=== PATIENT | male | born 1990 | race American Indian/Alaskan Native ===

== ENCOUNTER 2021-08-18 10:00 | Emergency (ER) | payer SELFPAY ==
[2021-08-18] MEDS ORDERED: levETIRAcetam 1000 MG/NS 0.75% 1,000 MG/100 ML BAG IV ONE (10:23)
--- NOTE | 2021-08-18 10:26 | Emergency Department Report ---
ED Seizure HPI - General Chief Complaint: Seizure Stated Complaint: SEIZURE Time Seen by Provider: 08/18/21 10:11 Source: patient Mode of arrival: Wheelchair Limitations: No Limitations - History of Present Illness Initial Comments: Patient is 31 years old male brought to the emergency room by his friend stating that he had seizure today. Patient is post ictal and confused now. Patient is unable to provide history. Patient stated that he is having headache and he is complaining of tongue hurting. Patient is obviously bit his tongue. Patient denied any fever or chills. No neck pain no chest pain no abdominal pain. No focal weakness numbness or tingling sensation. MD Complaint: seizure -: Sudden, This morning Description of Episode: loss of consciousness, tonic-clonic movement, post-event confusion Witnessed:: Yes Trauma: No Possible Precipitating Event: none Associated Symptoms: denies other symptoms Treatments Prior to Arrival: none - Related Data Allergies Allergy/AdvReac Type Severity Reaction Status Date / Time No Known Allergies Allergy Verified 08/18/21 10:05 ED Review of Systems ROS: Stated complaint: SEIZURE Other details as noted in HPI Comment: All other systems reviewed and negative Constitutional: denies: chills, fever Respiratory: denies: cough, shortness of breath, SOB with exertion Cardiovascular: denies: chest pain, palpitations Gastrointestinal: denies: abdominal pain, nausea Musculoskeletal: denies: back pain Neurological: headache. denies: weakness, numbness, paresthesias, confusion ED Past Medical Hx - Past Medical History Previous Medical History?: Yes Hx Seizures: Yes - Surgical History Past Surgical History?: No ED Physical Exam - General Limitations: No Limitations General appearance: postictal - Head Head exam: Present: atraumatic, normocephalic - Eye Eye exam: Present: normal appearance - ENT ENT exam: Present: mucous membranes moist - Neck Neck exam: Present: normal inspection, full ROM. Absent: tenderness, meningismus - Respiratory Respiratory exam: Present: normal lung sounds bilaterally - Cardiovascular Cardiovascular Exam: Present: regular rate, normal rhythm, normal heart sounds - GI/Abdominal GI/Abdominal exam: Present: soft, normal bowel sounds. Absent: distended, tenderness, guarding, rebound, rigid, organomegaly, mass, bruit, pulsatile mass, hernia - Extremities Exam Extremities exam: Present: normal inspection, full ROM, normal capillary refill. Absent: tenderness, pedal edema, joint swelling, calf tenderness - Back Exam Back exam: Present: normal inspection, full ROM. Absent: CVA tenderness (R), CVA tenderness (L) - Neurological Exam Neurological exam: Present: alert, oriented X3, CN II-XII intact, normal gait - Psychiatric Psychiatric exam: Present: normal mood - Skin Skin exam: Present: warm, intact, normal color ED Course Vital Signs 08/18/21 08/18/21 10:05 11:57 Temperature 98.5 F 97.6 F Pulse Rate 98 H 78 Respiratory 18 18 Rate Blood Pressure 127/66 Blood Pressure 106/68 [Left] O2 Sat by Pulse 96 98 Oximetry ED Medical Decision Making - Lab Data Result diagrams: 08/18/21 11:15 08/18/21 11:15 - Radiology Data Radiology results: report reviewed - Medical Decision Making Patient is 31 years old male brought to the emergency room by his friend stating that he had seizure today. Patient is post ictal and confused now. Patient is unable to provide history. Patient stated that he is having headache and he is complaining of tongue hurting. Patient is obviously bit his tongue. Patient denied any fever or chills. No neck pain no chest pain no abdominal pain. No focal weakness numbness or tingling sensation. Patient received 1 g of IV Keppra. No seizure activity observed. Patient now is alert, oriented x3 in no acute distress. Patient stated that he was started on Keppra 2 weeks ago but he is not compliant with his medication. I counseled the patient about medication compliance. Patient also advised to follow-up with his neurologist in the next 2 to 3 days and to return to the ER if he develop any new symptoms. Critical care attestation.: If time is entered above; I have spent that time in minutes in the direct care of this critically ill patient, excluding procedure time. ED Disposition Clinical Impression: Seizure Disposition: 01 HOME / SELF CARE / HOMELESS Is pt being admited?: No Condition: Stable Instructions: Seizure, Adult Referrals: ANDRAE ARAGON MD [Referring] - 3-5 Days
--- NOTE | 2021-08-18 11:16 | Cat Scan Report ---
CT head/brain wo con INDICATION: Seizure. TECHNIQUE: Routine CT head. All CT scans at this location are performed using CT dose reduction for A AMOS by means of automated exposure control. COMPARISON: None. FINDINGS: Intracranial: Blackwell-white matter differentiation is maintained. No intracranial hemorrhage. No extra a xial collection. No hydrocephalus. No herniation. Sinuses: Paranasal sinuses and mastoid air cells are essentially clear. Orbits: Globes are intact. Calvarium: No acute fracture. IMPRESSION: 1. No acute intracranial abnormality. Signer Name: Phil Mari MD Signed: 08/18/2021 11:12 AM Workstation Name: [id number]
[2021-08-18 11:32] LABS: Basophils % (Auto) 0.9 % (0.0-1.8); Eosinophils % (Auto) 0.6 % (0.0-4.3); Hematocrit 41.3 % (35.5-45.6); Hemoglobin 14.5 gm/dl (11.8-15.2); Lymphocytes # (Auto) 0.4 K/mm3 (1.2-5.4); Lymphocytes % (Auto) 9.8 % (13.4-35.0); Mean Corpuscular HGB Conc 35 % (32-34); Mean Corpuscular Volume 88 fl (84-94); Monocytes # (Auto) 0.6 K/mm3 (0.0-0.8); Monocytes % (Auto) 12.3 % (0.0-7.3); Platelet Count 176 K/mm3 (140-440); Red Blood Count 4.67 M/mm3 (3.65-5.03); Red Cell Distribution Width 13.9 % (13.2-15.2)
[2021-08-18 11:39] LABS: Bilirubin,Urine NEG (Negative); Blood,Urine MOD (Negative); Color,Urine Yellow (Yellow); Hyaline Casts,Urine 6 /LPF; Mucus,Urine FEW /HPF; Urobilinogen,Urine < 2.0 mg/dL (<2.0)
[2021-08-18 11:44] LABS: Amphetamine Screen,Urine Negative; Benzodiazepines Screen,Urine Negative; Cocaine Screen,Urine Negative; Methadone Screen,Urine Negative; Opiate Screen,Urine Negative
[2021-08-18 11:58] LABS: Alanine Aminotransferase 13 units/L (7-56); Albumin 4.4 g/dL (3.9-5); BUN/Creatinine Ratio 6; Blood Urea Nitrogen 7 mg/dL (9-20); Calcium 8.9 mg/dL (8.4-10.2); Hemolysis Index 9
[2021-08-18 12:01] VITALS: BP 106/68
[2021-08-18 12:01] LABS: Cannabinoid Screen,Urine Positive
[2021-08-18 12:09] LABS: Bilirubin,Direct < 0.2 mg/dL (0-0.2)
--- NOTE | 2021-08-20 11:02 | Electrocardiograph Report ---
[facility] Test Date: 2021-08-18 Test Time: 11:46:53 Pat Name: JULIO PARKER Department: Room: Gender: M Director [employer]: [id number] : 1990 Requested By: SUSHMA LEYVA Order Number: [id number] Reading MD: Martinez Morrison Measurements Intervals [place] Rate: 76 P: 1 MN: 170 QRS: 69 QRSD: 83 T: 16 QT: 348 QTc: 392 Interpretive Statements Sinus rhythm ST elev, probable normal early repol pattern No previous ECG available for comparison Electronically Signed On 08-20-2021 11:01:58 EDT by Martinez Morrison
== END 2021-08-18 15:08 | disposition home or self-care (01) ==
LOC: ED 10:00
DX: R56.9 Unspecified convulsions (principal)
CPT/HCPCS: 36415; 70450; 80048; 80076; 80307; 81001; 85025; 93005; 96374; 99284; J1953; 80320; G0480

== ENCOUNTER 2021-09-28 19:15 | Inpatient (IN) | payer SELFPAY ==
[2021-09-28] MEDS ORDERED: levETIRAcetam 1000 MG/NS 0.75% 1,000 MG/100 ML BAG IV ONE ×2 (19:21→23:45)
[2021-09-28] MEDS ORDERED: SODIUM CHLORIDE 0.9% 1000 ML 1,000 ML IV ONE ×2 (19:21→20:37)
--- NOTE | 2021-09-28 19:23 | Emergency Department Report ---
ED General Adult HPI - General Chief complaint: Altered Mental Status Stated complaint: altered mental status PUI?: Yes Time Seen by Provider: 09/28/21 19:20 Source: EMS (Verbal report received from emergency medical services. EMS documentation not available at time of chart dictation ), RN notes reviewed, old records reviewed Mode of arrival: Stretcher Limitations: Altered Mental Status - History of Present Illness Initial comments: This is a 31-year-old gentleman. He is not known to myself previously. As per review of old medical records, he appears to have a history of seizure, noncompliance, and possible marijuana use. The patient is brought to the hospital by EMS with a complaint of possible seizure. Upon arrival, the patient is awake, but altered, nonverbal, moving 4 extremities. The patient will not answer open ended or close ended questions. The patient does not describe the qualitative nature of his symptoms, exacerbating factors relieving factors or aggravating factors. History is therefore entirely obtained from EMS, and per review of old medical records. EMS reports that they found the patient in the bed, with a possible history of seizure or convulsion. EMS does not know who specifically called 911. The patient is not accompanied by friends or family at this time for collateral information or additional information. EMS reports to myself that they gave the patient Ativan in the field. EMS also reports normal Accu-Chek to myself, and fever of 101 degrees in the field. In the emergency room, we made multiple attempts to interview the patient. Discussed the need of obtaining history, appropriate laboratory studies, and imaging studies. The patient was not able to have a lucid conversation, or participate in his medical decision making, and presented is altered. He is not accompanied by friends or family or surrogate decision-maker, and demographic contacts do not indicate next of kin or family. Patient medicated with haloperidol, Ativan and Benadryl. In addition, given history of fever and seizure, had requested emergent laboratory studies, CT scan of the brain, and administration of fluids, Keppra, and antibiotics. Patient would not let IV access be obtained initially, would not permit acquisition of x-ray, or CT scan brain. Given fever, altered mental status, concern for meningitis encephalitis, lack of surrogate decision-maker, or healthcare proxy, patient is to be treated empirically for community-acquired meningitis. Given fever, seizure and altered mental status, the patient is intubated for airway protection, to allow for acquisition of time sensitive diagnostic studies, and to initiate time sensitive therapeutic interventions. It is my opinion that moderate sedation given fever and altered mental status, as well as seizures is too risky. Patient therefore intubated emergently by myself using rapid sequence induction techniques. Vancomycin, Decadron, ceftriaxone, and acyclovir ordered. Contacted critical care on-call, Dr. Marta Cardenas Discussed history, physical, laboratory studies and imaging studies and plan of care. Critical care will follow in consultation, and authorizes admission to the critical care unit. Hospital physician, Dr Carmen Coronado to admit to ICU -: unknown - Related Data Previous Rx's Medication Instructions Recorded Last Taken Type levETIRAcetam [Keppra] 500 mg PO BID #60 udc 08/18/21 Unknown Rx Allergies Allergy/AdvReac Type Severity Reaction Status Date / Time No Known Allergies Allergy Verified 09/28/21 19:35 ED Review of Systems ROS: Stated complaint: SEIZURE Other details as noted in HPI Comment: Unobtainable due to pts medical conditions ED Past Medical Hx - Past Medical History Hx Seizures: Yes - Medications Home Medications: Home Medications Medication Instructions Recorded Confirmed Last Taken Type levETIRAcetam [Keppra] 500 mg PO BID #60 udc 08/18/21 Unknown Rx ED Physical Exam - General Limitations: Altered Mental Status General appearance: lethargic - Head Head exam: Present: atraumatic, normocephalic - Eye Eye exam: Present: normal appearance, EOMI - ENT ENT exam: Present: normal exam, mucous membranes moist, normal external ear exam - Neck Neck exam: Present: normal inspection, full ROM. Absent: tenderness, meningismus - Respiratory Respiratory exam: Present: decreased breath sounds. Absent: wheezes, rales, rhonchi, stridor - Cardiovascular Cardiovascular Exam: Present: regular rate, normal rhythm, normal heart sounds. Absent: bradycardia, tachycardia, irregular rhythm, systolic murmur, diastolic murmur, rubs, gallop - GI/Abdominal GI/Abdominal exam: Present: soft. Absent: distended, tenderness, guarding, rebound, rigid, pulsatile mass - Rectal Rectal exam: Present: normal inspection - exam: Present: normal inspection External exam: Present: normal external exam - Extremities Exam Extremities exam: Present: normal inspection, full ROM, other (2+ pulses noted in the bilateral upper and lower extremities. There is no palpable cord. negative Homans sign. Muscular compartments are soft. The pelvis is stable.). Absent: pedal edema, calf tenderness - Back Exam Back exam: Present: normal inspection. Absent: tenderness, CVA tenderness (R), CVA tenderness (L), paraspinal tenderness, vertebral tenderness - Neurological Exam Neurological exam: Present: altered, other (5 out of 5 strength in 4 extremities. Hyperreflexia noted. Bilateral lower extremities with fatigable clonus noted) - Psychiatric Psychiatric exam: Present: other (The patient is nonverbal) - Skin Skin exam: Present: warm, dry, intact, normal color. Absent: rash ED Course Vital Signs 09/28/21 09/28/21 19:30 22:05 Temperature 101.3 F H Pulse Rate 75 157 H Respiratory 19 Rate Blood Pressure 162/110 Blood Pressure 118/65 [Left] O2 Sat by Pulse 98 95 Oximetry - Consultations Consultation #1: 09/29/21 00:46 Discussed history, physical, laboratory studies and imaging studies overall plan of care and clinical impression with critical care physician on-call, Dr. Cardenas She is in agreement with the plan of care, and will follow in the intensive care unit. - Intubation Time Out Performed: No (Emergency situation) Sedative: Etomidate Mg Given: 20 Paralytic: Rocuronium Mg Given: 100 Laryngoscope: fiberoptic video scope Size: 4 Assist Device Used: fiberoptic device ET Tube Size: 7.5 Tube Secured Location: lips Tube Placement Confirmation: visualized tube passing t, equal breath sounds bilat, no breath sounds over epi, confirmation by capnometr Patient Tolerated Procedure: well Intubation Complications: none Additional Comments: Patient emergently and administratively consented for oral endotracheal intubation, given the need to secure her airway, to allow for acquisition of time sensitive diagnostic studies, and to initiate time sensitive therapeutic interventions, for patient with acute encephalopathy, fever, and history of seizure. Patient placed on nasal cannula at 15 L/min. He is induced with 20 mg of etomidate, and paralyzed with 100 mg of rocuronium. He receives assisted [id number] ventilation by myself. Airway is opened easily, video laryngoscope S 4, inserted into the oropharynx, and a 7.5 endotracheal tube was gently inserted into the trachea, under direct visual observation. Wet Sander balloon is inflated, end-tidal capnography attached endotracheal tube, and post intubation breath sounds are appreciated. The patient tolerated the procedure well, and without obvious complication - Lumbar Puncture Consent Obtained: emergent situation Time Out Performed: Yes Indication for Procedure: fever work up, change in mental status Patient Position: left lateral decubitus Skin Prep: Povidone-Iodine 1% Local Anesthetic Used: Lidocaine 1% Amount of anesthesia used (mls): 5 Spinal Needle Gauge: 20G Spinal Needle Length: 3in Interspace Used: L4-L5 Fluid Initially Obtained: clear Complications: none Patient Tolerated Procedure: well Additional Comments: Patient is emergently and administratively consented for lumbar puncture, given history of fever, seizure, altered mental status. The patient is not accompanied by surrogate decision-maker. Meningitis/encephalitis are time sensitive diagnoses, and therefore, acquisition of CSF to guide diagnostic and therapeutic decision making is critical. Lumbar puncture performed patient tolerated the procedure well, CSF results pending. ED Medical Decision Making - Lab Data Result diagrams: 09/28/21 21:49 09/28/21 21:49 Vital Signs 09/28/21 09/28/21 19:30 22:05 Temperature 101.3 F H Pulse Rate 75 157 H Respiratory 19 Rate Blood Pressure 162/110 Blood Pressure 118/65 [Left] O2 Sat by Pulse 98 95 Oximetry Lab Results 09/28/21 09/28/21 09/28/21 Range/Units 21:49 21:49 21:49 WBC 13.6 H (4.5-11.0) K/mm3 RBC 5.32 H (3.65-5.03) M/mm3 Hgb 15.2 (11.8-15.2) gm/dl Hct 46.1 H (35.5-45.6) % MCV 87 (84-94) fl MCH 29 (28-32) pg MCHC 33 (32-34) % RDW 14.2 (13.2-15.2) % Plt Count 224 (140-440) K/mm3 Add Manual Diff Complete Total Counted 100 Seg Neutrophils % Natural Resource Specialist Seg Neuts % (Manual) 89.0 H (40.0-70.0) % Lymphocytes % (Manual) 6.0 L (13.4-35.0) % Monocytes % (Manual) 5.0 (0.0-7.3) % Nucleated RBC % Not Reportable Seg Neutrophils # Man 12.1 H (1.8-7.7) K/mm3 Band Neutrophils # 0.0 K/mm3 Lymphocytes # (Manual) 0.8 L (1.2-5.4) K/mm3 Abs React Lymphs (Man) 0.0 K/mm3 Monocytes # (Manual) 0.7 (0.0-0.8) K/mm3 Eosinophils # (Manual) 0.0 (0.0-0.4) K/mm3 Basophils # (Manual) 0.0 (0.0-0.1) K/mm3 Metamyelocytes # 0.0 K/mm3 Myelocytes # 0.0 K/mm3 Promyelocytes # 0.0 K/mm3 Blast Cells # 0.0 K/mm3 WBC Morphology Not Reportable Hypersegmented Neuts Not Reportable Hyposegmented Neuts Not Reportable Hypogranular Neuts Not Reportable Smudge Cells Not Reportable Toxic Granulation Not Reportable Toxic Vacuolation Not Reportable Dohle Bodies Not Reportable Pelger-Huet Anomaly Not Reportable Miya Rods Not Reportable Platelet Estimate Not Reportable Clumped Platelets Not Reportable Plt Clumps, EDTA Not Reportable Large Platelets Not Reportable Giant Platelets Not Reportable Platelet Satelliting Not Reportable Plt Morphology Comment Not Reportable RBC Morphology Normal Dimorphic RBCs Not Reportable Polychromasia Not Reportable Hypochromasia Not Reportable Poikilocytosis Not Reportable Anisocytosis Not Reportable Microcytosis Not Reportable Macrocytosis Not Reportable Spherocytes Not Reportable Pappenheimer Bodies Not Reportable Sickle Cells Not Reportable Target Cells Not Reportable Tear Drop Cells Not Reportable Ovalocytes Not Reportable Helmet Cells Not Reportable [place] Bodies Not Reportable [place] Rings Not Reportable Ong Cells Not Reportable Bite Cells Not Reportable Crenated Cell Not Reportable Elliptocytes Not Reportable Acanthocytes (Spur) Not Reportable Rouleaux Not Reportable Hemoglobin C Crystals Not Reportable Schistocytes Not Reportable Malaria parasites Not Reportable Renzo Bodies Not Reportable Hem Pathologist Commnt No PT (12.2-14.9) Sec. INR (0.87-1.13) APTT (24.2-36.6) Sec. Sodium 139 (137-145) mmol/L Potassium 3.6 (3.6-5.0) mmol/L Chloride 105.1 (98-107) mmol/L Carbon Dioxide 17 L (22-30) mmol/L Anion Gap 21 mmol/L BUN 16 (9-20) mg/dL Creatinine 1.4 H (0.8-1.3) mg/dL Estimated GFR > 60 ml/min BUN/Creatinine Ratio 11 % Glucose 103 H (75-100) mg/dL Lactic Acid (0.7-2.0) mmol/L Calcium 9.4 (8.4-10.2) mg/dL Total Bilirubin 0.60 (0.1-1.2) mg/dL AST 35 (5-40) units/L ALT 27 (7-56) units/L Alkaline Phosphatase 76 (35-129) units/L Total Creatine Kinase 962 H (55-170) units/L Total Protein 8.2 (6.3-8.2) g/dL Albumin 4.7 (3.9-5) g/dL Albumin/Globulin Ratio 1.3 % Salicylates < 0.3 L (2.8-20.0) mg/dL Acetaminophen (10.0-30.0) ug/mL Plasma/Serum Alcohol (0-0.07) % 09/28/21 09/28/21 09/28/21 Range/Units 21:49 21:49 21:49 WBC (4.5-11.0) K/mm3 RBC (3.65-5.03) M/mm3 Hgb (11.8-15.2) gm/dl Hct (35.5-45.6) % MCV (84-94) fl MCH (28-32) pg MCHC (32-34) % RDW (13.2-15.2) % Plt Count (140-440) K/mm3 Add Manual Diff Total Counted Seg Neutrophils % Seg Neuts % (Manual) (40.0-70.0) % Lymphocytes % (Manual) (13.4-35.0) % Monocytes % (Manual) (0.0-7.3) % Nucleated RBC % Seg Neutrophils # Man (1.8-7.7) K/mm3 Band Neutrophils # K/mm3 Lymphocytes # (Manual) (1.2-5.4) K/mm3 Abs React Lymphs (Man) K/mm3 Monocytes # (Manual) (0.0-0.8) K/mm3 Eosinophils # (Manual) (0.0-0.4) K/mm3 Basophils # (Manual) (0.0-0.1) K/mm3 Metamyelocytes # K/mm3 Myelocytes # K/mm3 Promyelocytes # K/mm3 Blast Cells # K/mm3 WBC Morphology Hypersegmented Neuts Hyposegmented Neuts Hypogranular Neuts Smudge Cells Toxic Granulation Toxic Vacuolation Dohle Bodies Pelger-Huet Anomaly Miya Rods Platelet Estimate Clumped Platelets Plt Clumps, EDTA Large Platelets Giant Platelets Platelet Satelliting Plt Morphology Comment RBC Morphology Dimorphic RBCs Polychromasia Hypochromasia Poikilocytosis Anisocytosis Microcytosis Macrocytosis Spherocytes Pappenheimer Bodies Sickle Cells Target Cells Tear Drop Cells Ovalocytes Helmet Cells [place] Bodies [place] Rings Ong Cells Bite Cells Crenated Cell Elliptocytes Acanthocytes (Spur) Rouleaux Hemoglobin C Crystals Schistocytes Malaria parasites Renzo Bodies Hem Pathologist Commnt PT 13.1 (12.2-14.9) Sec. INR 0.89 (0.87-1.13) APTT 22.1 L (24.2-36.6) Sec. Sodium (137-145) mmol/L Potassium (3.6-5.0) mmol/L Chloride (98-107) mmol/L Carbon Dioxide (22-30) mmol/L Anion Gap mmol/L BUN (9-20) mg/dL Creatinine (0.8-1.3) mg/dL Estimated GFR ml/min BUN/Creatinine Ratio % Glucose (75-100) mg/dL Lactic Acid (0.7-2.0) mmol/L Calcium (8.4-10.2) mg/dL Total Bilirubin (0.1-1.2) mg/dL AST (5-40) units/L ALT (7-56) units/L Alkaline Phosphatase (35-129) units/L Total Creatine Kinase (55-170) units/L Total Protein (6.3-8.2) g/dL Albumin (3.9-5) g/dL Albumin/Globulin Ratio % Salicylates (2.8-20.0) mg/dL Acetaminophen 5.0 L (10.0-30.0) ug/mL Plasma/Serum Alcohol < 0.01 (0-0.07) % 09/28/21 Range/Units 21:49 WBC (4.5-11.0) K/mm3 RBC (3.65-5.03) M/mm3 Hgb (11.8-15.2) gm/dl Hct (35.5-45.6) % MCV (84-94) fl MCH (28-32) pg MCHC (32-34) % RDW (13.2-15.2) % Plt Count (140-440) K/mm3 Add Manual Diff Total Counted Seg Neutrophils % Seg Neuts % (Manual) (40.0-70.0) % Lymphocytes % (Manual) (13.4-35.0) % Monocytes % (Manual) (0.0-7.3) % Nucleated RBC % Seg Neutrophils # Man (1.8-7.7) K/mm3 Band Neutrophils # K/mm3 Lymphocytes # (Manual) (1.2-5.4) K/mm3 Abs React Lymphs (Man) K/mm3 Monocytes # (Manual) (0.0-0.8) K/mm3 Eosinophils # (Manual) (0.0-0.4) K/mm3 Basophils # (Manual) (0.0-0.1) K/mm3 Metamyelocytes # K/mm3 Myelocytes # K/mm3 Promyelocytes # K/mm3 Blast Cells # K/mm3 WBC Morphology Hypersegmented Neuts Hyposegmented Neuts Hypogranular Neuts Smudge Cells Toxic Granulation Toxic Vacuolation Dohle Bodies Pelger-Huet Anomaly Miya Rods Platelet Estimate Clumped Platelets Plt Clumps, EDTA Large Platelets Giant Platelets Platelet Satelliting Plt Morphology Comment RBC Morphology Dimorphic RBCs Polychromasia Hypochromasia Poikilocytosis Anisocytosis Microcytosis Macrocytosis Spherocytes Pappenheimer Bodies Sickle Cells Target Cells Tear Drop Cells Ovalocytes Helmet Cells [place] Bodies [place] Rings Ong Cells Bite Cells Crenated Cell Elliptocytes Acanthocytes (Spur) Rouleaux Hemoglobin C Crystals Schistocytes Malaria parasites Renzo Bodies Hem Pathologist Commnt PT (12.2-14.9) Sec. INR (0.87-1.13) APTT (24.2-36.6) Sec. Sodium (137-145) mmol/L Potassium (3.6-5.0) mmol/L Chloride (98-107) mmol/L Carbon Dioxide (22-30) mmol/L Anion Gap mmol/L BUN (9-20) mg/dL Creatinine (0.8-1.3) mg/dL Estimated GFR ml/min BUN/Creatinine Ratio % Glucose (75-100) mg/dL Lactic Acid 1.00 (0.7-2.0) mmol/L Calcium (8.4-10.2) mg/dL Total Bilirubin (0.1-1.2) mg/dL AST (5-40) units/L ALT (7-56) units/L Alkaline Phosphatase (35-129) units/L Total Creatine Kinase (55-170) units/L Total Protein (6.3-8.2) g/dL Albumin (3.9-5) g/dL Albumin/Globulin Ratio % Salicylates (2.8-20.0) mg/dL Acetaminophen (10.0-30.0) ug/mL Plasma/Serum Alcohol (0-0.07) % - Radiology Data Radiology results: pending, report reviewed, image reviewed CHEST 1 VIEW INDICATION / CLINICAL INFORMATION: ETT placement. COMPARISON: None available. FINDINGS: SUPPORT DEVICES: Endotracheal tube noted with tip approximately 3 cm above the elena. HEART / MEDIASTINUM: No significant abnormality. LUNGS / PLEURA: No significant pulmonary or pleural abnormality. No pneumothorax. ADDITIONAL FINDINGS: No significant additional findings. IMPRESSION: 1. Endotracheal tube with tip noted approximately 3 cm above the elena. 2. No acute cardiopulmonary abnormality. Signer Name: Wayne Pryor MD Signed: 09/28/2021 9:13 PM Workstation Name: [id number] CT HEAD WITHOUT CONTRAST INDICATION / CLINICAL INFORMATION: Seizure. TECHNIQUE: All CT scans at this location are performed using CT dose reduction for ALARA by means of automated exposure control. COMPARISON: 08/18/21. FINDINGS: HEMORRHAGE: None. EXTRA-AXIAL SPACES: Normal in size and morphology for the patient's age. VENTRICULAR SYSTEM: Normal in size and morphology for the patient's age. CEREBRAL PARENCHYMA: No significant abnormality. No acute territorial infarct. MIDLINE SHIFT / HERNIATION: None. CEREBELLUM / BRAINSTEM: No significant abnormality. ORBITS: Normal as visualized. SOFT TISSUES: No significant abnormality. SKULL: No significant abnormality. PARANASAL SINUSES / MASTOID AIR CELLS: Normal as visualized. ADDITIONAL FINDINGS: None. IMPRESSION: No acute intracranial abnormality or significant change. Signer Name: Cheo Darling MD Signed: 09/28/2021 11:02 PM Workstation Name: [id number] CT CERVICAL SPINE WITHOUT CONTRAST INDICATION / CLINICAL INFORMATION: Seizure and altered mental status. TECHNIQUE: Axial CT images were obtained through the cervical spine. Sagittal and coronal reformatted images were produced. All CT scans at this location are performed using CT dose reduction for ALARA by means of automated exposure control. COMPARISON: None available. FINDINGS: VERTEBRAE: No significant abnormality. ALIGNMENT: No significant abnormality. DISC SPACES: No significant abnormality. FACET JOINTS: No significant abnormality. CRANIOCERVICAL JUNCTION:No significant abnormality. SPINAL CANAL: No significant abnormality. PARASPINAL SOFT TISSUES: No significant abnormality. ADDITIONAL FINDINGS: There is an endotracheal tube with the tip not seen. LUNG APICES: No significant abnormality of visualized lungs. IMPRESSION: No significant abnormality. Signer Name: Cheo Darling MD Signed: 09/28/2021 11:04 PM Workstation Name: [id number] - Medical Decision Making Differential diagnosis, including but limited to: Toxic metabolic encephalopathy, serotonin syndrome, neuroleptic malignant syndrome, meningitis, encephalitis Assessment and plan: 31-year-old gentleman with fever and altered mental status without obvious source. He is febrile, and does not have decision-making capaci ty. Chest x-ray clear. Belly soft. No seizures noted here in the emergency room. Given that patient is awake but altered, but without seizures, no convulsive activity noted, this is very unlikely to be status epilepticus. This is much more likely to be a toxic metabolic encephalopathy, or infectious encephalopathy. Patient loaded with fluids, Keppra, Decadron, vancomycin, and ceftriaxone. Critical care on board. [facility] medicine to admit the patient to the ICU. CSF obtained by myself, results pending, I will defer to the inpatient team to follow-up on CSF results. Critical Care Time: Yes Critical care time in (mins) excluding proc time.: 60 Critical care attestation.: If time is entered above; I have spent that time in minutes in the direct care of this critically ill patient, excluding procedure time. ED Disposition Clinical Impression: Acute febrile illness, Acute encephalopathy, History of seizure Disposition: ADMITTED INPATIENT Is pt being admited?: Yes Does the pt Need Aspirin: No Condition: Critical
[2021-09-28] MEDS ORDERED: HALOPERIDOL LACTATE 5 MG/1 ML INJ IM ONE (19:46)
[2021-09-28] MEDS ORDERED: LORazepam 2 MG/ML VIAL IM STA (19:46)
[2021-09-28] MEDS ORDERED: diphenhydrAMINE 50 MG/ML VIAL IM ONE (19:46)
[2021-09-28] MEDS ORDERED: dexAMETHasone 20 MG/5 ML VIAL IV ONE (20:36)
[2021-09-28] MEDS ORDERED: cefTRIAXone/NS 2 GM/100 ML 2 GM/100 ML BAG IV ONE (20:36)
[2021-09-28] MEDS ORDERED: VANCOMYCIN 2,000 MG in SODIUM CHLORIDE 0.9% 500 ML 500 ML IV ONE (21:30)
[2021-09-28] MEDS ORDERED: MIDAZOLAM 2 MG/2 ML INJ IV ONE (21:37)
[2021-09-28] MEDS ORDERED: ROCURONIUM 50 MG/5 ML INJ IV ONE (21:52)
[2021-09-28] MEDS ORDERED: LIP THERAPY VASELINE TP PRN (21:52)
[2021-09-28] MEDS ORDERED: fentaNYL 100 MCG/2 ML INJ IV PRN (21:52)
[2021-09-28] MEDS ORDERED: MINERAL OIL/PETROLATUM, WHITE OPHTH OINT 3.5 GM OU PRN (21:52)
[2021-09-28] MEDS ORDERED: ETOMIDATE 20 MG/10 ML INJ IV ONE (21:52)
[2021-09-28 22:04] LABS: Hematocrit 46.1 % (35.5-45.6); Hemoglobin 15.2 gm/dl (11.8-15.2); Mean Corpuscular HGB Conc 33 % (32-34); Mean Corpuscular Volume 87 fl (84-94); Platelet Count 224 K/mm3 (140-440); Red Blood Count 5.32 M/mm3 (3.65-5.03); Red Cell Distribution Width 14.2 % (13.2-15.2)
[2021-09-28 22:14] LABS: INR 0.89 (0.87-1.13)
[2021-09-28 22:15] LABS: Partial Thromboplastin Time 22.1 Sec. (24.2-36.6)
--- NOTE | 2021-09-28 22:17 | XRay Report ---
CHEST 1 VIEW INDICATION / CLINICAL INFORMATION: ETT placement. COMPARISON: None available. FINDINGS: SUPPORT DEVICES: Endotracheal tube noted with tip approximately 3 cm above the elena. HEART / MEDIASTINUM: No significant abnormality. LUNGS / PLEURA: No significant pulmonary or pleural abnormality. No pneumothorax. ADDITIONAL FINDINGS: No significant additional findings. IMPRESSION: 1. Endotracheal tube with tip noted approximately 3 cm above the elena. 2. No acute cardiopulmonary abnormality. Signer Name: Wayne Pryor MD Signed: 09/28/2021 10:13 PM Workstation Name: [id number]
[2021-09-28 22:25] LABS: Alanine Aminotransferase 27 units/L (7-56); Albumin 4.7 g/dL (3.9-5); BUN/Creatinine Ratio 11; Blood Urea Nitrogen 16 mg/dL (9-20); Calcium 9.4 mg/dL (8.4-10.2); Hemolysis Index 12
[2021-09-28] MEDS ORDERED: PHENobarbitaL 130 MG/ML VIAL IV ONE (22:42)
[2021-09-28] MEDS ORDERED: ACETAMINOPHEN 650 MG RECT SUPP PR ONE (22:42)
[2021-09-28] MEDS ORDERED: LORazepam 2 MG/ML VIAL ONE (22:44)
[2021-09-28] MEDS ORDERED: LORazepam 2 MG/ML VIAL IV STA (22:44)
[2021-09-28] MEDS ORDERED: ACYCLOVIR 800 MG in SODIUM CHLORIDE 0.9% 100 ML IV ONE (22:52)
[2021-09-28 23:13] LABS: Total Cells Counted 100
[2021-09-28 23:14] LABS: RBC Morphology Normal
[2021-09-28] MEDS ORDERED: LIDOCAINE (1%) 10 MG/1 ML VIAL 20 ML MDV INFILTRATI ONE (23:32)
--- NOTE | 2021-09-29 00:07 | Cat Scan Report ---
CT HEAD WITHOUT CONTRAST INDICATION / CLINICAL INFORMATION: Seizure. TECHNIQUE: All CT scans at this location are performed using CT dose reduction for ALARA by means of automated exposure control. COMPARISON: 08/18/21. FINDINGS: HEMORRHAGE: None. EXTRA-AXIAL SPACES: Normal in size and morphology for the patient's age. VENTRICULAR SYSTEM: Normal in size and morphology for the patient's age. CEREBRAL PARENCHYMA: No significant abnormality. No acute territorial infarct. MIDLINE SHIFT / HERNIATION: None. CEREBELLUM / BRAINSTEM: No significant abnormality. ORBITS: Normal as visualized. SOFT TISSUES: No significant abnormality. SKULL: No significant abnormality. PARANASAL SINUSES / MASTOID AIR CELLS: Normal as visualized. ADDITIONAL FINDINGS: None. IMPRESSION: No acute intracranial abnormality or significant change. Signer Name: Cheo Darling MD Signed: 09/29/2021 12:02 AM Workstation Name: [id number]
--- NOTE | 2021-09-29 00:08 | Cat Scan Report ---
CT CERVICAL SPINE WITHOUT CONTRAST INDICATION / CLINICAL INFORMATION: Seizure and altered mental status. TECHNIQUE: Axial CT images were obtained through the cervical spine. Sagittal and coronal reformatted images were produced. All CT scans at this location are performed using CT dose reduction for ALARA by means of automated exposure control. COMPARISON: None available. FINDINGS: VERTEBRAE: No significant abnormality. ALIGNMENT: No significant abnormality. DISC SPACES: No significant abnormality. FACET JOINTS: No significant abnormality. CRANIOCERVICAL JUNCTION:No significant abnormality. SPINAL CANAL: No significant abnormality. PARASPINAL SOFT TISSUES: No significant abnormality. ADDITIONAL FINDINGS: There is an endotracheal tube with the tip not seen. LUNG APICES: No significant abnormality of visualized lungs. IMPRESSION: No significant abnormality. Signer Name: Cheo Darling MD Signed: 09/29/2021 12:04 AM Workstation Name: [id number]
[2021-09-29] MEDS: fentaNYL DRIP Premix 2,000 MCG/100 ML BAG IV SCH ×2 (00:13→18:15)
[2021-09-29 00:48] LABS: Glucose,CSF 78 mg/dL
[2021-09-29] MEDS ORDERED: SODIUM CHLORIDE 0.9% 1000 ML 1,000 ML IV ONE (00:48)
[2021-09-29] MEDS ORDERED: MIDAZOLAM 5 MG/5 ML INJ MDV IV NR (01:00)
[2021-09-29 01:24] LABS: Bilirubin,Urine NEG (Negative); Blood,Urine NEG (Negative); Color,Urine Colorless (Yellow); Mucus,Urine FEW /HPF; Protein,Urine <15 mg/dL mg/dL (Negative); Urobilinogen,Urine < 2.0 mg/dL (<2.0)
[2021-09-29 01:34] LABS: Appearance,CSF Clear
[2021-09-29 01:35] LABS: Red Blood Cell,CSF 11 /mm3 (0-0); White Blood Cell,CSF 32 /mm3 (1-10)
[2021-09-29 02:05] LABS: Basophils CSF 0 %; Total Cells Counted 100 /mm3
[2021-09-29] MEDS ORDERED: MORPHINE 4 MG/1 ML INJ IV PRN (02:08)
[2021-09-29] MEDS ORDERED: ACETAMINOPHEN 325 MG TAB PO PRN (02:08)
[2021-09-29] MEDS ORDERED: MORPHINE 2 MG/1 ML INJ IV PRN (02:08)
[2021-09-29 02:10] LABS: Amphetamine Screen,Urine Negative; Cocaine Screen,Urine Negative; Methadone Screen,Urine Negative; Opiate Screen,Urine Negative
[2021-09-29] MEDS ORDERED: SODIUM CHLORIDE 0.9% 1000 ML 1,000 ML IV SCH (02:15)
[2021-09-29] MEDS ORDERED: MAGNESIUM HYDROXIDE (MOM) ORAL LIQD UDC PO PRN (02:17)
[2021-09-29 02:24] LABS: Benzodiazepines Screen,Urine Positive; Cannabinoid Screen,Urine Positive
--- NOTE | 2021-09-29 02:44 | History and Physical Report ---
History of Present Illness Date of examination: 09/29/21 Date of admission: 09/29/21 00:47 Chief complaint: Altered mental status History of present illness: 31-year-old -[place] male with known history of seizure brought into the emergency room today by EMS with a complaint of possible seizures. Upon arrival in the emergency room patient was awake but was altered and nonverbal. Most of the history was obtained from EMS. EMS was said to have been called for possible seizure, Accu-Chek was said to be within normal limits however patient had a temperature of about 101F on the field. Patient was found to be quite combative upon arrival in the emergency room and was uncooperative for evaluation. Patient was subsequently intubated for airway protection. Work-up in the emergency room today, lab reveals a leukocytosis of 13.6, CO2 of 17, creatinine of 1.4. Urinalysis reveals turbid urine with 150 WBC. CSF shows WBC of 32, RBC 11, neutrophils 66, monocytes 18, monocyte 14, glucose 78, total protein 28. UDS was significant for marijuana and benzodiazepine. CT of the head, cervical spine and chest x-ray were unremarkable. Patient is being treated for possible meningitis/encephalitis. He was also placed on IV Keppra for seizure disorder. Past History Past Medical History: seizures Past Surgical History: Other Social history: other (Unobtainable unobtainable) Family history: other (Unobtainable) Medications and Allergies Allergies Allergy/AdvReac Type Severity Reaction Status Date / Time No Known Allergies Allergy Verified 09/28/21 19:35 Home Medications Medication Instructions Recorded Confirmed Last Taken Type levETIRAcetam [Keppra] 500 mg PO BID #60 [facility] [place] 08/18/21 Unknown Rx Active Meds: Active Medications Acetaminophen (Acetaminophen 325 Mg Tab) 650 mg PO Q6H PRN PRN Reason: Pain MILD(1-3)/Fever >100.5/DOE Famotidine (Famotidine 20 Mg/2 Ml Inj) 20 mg IV BID IZA Fentanyl (Fentanyl 100 Mcg/2 Ml Inj) 50 mcg IV Q10MIN PRN PRN Reason: ANALGESIA Hydrophilic Ointment (Lip Therapy Vaseline) 1 applic TP Q2HR PRN PRN Reason: Dry Lips Propofol (Diprivan 10 Mg/Ml) 1,000 mg in 100 mls @ 14.969 mls/hr IV TITR IZA; Protocol Last Admin: 09/28/21 22:25 Dose: 25 mcg/kg/min, 14.969 mls/hr Documented by: Fentanyl Citrate (Fentanyl Drip Premix) 2,000 mcg in 100 mls @ 4.99 mls/hr IV TITR IZA; Protocol Sodium Chloride (Nacl 0.9% 1000 Ml) 1,000 mls @ 125 mls/hr IV DIRECT IZA Magnesium Hydroxide (Magnesium Hydroxide (Mom) Oral Liqd Udc) 30 ml PO Q4H PRN PRN Reason: Constipation Midazolam HCl (Midazolam 5 Mg/5 Ml Inj Mdv) 5 mg IV ONCE NR Stop: 09/30/21 00:59 Morphine Sulfate (Morphine 2 Mg/1 Ml Inj) 2 mg IV Q4H PRN PRN Reason: Pain, Moderate (4-6) Morphine Sulfate (Morphine 4 Mg/1 Ml Inj) 4 mg IV Q4H PRN PRN Reason: Pain , Severe (7-10) Multi-Ingred Cream/Lotion/Oil/Oint (Mineral Oil/Petrolatum, White Ophth Oint 3.5 Gm) 1 applic OU Q4HR PRN PRN Reason: Dry Eye(s) Senna/Docusate Sodium (Sennosides/Docusate Sodium 8.6/50 Mg Tab) 1 tab FEEDTUBE BID IZA Sodium Chloride (Sodium Chloride 0.9% 10 Ml Flush Syringe) 10 ml IV BID IZA Sodium Chloride (Sodium Chloride 0.9% 10 Ml Flush Syringe) 10 ml IV PRN PRN PRN Reason: LINE FLUSH Review of Systems ROS unobtainable: due to endotracheal tube Exam - Constitutional Vitals: Temp Pulse Resp BP Pulse Ox 97.9 F 73 24 105/62 100 09/29/21 02:00 09/29/21 02:15 09/29/21 02:15 09/29/21 02:15 09/29/21 02:15 General appearance: Present: no acute distress, well-nourished - EENT Eyes: Present: PERRL, EOM intact. Absent: scleral icterus ENT: hearing intact, clear oral mucosa, dentition normal - Neck Neck: Present: supple, normal ROM - Respiratory Respiratory effort: normal Respiratory: bilateral: CTA - Cardiovascular Rhythm: regular Heart Sounds: Present: S1 & S2. Absent: gallop, systolic murmur, diastolic murmur, rub, click - Extremities Extremities: no ischemia, pulses intact, pulses symmetrical, No edema, normal temperature, normal color, Full ROM - Abdominal General gastrointestinal: Present: soft, non-tender, non-distended, normal bowel sounds. Absent: mass - Integumentary Integumentary: Present: clear, warm, dry. Absent: rash - Musculoskeletal Musculoskeletal: strength equal bilaterally - Psychiatric Psychiatric: cooperative - Neurologic Neurologic: CNII-XII intact, no focal deficits, moves all extremities Results - Labs CBC & Chem 7: 09/28/21 21:49 09/28/21 21:49 Labs: Abnormal lab results 09/28/21 09/28/21 09/28/21 Range/Units 21:49 21:49 21:49 WBC 13.6 H (4.5-11.0) K/mm3 RBC 5.32 H (3.65-5.03) M/mm3 Hct 46.1 H (35.5-45.6) % Seg Neuts % (Manual) 89.0 H (40.0-70.0) % Lymphocytes % (Manual) 6.0 L (13.4-35.0) % Seg Neutrophils # Man 12.1 H (1.8-7.7) K/mm3 Lymphocytes # (Manual) 0.8 L (1.2-5.4) K/mm3 APTT (24.2-36.6) Sec. POC ABG pCO2 (32.0-48.0) mmHg POC ABG pO2 (83-108) mmHg ABG Oxyhemoglobin (94-98) ABG Chloride (98-107) mmol/L ABG Glucose (65-95) mg/dL Carboxyhemoglobin (0.5-1.5) Carbon Dioxide 17 L (22-30) mmol/L Creatinine 1.4 H (0.8-1.3) mg/dL Glucose 103 H (75-100) mg/dL Total Creatine Kinase 962 H (55-170) units/L Arterial Blood Glucose (65-95) mg/dL Urine WBC (Auto) (0.0-6.0) /HPF Salicylates < 0.3 L (2.8-20.0) mg/dL Acetaminophen (10.0-30.0) ug/mL 11/09/28/21 09/29/21 Range/Units 21:49 21:49 00:57 WBC (4.5-11.0) K/mm3 RBC (3.65-5.03) M/mm3 Hct (35.5-45.6) % Seg Neuts % (Manual) (40.0-70.0) % Lymphocytes % (Manual) (13.4-35.0) % Seg Neutrophils # Man (1.8-7.7) K/mm3 Lymphocytes # (Manual) (1.2-5.4) K/mm3 APTT 22.1 L (24.2-36.6) Sec. POC ABG pCO2 28.7 L (32.0-48.0) mmHg POC ABG pO2 228.9 H (83-108) mmHg ABG Oxyhemoglobin 98.9 H (94-98) ABG Chloride 109.0 H (98-107) mmol/L ABG Glucose 105 H (65-95) mg/dL Carboxyhemoglobin 0 L (0.5-1.5) Carbon Dioxide (22-30) mmol/L Creatinine (0.8-1.3) mg/dL Glucose (75-100) mg/dL Total Creatine Kinase (55-170) units/L Arterial Blood Glucose 105 H (65-95) mg/dL Urine WBC (Auto) (0.0-6.0) /HPF Salicylates (2.8-20.0) mg/dL Acetaminophen 5.0 L (10.0-30.0) ug/mL 09/29/21 Range/Units Unknown WBC (4.5-11.0) K/mm3 RBC (3.65-5.03) M/mm3 Hct (35.5-45.6) % Seg Neuts % (Manual) (40.0-70.0) % Lymphocytes % (Manual) (13.4-35.0) % Seg Neutrophils # Man (1.8-7.7) K/mm3 Lymphocytes # (Manual) (1.2-5.4) K/mm3 APTT (24.2-36.6) Sec. POC ABG pCO2 (32.0-48.0) mmHg POC ABG pO2 (83-108) mmHg ABG Oxyhemoglobin (94-98) ABG Chloride (98-107) mmol/L ABG Glucose (65-95) mg/dL Carboxyhemoglobin (0.5-1.5) Carbon Dioxide (22-30) mmol/L Creatinine (0.8-1.3) mg/dL Glucose (75-100) mg/dL Total Creatine Kinase (55-170) units/L Arterial Blood Glucose (65-95) mg/dL Urine WBC (Auto) 150.0 H (0.0-6.0) /HPF Salicylates (2.8-20.0) mg/dL Acetaminophen (10.0-30.0) ug/mL Assessment and Plan - Patient Problems (1) Acute encephalopathy Current Visit: Yes Status: Acute Plan to address problem: Possibly secondary to seizure disorder/meningitis. Patient currently admitted into the intensive care unit We will continue on empiric IV antibiotics and IV fluid. We will monitor mental status. (2) Acute febrile illness Current Visit: Yes Status: Acute Plan to address problem: Possibly secondary to underlying meningitis/encephalitis. We will continue on empiric IV antibiotics. Will await culture results. (3) History of seizure Current Visit: Yes Status: Acute Plan to address problem: We will place on seizure precautions. Patient started on IV Keppra. Consult placed to neurology for evaluation. (4) DVT prophylaxis Current Visit: Yes Status: Acute Plan to address problem: Patient placed on subcutaneous heparin. (5) Full code status Current Visit: Yes Status: Acute Plan to address problem: Patient is full code.
[2021-09-29] MEDS ORDERED: VANCOMYCIN 2,000 MG in SODIUM CHLORIDE 0.9% 500 ML 500 ML IV ONE (05:45)
[2021-09-29] MEDS ORDERED: VANCOMYCIN PHARMACY TO DOSE IV SCH (06:00)
[2021-09-29] MEDS ORDERED: ACYCLOVIR 1,000 MG in SODIUM CHLORIDE 0.9% 100 ML IV SCH (06:00)
[2021-09-29] MEDS: SENNOSIDES/DOCUSATE SODIUM 8.6/50 MG TAB FEEDTUBE SCH ×3 (06:01→22:59)
[2021-09-29] MEDS: FAMOTIDINE 20 MG/2 ML INJ IV SCH ×3 (06:01→22:54)
[2021-09-29] MEDS: HEPARIN 5,000 UNIT/1 ML VIAL SUB-Q SCH ×3 (06:23→22:54)
[2021-09-29] MEDS: cefTRIAXone/NS 2 GM/100 ML 2 GM/100 ML BAG IV SCH ×2 (06:24→18:18)
--- NOTE | 2021-09-29 07:26 | Consultation ---
History of Present Illness Consult date: 09/29/21 Requesting physician: SUMAN GOLDEN Reason for consult: other (Critical care) History of present illness: 31-year-old -[place] male with known history of seizure brought into the emergency room today by EMS with a complaint of possible seizures. Upon arrival in the emergency room patient was awake but was altered and nonverbal. Most of the history was obtained from EMS. EMS was said to have been called for possible seizure, Accu-Chek was said to be within normal limits however patient had a temperature of about 101F on the field. Patient was found to be quite combative upon arrival in the emergency room and was uncooperative for evaluation. Patient was subsequently intubated for airway protection. Work-up in the emergency room today, lab reveals a leukocytosis of 13.6, CO2 of 17, creatinine of 1.4. Urinalysis reveals turbid urine with 150 WBC. CSF shows WBC of 32, RBC 11, neutrophils 66, monocytes 18, monocyte 14, glucose 78, total protein 28. UDS was significant for marijuana and benzodiazepine. CT of the head, cervical spine and chest x-ray were unremarkable. Patient is being treated for possible meningitis/encephalitis. He was also placed on IV Keppra for seizure disorder. Past History Past Medical History: seizures Past Surgical History: Other Social history: other (Unobtainable unobtainable) Family history: other (Unobtainable) Medications and Allergies Allergies Allergy/AdvReac Type Severity Reaction Status Date / Time No Known Allergies Allergy Verified 09/28/21 19:35 Home Medications Medication Instructions Recorded Confirmed Last Taken Type levETIRAcetam [Keppra] 500 mg PO BID #60 [facility] [place] 08/18/21 Unknown Rx Active Meds: Active Medications Acetaminophen (Acetaminophen 325 Mg Tab) 650 mg PO Q6H PRN PRN Reason: Pain MILD(1-3)/Fever >100.5/DOE Famotidine (Famotidine 20 Mg/2 Ml Inj) 20 mg IV BID [facility] Last Admin: 09/29/21 06:01 Dose: 20 mg Documented by: Fentanyl (Fentanyl 100 Mcg/2 Ml Inj) 50 mcg IV Q10MIN PRN PRN Reason: ANALGESIA Heparin Sodium (Porcine) (Heparin 5,000 Unit/1 Ml Vial) 5,000 unit SUB-Q Q8HR [facility] Last Admin: 09/29/21 06:23 Dose: 5,000 unit Documented by: Hydrophilic Ointment (Lip Therapy Vaseline) 1 applic TP Q2HR PRN PRN Reason: Dry Lips Propofol (Diprivan 10 Mg/Ml) 1,000 mg in 100 mls @ 14.969 mls/hr IV TITR IZA; Protocol Last Titration: 09/29/21 06:22 Dose: Infused Documented by: Fentanyl Citrate (Fentanyl Drip Premix) 2,000 mcg in 100 mls @ 4.99 mls/hr IV TITR IZA; Protocol Last Admin: 09/29/21 00:13 Dose: 1 mcg/kg/hr, 4.99 mls/hr Documented by: Sodium Chloride (Nacl 0.9% 1000 Ml) 1,000 mls @ 125 mls/hr IV DIRECT IZA Ceftriaxone Sodium (Rocephin/Ns 2 Gm/100 Ml) 2 gm in 100 mls @ 200 mls/hr IV Q12H IZA; Protocol Last Admin: 09/29/21 06:24 Dose: 200 mls/hr Documented by: Levetiracetam 500 mg/ Dextrose 105 mls @ 400 mls/hr IV Q12HR IZA Acyclovir 1,000 mg/ Sodium (Chloride) 120 mls @ 100 mls/hr IV Q8HR IZA; Protocol Last Admin: 09/29/21 06:40 Dose: 100 mls/hr Documented by: Vancomycin HCl 1,500 mg/ (Sodium Chloride) 530 mls @ 333.333 mls/hr IV Q12H IZA Magnesium Hydroxide (Magnesium Hydroxide (Mom) Oral Liqd Udc) 30 ml PO Q4H PRN PRN Reason: Constipation Midazolam HCl (Midazolam 5 Mg/5 Ml Inj Mdv) 5 mg IV ONCE NR Stop: 09/30/21 00:59 Morphine Sulfate (Morphine 2 Mg/1 Ml Inj) 2 mg IV Q4H PRN PRN Reason: Pain, Moderate (4-6) Morphine Sulfate (Morphine 4 Mg/1 Ml Inj) 4 mg IV Q4H PRN PRN Reason: Pain , Severe (7-10) Multi-Ingred Cream/Lotion/Oil/Oint (Mineral Oil/Petrolatum, White Ophth Oint 3.5 Gm) 1 applic OU Q4HR PRN PRN Reason: Dry Eye(s) Senna/Docusate Sodium (Sennosides/Docusate Sodium 8.6/50 Mg Tab) 1 tab FEEDTUBE BID IZA Last Admin: 09/29/21 06:01 Dose: Not Given Documented by: Sodium Chloride (Sodium Chloride 0.9% 10 Ml Flush Syringe) 10 ml IV BID IZA Sodium Chloride (Sodium Chloride 0.9% 10 Ml Flush Syringe) 10 ml IV PRN PRN PRN Reason: LINE FLUSH Review of Systems ROS unobtainable: due to endotracheal tube, due to mental status Physical Examination Vital signs: Vital Signs Temp Pulse Resp BP Pulse Ox 101.3 F H 75 19 118/65 98 09/28/21 19:30 09/28/21 19:30 09/28/21 19:30 09/28/21 19:30 09/28/21 19:30 General appearance: no acute distress, other (orally intuabted, ETT at 22, ) Eyes: non-icteric ENT: oropharynx moist Neck: supple, no lymphadenopathy, no JVD Effort: normal Ascultation: Bilateral: clear, diminished breath sounds Cardiovascular: regular rate and rhythm, other (S1,S2) Gastrointestinal: normoactive bowel sounds, soft, non-tender, non-distended Integumentary: normal Extremities: no cyanosis, no edema pupils equal and round, unable to assess (sedated on Propofol) Results - Laboratory Findings CBC and BMP: 09/28/21 21:49 09/28/21 21:49 ABG ABG pH 7.421 (7.320-7.450) 09/29/21 00:57 POC ABG pCO2 28.7 mmHg (32.0-48.0) L 09/29/21 00:57 POC ABG pO2 228.9 mmHg (83-108) H 09/29/21 00:57 POC ABG HCO3 18.2 09/29/21 00:57 ABG O2 Saturation 99.2 (0-100) 09/29/21 00:57 PT/INR, D-dimer PT 13.1 Sec. (12.2-14.9) 09/28/21 21:49 INR 0.89 (0.87-1.13) 09/28/21 21:49 Abnormal lab findings: Abnormal Labs 09/28/21 09/28/21 09/28/21 21:49 21:49 21:49 WBC 13.6 H RBC 5.32 H Hct 46.1 H Seg Neuts % (Manual) 89.0 H Lymphocytes % (Manual) 6.0 L Seg Neutrophils # Man 12.1 H Lymphocytes # (Manual) 0.8 L APTT POC ABG pCO2 POC ABG pO2 ABG Oxyhemoglobin ABG Chloride ABG Glucose Carboxyhemoglobin Carbon Dioxide 17 L Creatinine 1.4 H Glucose 103 H Total Creatine Kinase 962 H Arterial Blood Glucose Urine WBC (Auto) Salicylates < 0.3 L Acetaminophen 09/28/21 09/28/21 09/29/21 21:49 21:49 00:57 WBC RBC Hct Seg Neuts % (Manual) Lymphocytes % (Manual) Seg Neutrophils # Man Lymphocytes # (Manual) APTT 22.1 L POC ABG pCO2 28.7 L POC ABG pO2 228.9 H ABG Oxyhemoglobin 98.9 H ABG Chloride 109.0 H ABG Glucose 105 H Carboxyhemoglobin 0 L Carbon Dioxide Creatinine Glucose Total Creatine Kinase Arterial Blood Glucose 105 H Urine WBC (Auto) Salicylates Acetaminophen 5.0 L 09/29/21 Unknown WBC RBC Hct Seg Neuts % (Manual) Lymphocytes % (Manual) Seg Neutrophils # Man Lymphocytes # (Manual) APTT POC ABG pCO2 POC ABG pO2 ABG Oxyhemoglobin ABG Chloride ABG Glucose Carboxyhemoglobin Carbon Dioxide Creatinine Glucose Total Creatine Kinase Arterial Blood Glucose Urine WBC (Auto) 150.0 H Salicylates Acetaminophen - Diagnostic Findings Chest x-ray: image reviewed (No acute infiltrates) Assessment and Plan Acute hypoxemic resp failure on MVS Fevers, possible meningitis/encephalaitis Acute renal failure Metabolic acidosis -Continue with empiric antibiotics, for meningitis. De-escalate based on culture data and clinical response - Wean supplemental oxygen to keep SpO2 88-90% - VAP bundle addressed, aspiration precautions HOB >30 -Lung protective strategies -Daily assessment for readiness to wean, daily SAT and SBT -Bronchodilators with pulmonary hygiene per RT - continue accuchecks with glycemic control per SSI (While critically ill target blood glucose of 140-180 mg/dL; avoid hypoglycemia) - Propofol for target RASS 0 to -1 - avoid nephrotoxins, renally dose all medications - prn analgesia per CPOT score - address enteral nutritional support tomorrow. Will start trophic feeding - Stress ulcer prophylaxis- on Famotidine - VTE prophylaxis - continue mobility, off loading, frequent turning per facility protocol for pressure ulcer prevention - Monitor hemodynamics closely - continue other care per attending / other consultants -Follow up brain MRI CONDITION: CRITICAL PROGNOSIS: GUARDED CODE STATUS: FULL CODE The high probability of a clinically significant, sudden or life-threatening deterioration of the [respiratory, & neurologic] system(s) required my full and direct attention, intervention and personal management. The aggregate critical care time was [35 minutes] minutes without overlap. Time includes spent on; [x] Data Review and interpretation [x] Patient assessment and monitoring of vital signs [x] Documentation [x] Medication orders and management
--- NOTE | 2021-09-29 07:48 | Consultation ---
History of Present Illness Consult date: 09/29/21 Reason for Consult: Seizure,leukocytosis, sp LP History of present illness: Altered mental status History of present illness: 31-year-old -[place] male with known history of seizure brought into the emergency room today by EMS with a complaint of possible seizures. Upon arrival in the emergency room patient was awake but was altered and nonverbal. Most of the history was obtained from EMS. EMS was said to have been called for possible seizure, Accu-Chek was said to be within normal limits however patient had a temperature of about 101F on the field. Patient was found to be quite combative upon arrival in the emergency room and was uncooperative for evaluation. Patient was subsequently intubated for airway protection. Work-up in the emergency room today, lab reveals a leukocytosis of 13.6, CO2 of 17, creatinine of 1.4. Urinalysis reveals turbid urine with 150 WBC. CSF shows WBC of 32, RBC 11, neutrophils 66, monocytes 18, monocyte 14, glucose 78, total protein 28. UDS was significant for marijuana and benzodiazepine. CT of the head, cervical spine and chest x-ray were unremarkable. pt. had LP done with WBCs#32 and RBCs#11 protein#28 and glucose#78 WNL Gram stain is unremarkable Patient is being treated for possible meningitis/encephalitis. He was also placed on IV Keppra for seizure disorder. he is sedated with propofol and is weanned of fentanyl. Past History Past Medical History: seizures Past Surgical History: Other Social history: other (Unobtainable unobtainable) Family history: other (Unobtainable) Medications and Allergies Allergies Allergy/AdvReac Type Severity Reaction Status Date / Time No Known Allergies Allergy Verified 09/28/21 19:35 Home Medications Medication Instructions Recorded Confirmed Last Taken Type levETIRAcetam [Keppra] 500 mg PO BID #60 udc 08/18/21 Unknown Rx Active Meds: Active Medications Acetaminophen (Acetaminophen 325 Mg Tab) 650 mg PO Q6H PRN PRN Reason: Pain MILD(1-3)/Fever >100.5/DOE Famotidine (Famotidine 20 Mg/2 Ml Inj) 20 mg IV BID IZA Fentanyl (Fentanyl 100 Mcg/2 Ml Inj) 50 mcg IV Q10MIN PRN PRN Reason: ANALGESIA Hydrophilic Ointment (Lip Therapy Vaseline) 1 applic TP Q2HR PRN PRN Reason: Dry Lips Propofol (Diprivan 10 Mg/Ml) 1,000 mg in 100 mls @ 14.969 mls/hr IV TITR IZA; Protocol Last Admin: 09/28/21 22:25 Dose: 25 mcg/kg/min, 14.969 mls/hr Documented by: Fentanyl Citrate (Fentanyl Drip Premix) 2,000 mcg in 100 mls @ 4.99 mls/hr IV TITR IZA; Protocol Sodium Chloride (Nacl 0.9% 1000 Ml) 1,000 mls @ 125 mls/hr IV DIRECT IZA Magnesium Hydroxide (Magnesium Hydroxide (Mom) Oral Liqd Udc) 30 ml PO Q4H PRN PRN Reason: Constipation Midazolam HCl (Midazolam 5 Mg/5 Ml Inj Mdv) 5 mg IV ONCE NR Stop: 09/30/21 00:59 Morphine Sulfate (Morphine 2 Mg/1 Ml Inj) 2 mg IV Q4H PRN PRN Reason: Pain, Moderate (4-6) Morphine Sulfate (Morphine 4 Mg/1 Ml Inj) 4 mg IV Q4H PRN PRN Reason: Pain , Severe (7-10) Multi-Ingred Cream/Lotion/Oil/Oint (Mineral Oil/Petrolatum, White Ophth Oint 3.5 Gm) 1 applic OU Q4HR PRN PRN Reason: Dry Eye(s) Senna/Docusate Sodium (Sennosides/Docusate Sodium 8.6/50 Mg Tab) 1 tab FEEDTUBE BID IZA Sodium Chloride (Sodium Chloride 0.9% 10 Ml Flush Syringe) 10 ml IV BID IZA Sodium Chloride (Sodium Chloride 0.9% 10 Ml Flush Syringe) 10 ml IV PRN PRN PRN Reason: LINE FLUSH Review of Systems ROS unobtainable: due to endotracheal tube Exam - Constitutional Vitals: Temp Pulse Resp BP Pulse Ox 97.9 F 73 24 105/62 100 09/29/21 02:00 09/29/21 02:15 09/29/21 02:15 09/29/21 02:15 09/29/21 02:15 General appearance: Present: no acute distress, well-nourished - EENT Eyes: Present: PERRL, EOM intact. Absent: scleral icterus ENT: hearing intact, clear oral mucosa, dentition normal - Neck Neck: Present: supple, normal ROM - Respiratory Respiratory effort: normal Respiratory: bilateral: CTA - Cardiovascular Rhythm: regular Heart Sounds: Present: S1 & S2. Absent: gallop, systolic murmur, diastolic murmur, rub, click - Extremities Extremities: no ischemia, pulses intact, pulses symmetrical, No edema, normal temperature, normal color, Full ROM - Abdominal General gastrointestinal: Present: soft, non-tender, non-distended, normal bowel sounds. Absent: mass - Integumentary Integumentary: Present: clear, warm, dry. Absent: rash - Musculoskeletal Musculoskeletal: strength equal bilaterally - Psychiatric Psychiatric: cooperative - Neurologic Neurologic: CNII-XII intact, no focal deficits, moves all extremities Results - Labs CBC & Chem 7: 09/28/21 21:49 09/28/21 21:49 Labs: Abnormal lab results 09/28/21 09/28/21 09/28/21 Range/Units 21:49 21:49 21:49 WBC 13.6 H (4.5-11.0) K/mm3 RBC 5.32 H (3.65-5.03) M/mm3 Hct 46.1 H (35.5-45.6) % Seg Neuts % (Manual) 89.0 H (40.0-70.0) % Lymphocytes % (Manual) 6.0 L (13.4-35.0) % Seg Neutrophils # Man 12.1 H (1.8-7.7) K/mm3 Lymphocytes # (Manual) 0.8 L (1.2-5.4) K/mm3 APTT (24.2-36.6) Sec. POC ABG pCO2 (32.0-48.0) mmHg POC ABG pO2 (83-108) mmHg ABG Oxyhemoglobin (94-98) ABG Chloride (98-107) mmol/L ABG Glucose (65-95) mg/dL Carboxyhemoglobin (0.5-1.5) Carbon Dioxide 17 L (22-30) mmol/L Creatinine 1.4 H (0.8-1.3) mg/dL Glucose 103 H (75-100) mg/dL Total Creatine Kinase 962 H (55-170) units/L Arterial Blood Glucose (65-95) mg/dL Urine WBC (Auto) (0.0-6.0) /HPF Salicylates < 0.3 L (2.8-20.0) mg/dL Acetaminophen (10.0-30.0) ug/mL 09/28/21 09/28/21 09/29/21 Range/Units 21:49 21:49 00:57 WBC (4.5-11.0) K/mm3 RBC (3.65-5.03) M/mm3 Hct (35.5-45.6) % Seg Neuts % (Manual) (40.0-70.0) % Lymphocytes % (Manual) (13.4-35.0) % Seg Neutrophils # Man (1.8-7.7) K/mm3 Lymphocytes # (Manual) (1.2-5.4) K/mm3 APTT 22.1 L (24.2-36.6) Sec. POC ABG pCO2 28.7 L (32.0-48.0) mmHg POC ABG pO2 228.9 H (83-108) mmHg ABG Oxyhemoglobin 98.9 H (94-98) ABG Chloride 109.0 H (98-107) mmol/L ABG Glucose 105 H (65-95) mg/dL Carboxyhemoglobin 0 L (0.5-1.5) Carbon Dioxide (22-30) mmol/L Creatinine (0.8-1.3) mg/dL Glucose (75-100) mg/dL Total Creatine Kinase (55-170) units/L Arterial Blood Glucose 105 H (65-95) mg/dL Urine WBC (Auto) (0.0-6.0) /HPF Salicylates (2.8-20.0) mg/dL Acetaminophen 5.0 L (10.0-30.0) ug/mL 09/29/21 Range/Units Unknown WBC (4.5-11.0) K/mm3 RBC (3.65-5.03) M/mm3 Hct (35.5-45.6) % Seg Neuts % (Manual) (40.0-70.0) % Lymphocytes % (Manual) (13.4-35.0) % Seg Neutrophils # Man (1.8-7.7) K/mm3 Lymphocytes # (Manual) (1.2-5.4) K/mm3 APTT (24.2-36.6) Sec. POC ABG pCO2 (32.0-48.0) mmHg POC ABG pO2 (83-108) mmHg ABG Oxyhemoglobin (94-98) ABG Chloride (98-107) mmol/L ABG Glucose (65-95) mg/dL Carboxyhemoglobin (0.5-1.5) Carbon Dioxide (22-30) mmol/L Creatinine (0.8-1.3) mg/dL Glucose (75-100) mg/dL Total Creatine Kinase (55-170) units/L Arterial Blood Glucose (65-95) mg/dL Urine WBC (Auto) 150.0 H (0.0-6.0) /HPF Salicylates (2.8-20.0) mg/dL Acetaminophen (10.0-30.0) ug/mL Past History Past Medical History: seizures Past Surgical History: Other Social history: other (Unobtainable unobtainable) Family history: other (Unobtainable) Medications and Allergies Allergies Allergy/AdvReac Type Severity Reaction Status Date / Time No Known Allergies Allergy Verified 09/28/21 19:35 Home Medications Medication Instructions Recorded Confirmed Last Taken Type levETIRAcetam [Keppra] 500 mg PO BID #60 [facility] [place] 08/18/21 Unknown Rx Active Meds: Active Medications Acetaminophen (Acetaminophen 325 Mg Tab) 650 mg PO Q6H PRN PRN Reason: Pain MILD(1-3)/Fever >100.5/DOE Famotidine (Famotidine 20 Mg/2 Ml Inj) 20 mg IV BID [facility] Last Admin: 09/29/21 06:01 Dose: 20 mg Documented by: Fentanyl (Fentanyl 100 Mcg/2 Ml Inj) 50 mcg IV Q10MIN PRN PRN Reason: ANALGESIA Heparin Sodium (Porcine) (Heparin 5,000 Unit/1 Ml Vial) 5,000 unit SUB-Q Q8HR [facility] Last Admin: 09/29/21 06:23 Dose: 5,000 unit Documented by: Hydrophilic Ointment (Lip Therapy Vaseline) 1 applic TP Q2HR PRN PRN Reason: Dry Lips Propofol (Diprivan 10 Mg/Ml) 1,000 mg in 100 mls @ 14.969 mls/hr IV TITR IZA; Protocol Last Titration: 09/29/21 06:22 Dose: Infused Documented by: Fentanyl Citrate (Fentanyl Drip Premix) 2,000 mcg in 100 mls @ 4.99 mls/hr IV TITR IZA; Protocol Last Admin: 09/29/21 00:13 Dose: 1 mcg/kg/hr, 4.99 mls/hr Documented by: Sodium Chloride (Nacl 0.9% 1000 Ml) 1,000 mls @ 125 mls/hr IV DIRECT IZA Ceftriaxone Sodium (Rocephin/Ns 2 Gm/100 Ml) 2 gm in 100 mls @ 200 mls/hr IV Q12H IZA; Protocol Last Admin: 09/29/21 06:24 Dose: 200 mls/hr Documented by: Levetiracetam 500 mg/ Dextrose 105 mls @ 400 mls/hr IV Q12HR IZA Acyclovir 1,000 mg/ Sodium (Chloride) 120 mls @ 100 mls/hr IV Q8HR IZA; Protocol Last Admin: 09/29/21 06:40 Dose: 100 mls/hr Documented by: Vancomycin HCl 1,500 mg/ (Sodium Chloride) 530 mls @ 333.333 mls/hr IV Q12H IZA Magnesium Hydroxide (Magnesium Hydroxide (Mom) Oral Liqd Udc) 30 ml PO Q4H PRN PRN Reason: Constipation Midazolam HCl (Midazolam 5 Mg/5 Ml Inj Mdv) 5 mg IV ONCE NR Stop: 09/30/21 00:59 Morphine Sulfate (Morphine 2 Mg/1 Ml Inj) 2 mg IV Q4H PRN PRN Reason: Pain, Moderate (4-6) Morphine Sulfate (Morphine 4 Mg/1 Ml Inj) 4 mg IV Q4H PRN PRN Reason: Pain , Severe (7-10) Multi-Ingred Cream/Lotion/Oil/Oint (Mineral Oil/Petrolatum, White Ophth Oint 3.5 Gm) 1 applic OU Q4HR PRN PRN Reason: Dry Eye(s) Senna/Docusate Sodium (Sennosides/Docusate Sodium 8.6/50 Mg Tab) 1 tab FEEDTUBE BID [facility] Last Admin: 09/29/21 06:01 Dose: Not Given Documented by: Sodium Chloride (Sodium Chloride 0.9% 10 Ml Flush Syringe) 10 ml IV BID [facility] Sodium Chloride (Sodium Chloride 0.9% 10 Ml Flush Syringe) 10 ml IV PRN PRN PRN Reason: LINE FLUSH Physical Examination - Vital Signs Vital Signs: Vital Signs Temp Pulse Resp BP Pulse Ox 101.3 F H 75 19 118/65 98 09/28/21 19:30 09/28/21 19:30 09/28/21 19:30 09/28/21 19:30 09/28/21 19:30 - Constitutional General appearance: comfortable - EENT EENT: Present: PERRL, mucous membranes moist - Respiratory Respiratory: Present: chest non-tender, lungs clear, rhonchi - Cardiovascular Cardiovascular: Present: regular rate, normal S1, normal S2 Extremities: Present: no peripheral edema bilatateraly, no clubbing, cyanosis - Gastrointestinal Gastrointestinal: Present: normoactive bowel sounds - Integumentary Integumentary: Present: normal - Neurologic Cranial nerve examination: PERRL, EOMI, intact Speech examination: other (intubated and sedated) Detailed motor examination: other (no movment to stimuli sedated. no seizure is reported) Results - Laboratory Findings CBC and BMP: 09/28/21 21:49 09/28/21 21:49 Abnormal Lab Findings: Abnormal Labs 09/28/21 09/28/21 09/28/21 21:49 21:49 21:49 WBC 13.6 H RBC 5.32 H Hct 46.1 H Seg Neuts % (Manual) 89.0 H Lymphocytes % (Manual) 6.0 L Seg Neutrophils # Man 12.1 H Lymphocytes # (Manual) 0.8 L APTT POC ABG pCO2 POC ABG pO2 ABG Oxyhemoglobin ABG Chloride ABG Glucose Carboxyhemoglobin Carbon Dioxide 17 L Creatinine 1.4 H Glucose 103 H Total Creatine Kinase 962 H Arterial Blood Glucose Urine WBC (Auto) Salicylates < 0.3 L Acetaminophen 09/28/21 09/28/21 09/29/21 21:49 21:49 00:57 WBC RBC Hct Seg Neuts % (Manual) Lymphocytes % (Manual) Seg Neutrophils # Man Lymphocytes # (Manual) APTT 22.1 L POC ABG pCO2 28.7 L POC ABG pO2 228.9 H ABG Oxyhemoglobin 98.9 H ABG Chloride 109.0 H ABG Glucose 105 H Carboxyhemoglobin 0 L Carbon Dioxide Creatinine Glucose Total Creatine Kinase Arterial Blood Glucose 105 H Urine WBC (Auto) Salicylates Acetaminophen 5.0 L 09/29/21 Unknown WBC RBC Hct Seg Neuts % (Manual) Lymphocytes % (Manual) Seg Neutrophils # Man Lymphocytes # (Manual) APTT POC ABG pCO2 POC ABG pO2 ABG Oxyhemoglobin ABG Chloride ABG Glucose Carboxyhemoglobin Carbon Dioxide Creatinine Glucose Total Creatine Kinase Arterial Blood Glucose Urine WBC (Auto) 150.0 H Salicylates Acetaminophen Assessment and Plan Assessment and Plan 31-year-old -[place] male with known history of seizure brought into the emergency room today by EMS with a complaint of possible seizures. Upon arrival in the emergency room patient was awake but was altered and nonverbal. Most of the history was obtained from EMS. EMS was said to have been called for possible seizure, Accu-Chek was said to be within normal limits however patient had a temperature of about 101F on the field. -LP is done and started on keppra and broad spectrum abs - Patient Problems # Acute encephalopathy Possibly secondary to seizure disorder/meningitis. Patient currently admitted into the intensive care unit We will continue on empiric IV antibiotics and IV fluid. We will monitor mental status. # Acute febrile illness Current Visit: Yes Status: Acute Plan to address problem: Possibly secondary to underlying meningitis/encephalitis and or UTI We will continue on empiric IV antibiotics. Will await culture results. # History of seizure We will place on seizure precautions. Patient started on IV Keppra. EEG is pending MRI with gd is pending # DVT prophylaxis Patient placed on subcutaneous heparin. # Full code status Patient is full code. Plan 1- As above 2- seizure precaution 3- EEG and Brain MRI are pending 4- Mantain Keppra 5- maintain Abs until result of LP c/s is back will follow
[2021-09-29] MEDS ORDERED: VANCOMYCIN 1,500 MG in SODIUM CHLORIDE 0.9% 500 ML 500 ML IV SCH (10:00)
[2021-09-29] MEDS: levETIRAcetam 500 MG in DEXTROSE 5% IN WATER 100 ML IV SCH ×2 (10:29→22:54)
[2021-09-29] MEDS: VANCOMYCIN 1,500 MG in SODIUM CHLORIDE 0.9% 500 ML 500 ML IV SCH (13:00)
--- NOTE | 2021-09-29 13:21 | Event Note ---
Date: 09/29/21 Patient seen in emergency department. Currently intubated on MV. Fentanyl and propofol running at 1mcg/kg/hr and 30mcg/kg/min respectively. Neurology evaluated patient at the bedside. Awaiting MRI. We will continue with current plan as stated in H&P.
[2021-09-29] MEDS: ACYCLOVIR 800 MG in SODIUM CHLORIDE 0.9% 100 ML IV SCH ×2 (15:52→22:54)
--- NOTE | 2021-09-29 16:09 | Consultation ---
History of Present Illness - Reason for Consult Consult date: 09/29/21 - History of Present Illness 31-year-old man past medical history of seizures presented to hospital with seizures. On presentation the hospital he was with altered mental status and nonverbal at that time. He was found to be febrile in the field by EMS. He was intubated for airway protection. There was concern for meningitis/encephalitis, as such an LP was obtained. Febrile to 1-1.3 with a white count of 13.6. Normal GFR. Cultures no growth so far. Imaging personally reviewed: Chest x-ray: No acute abnormality. Past History Past Medical History: seizures Past Surgical History: Other Social history: other (Unobtainable unobtainable) Family history: other (Unobtainable) Medications and Allergies Allergies Allergy/AdvReac Type Severity Reaction Status Date / Time No Known Allergies Allergy Verified 09/28/21 19:35 Home Medications Medication Instructions Recorded Confirmed Last Taken Type levETIRAcetam [Keppra] 500 mg PO BID #60 udc 08/18/21 Unknown Rx Active Meds: Active Medications Acetaminophen (Acetaminophen 325 Mg Tab) 650 mg PO Q6H PRN PRN Reason: Pain MILD(1-3)/Fever >100.5/DOE Famotidine (Famotidine 20 Mg/2 Ml Inj) 20 mg IV BID IZA Last Admin: 09/29/21 10:29 Dose: 20 mg Documented by: Fentanyl (Fentanyl 100 Mcg/2 Ml Inj) 50 mcg IV Q10MIN PRN PRN Reason: ANALGESIA Heparin Sodium (Porcine) (Heparin 5,000 Unit/1 Ml Vial) 5,000 unit SUB-Q Q8HR IZA Last Admin: 09/29/21 13:55 Dose: 5,000 unit Documented by: Hydrophilic Ointment (Lip Therapy Vaseline) 1 applic TP Q2HR PRN PRN Reason: Dry Lips Propofol (Diprivan 10 Mg/Ml) 1,000 mg in 100 mls @ 14.969 mls/hr IV TITR IZA; Protocol Last Admin: 09/29/21 13:53 Dose: 35 mcg/kg/min, 20.956 mls/hr Documented by: Fentanyl Citrate (Fentanyl Drip Premix) 2,000 mcg in 100 mls @ 4.99 mls/hr IV TITR IZA; Protocol Last Admin: 09/29/21 00:13 Dose: 1 mcg/kg/hr, 4.99 mls/hr Documented by: Sodium Chloride (Nacl 0.9% 1000 Ml) 1,000 mls @ 125 mls/hr IV DIRECT IZA Ceftriaxone Sodium (Rocephin/Ns 2 Gm/100 Ml) 2 gm in 100 mls @ 200 mls/hr IV Q12H IZA; Protocol Last Admin: 09/29/21 06:24 Dose: 200 mls/hr Documented by: Levetiracetam 500 mg/ Dextrose 105 mls @ 400 mls/hr IV Q12HR [facility] Last Admin: 09/29/21 10:29 Dose: 400 mls/hr Documented by: Vancomycin HCl 1,500 mg/ (Sodium Chloride) 530 mls @ 333.333 mls/hr IV Q12H [facility] Last Admin: 09/29/21 13:00 Dose: 333.333 mls/hr Documented by: Acyclovir 800 mg/ Sodium (Chloride) 116 mls @ 100 mls/hr IV Q8HR IZA; Protocol Magnesium Hydroxide (Magnesium Hydroxide (Mom) Oral Liqd Udc) 30 ml PO Q4H PRN PRN Reason: Constipation Midazolam HCl (Midazolam 5 Mg/5 Ml Inj Mdv) 5 mg IV ONCE NR Stop: 09/30/21 00:59 Morphine Sulfate (Morphine 2 Mg/1 Ml Inj) 2 mg IV Q4H PRN PRN Reason: Pain, Moderate (4-6) Morphine Sulfate (Morphine 4 Mg/1 Ml Inj) 4 mg IV Q4H PRN PRN Reason: Pain , Severe (7-10) Multi-Ingred Cream/Lotion/Oil/Oint (Mineral Oil/Petrolatum, White Ophth Oint 3.5 Gm) 1 applic OU Q4HR PRN PRN Reason: Dry Eye(s) Senna/Docusate Sodium (Sennosides/Docusate Sodium 8.6/50 Mg Tab) 1 tab FEEDTUBE BID [facility] Last Admin: 09/29/21 10:29 Dose: Not Given Documented by: Sodium Chloride (Sodium Chloride 0.9% 10 Ml Flush Syringe) 10 ml IV BID [facility] Last Admin: 09/29/21 10:29 Dose: 10 ml Documented by: Sodium Chloride (Sodium Chloride 0.9% 10 Ml Flush Syringe) 10 ml IV PRN PRN PRN Reason: LINE FLUSH Review of Systems ROS unobtainable: due to endotracheal tube Physical Examination - Physical Exam Narrative exam: Physical Exam: Constitutional: Intubated, sedated Head, Ears, Nose: Normocephalic, atraumatic. External ears, nose normal Eyes: Conjunctivae/corneas clear. No icterus. No ptosis. Neck: Supple, no meningeal signs Oral: ETT Cardiovascular: S1, S2 normal. Respiratory: Good air entry, clear to auscultation bilaterally GI: Soft, non-tender; bowel sounds normal. No peritoneal signs. Musculoskeletal: No pedal edema, no cyanosis. Skin: No rash or abscess Hem/Lymphatic: No palpable cervical or supraclavicular nodes. No lymphangitis Psych: Sedated Neurological: Sedated - Constitutional Vitals: Vital Signs Temp Pulse Resp BP Pulse Ox 97.1 F L 76 18 109/64 100 09/29/21 12:00 09/29/21 15:01 09/29/21 15:01 09/29/21 15:01 09/29/21 15:01 Temperature -Last 24 Hours Temperature 97.1 F Temperature 97.2 F Temperature 97.9 F Temperature 101.3 F Results - Labs CBC & Chem 7: 09/28/21 21:49 09/28/21 21:49 Labs: Abnormal lab results 09/28/21 09/28/21 09/28/21 Range/Units 21:49 21:49 21:49 WBC 13.6 H (4.5-11.0) K/mm3 RBC 5.32 H (3.65-5.03) M/mm3 Hct 46.1 H (35.5-45.6) % Seg Neuts % (Manual) 89.0 H (40.0-70.0) % Lymphocytes % (Manual) 6.0 L (13.4-35.0) % Seg Neutrophils # Man 12.1 H (1.8-7.7) K/mm3 Lymphocytes # (Manual) 0.8 L (1.2-5.4) K/mm3 APTT (24.2-36.6) Sec. POC ABG pCO2 (32.0-48.0) mmHg POC ABG pO2 (83-108) mmHg ABG Oxyhemoglobin (94-98) ABG Chloride (98-107) mmol/L ABG Glucose (65-95) mg/dL Carboxyhemoglobin (0.5-1.5) Carbon Dioxide 17 L (22-30) mmol/L Creatinine 1.4 H (0.8-1.3) mg/dL Glucose 103 H (75-100) mg/dL Total Creatine Kinase 962 H (55-170) units/L Arterial Blood Glucose (65-95) mg/dL Urine WBC (Auto) (0.0-6.0) /HPF Salicylates < 0.3 L (2.8-20.0) mg/dL Acetaminophen (10.0-30.0) ug/mL 09/28/21 09/28/21 09/29/21 Range/Units 21:49 21:49 00:57 WBC (4.5-11.0) K/mm3 RBC (3.65-5.03) M/mm3 Hct (35.5-45.6) % Seg Neuts % (Manual) (40.0-70.0) % Lymphocytes % (Manual) (13.4-35.0) % Seg Neutrophils # Man (1.8-7.7) K/mm3 Lymphocytes # (Manual) (1.2-5.4) K/mm3 APTT 22.1 L (24.2-36.6) Sec. POC ABG pCO2 28.7 L (32.0-48.0) mmHg POC ABG pO2 228.9 H (83-108) mmHg ABG Oxyhemoglobin 98.9 H (94-98) ABG Chloride 109.0 H (98-107) mmol/L ABG Glucose 105 H (65-95) mg/dL Carboxyhemoglobin 0 L (0.5-1.5) Carbon Dioxide (22-30) mmol/L Creatinine (0.8-1.3) mg/dL Glucose (75-100) mg/dL Total Creatine Kinase (55-170) units/L Arterial Blood Glucose 105 H (65-95) mg/dL Urine WBC (Auto) (0.0-6.0) /HPF Salicylates (2.8-20.0) mg/dL Acetaminophen 5.0 L (10.0-30.0) ug/mL 09/29/21 Range/Units Unknown WBC (4.5-11.0) K/mm3 RBC (3.65-5.03) M/mm3 Hct (35.5-45.6) % Seg Neuts % (Manual) (40.0-70.0) % Lymphocytes % (Manual) (13.4-35.0) % Seg Neutrophils # Man (1.8-7.7) K/mm3 Lymphocytes # (Manual) (1.2-5.4) K/mm3 APTT (24.2-36.6) Sec. POC ABG pCO2 (32.0-48.0) mmHg POC ABG pO2 (83-108) mmHg ABG Oxyhemoglobin (94-98) ABG Chloride (98-107) mmol/L ABG Glucose (65-95) mg/dL Carboxyhemoglobin (0.5-1.5) Carbon Dioxide (22-30) mmol/L Creatinine (0.8-1.3) mg/dL Glucose (75-100) mg/dL Total Creatine Kinase (55-170) units/L Arterial Blood Glucose (65-95) mg/dL Urine WBC (Auto) 150.0 H (0.0-6.0) /HPF Salicylates (2.8-20.0) mg/dL Acetaminophen (10.0-30.0) ug/mL Assessment and Plan Cultures: Blood culture no growth so far CSF culture no growth so far Sputum culture no growth so far A/P: 31-year-old man past medical history known seizures admitted with seizures, fever #Acute sepsis: With fevers and leukocytosis. Possibly secondary to meningitis/encephalitis. #Seizures: Questionable meningitis/encephalitis. CSF with elevated white count, however low neutrophils and normal glucose. As such unlikely bacterial meningitis at this time. #MICHAEL: renally dose medications Recs: -Follow-up brain MRI -Continue vancomycin, ceftriaxone, acyclovir pending CSF cultures and MRI. Thank you for the consult, we will continue to follow. Burak Cabral MD [facility] O: [phone] F: [phone]
[2021-09-30] MEDS ORDERED: MIDAZOLAM 5 MG/5 ML INJ MDV IV ONE (00:24)
[2021-09-30] MEDS ORDERED: ROCURONIUM 50 MG/5 ML INJ IV ONE (00:24)
[2021-09-30] MEDS ORDERED: ETOMIDATE 20 MG/10 ML INJ IV ONE (00:24)
[2021-09-30] MEDS: VANCOMYCIN 1,500 MG in SODIUM CHLORIDE 0.9% 500 ML 500 ML IV SCH ×2 (02:19→11:57)
--- NOTE | 2021-09-30 04:00 | XRay Report ---
CHEST 1 VIEW 09/30/2021 3:45 AM INDICATION / CLINICAL INFORMATION: Follow-up respiratory failure. COMPARISON: 09/28/21. FINDINGS: SUPPORT DEVICES: The position of the endotracheal tube has not changed significantly. HEART / MEDIASTINUM: The heart size and pulmonary vasculature are normal. LUNGS / PLEURA: Mild patchy parenchymal disease in the left lower lung is new. The right lung is juliana r. No pneumothorax. ADDITIONAL FINDINGS: No significant additional findings. IMPRESSION: Interval development of mild patchy pneumonia in the left lower lung. Signer Name: Cheo Darling MD Signed: 09/30/2021 3:56 AM Workstation Name: [id number]
[2021-09-30 04:35] LABS: ABG Base Excess -3.3 mmol/L (-2.0-3.0); ABG HCO3 20.4 mmol/L (20.0-26.0); ABG Methemoglobin 0.5 % (0.0-1.5); ABG Oxygen Saturation 98.6 % (95.0-99.0); ABG PCO2 32.8 mm Hg; ABG PH 7.412 pH Units (7.350-7.450); ABG PO2 130.5 mm Hg (80.0-90.0)
[2021-09-30 04:54] LABS: Basophils % (Auto) 0.3 % (0.0-1.8); Hematocrit 43.2 % (35.5-45.6); Hemoglobin 14.1 gm/dl (11.8-15.2); Lymphocytes # (Auto) 1.5 K/mm3 (1.2-5.4); Lymphocytes % (Auto) 14.9 % (13.4-35.0); Mean Corpuscular HGB Conc 33 % (32-34); Mean Corpuscular Volume 88 fl (84-94); Monocytes # (Auto) 0.9 K/mm3 (0.0-0.8); Monocytes % (Auto) 9.2 % (0.0-7.3); Platelet Count 182 K/mm3 (140-440); Red Cell Distribution Width 14.4 % (13.2-15.2)
[2021-09-30 05:12] LABS: BUN/Creatinine Ratio 14; Blood Urea Nitrogen 14 mg/dL (9-20); Calcium 8.5 mg/dL (8.4-10.2); Hemolysis Index 39
[2021-09-30] MEDS: cefTRIAXone/NS 2 GM/100 ML 2 GM/100 ML BAG IV SCH (05:17)
[2021-09-30] MEDS: ACYCLOVIR 800 MG in SODIUM CHLORIDE 0.9% 100 ML IV SCH ×3 (05:18→22:33)
[2021-09-30] MEDS ORDERED: MORPHINE 4 MG/1 ML INJ IV ONE (05:25)
[2021-09-30] MEDS: HEPARIN 5,000 UNIT/1 ML VIAL SUB-Q SCH ×3 (05:26→21:51)
[2021-09-30] MEDS ORDERED: oxyCODONE 5 MG TAB PO PRN (08:47)
[2021-09-30] MEDS: SENNOSIDES/DOCUSATE SODIUM 8.6/50 MG TAB FEEDTUBE SCH (09:27)
[2021-09-30] MEDS: FAMOTIDINE 20 MG TAB PO SCH (09:27)
[2021-09-30] MEDS: levETIRAcetam 500 MG in DEXTROSE 5% IN WATER 100 ML IV SCH (09:32)
--- NOTE | 2021-09-30 11:09 | Progress Note ---
Assessment and Plan Assessment and Plan 31-year-old -[place] male with known history of seizure brought into the emergency room today by EMS with a complaint of possible seizures. Upon arrival in the emergency room patient was awake but was altered and nonverbal. Most of the history was obtained from EMS. EMS was said to have been called for possible seizure, Accu-Chek was said to be within normal limits however patient had a temperature of about 101F on the field. -LP is done and started on keppra and broad spectrum abs - Patient Problems # Acute encephalopathy Possibly secondary to seizure disorder/meningitis. Patient currently admitted into the intensive care unit We will continue on empiric IV antibiotics and IV fluid. We will monitor mental status. # Acute febrile illness Current Visit: Yes Status: Acute Plan to address problem: Possibly secondary to underlying meningitis/encephalitis and or UTI We will continue on empiric IV antibiotics. Will await culture results. # History of seizure We will place on seizure precautions. Patient started on IV Keppra. EEG is pending MRI with gd is pending # DVT prophylaxis Patient placed on subcutaneous heparin. # Full code status Patient is full code. Plan 1- As above 2- seizure precaution 3- EEG and Brain MRI are pending 4- Mantain Keppra 5- maintain Abs until result of LP c/s is back 6- no driving , no drinking will follow Subjective Date of service: 09/30/21 Principal diagnosis: seizure Interval history: pt. is alert extubated responsive he is oriented to place not date he recall having seizure according to pt. he is with hx of seizure for few years since he started taking cocaine According to him he stopped using cocaine but had significant problem with daily heavy alcohol intake According to pt. he average 3-4 seizures a year , he continues to drive and drink . MRI is pending as well as EEG Objective - Vital Sign Vital Signs - 12hr 09/29/21 09/30/21 09/30/21 23:52 00:00 00:40 Temperature 97.8 F Pulse Rate 71 73 Respiratory 18 Rate Blood Pressure 112/69 112/64 O2 Sat by Pulse 100 98 99 Oximetry 09/30/21 09/30/21 09/30/21 00:55 01:00 01:11 Temperature Pulse Rate 68 70 66 Respiratory 18 18 18 Rate Blood Pressure 104/68 104/68 O2 Sat by Pulse 100 99 99 Oximetry 09/30/21 09/30/2121 01:21 01:30 01:41 Temperature Pulse Rate 72 63 59 L Respiratory 18 18 18 Rate Blood Pressure 112/64 118/64 118/64 O2 Sat by Pulse 100 100 100 Oximetry 09/30/21 09/30/21 09/30/21 01:51 02:00 02:11 Temperature Pulse Rate 111 H 99 H 95 H Respiratory 18 18 18 Rate Blood Pressure 152/100 127/81 127/81 O2 Sat by Pulse 98 98 99 Oximetry 09/30/21 09/30/21 09/30/21 02:21 02:30 02:41 Temperature Pulse Rate 88 82 77 Respiratory 18 18 18 Rate Blood Pressure 125/79 113/72 113/72 O2 Sat by Pulse 100 100 100 Oximetry 09/30/21 09/30/21 09/30/21 02:51 02:53 03:00 Temperature Pulse Rate 78 73 77 Respiratory 18 18 Rate Blood Pressure 114/70 115/66 O2 Sat by Pulse 100 98 Oximetry 09/30/21 09/30/21 09/30/21 03:11 03:21 03:30 Temperature Pulse Rate 65 72 63 Respiratory 18 18 18 Rate Blood Pressure 115/66 119/77 115/63 O2 Sat by Pulse 100 100 100 Oximetry 09/30/21 09/30/21 09/30/21 03:41 03:45 03:51 Temperature 97.6 F Pulse Rate 69 65 Respiratory 18 18 Rate Blood Pressure 115/63 111/70 O2 Sat by Pulse 100 100 Oximetry 09/30/21 09/30/21 09/30/21 04:00 04:11 04:21 Temperature Pulse Rate 55 L 61 59 L Respiratory 18 18 18 Rate Blood Pressure 122/78 122/78 116/71 O2 Sat by Pulse 100 100 100 Oximetry 09/30/21 09/30/21 09/30/21 04:24 04:30 04:41 Temperature Pulse Rate 65 62 99 H Respiratory 18 19 Rate Blood Pressure 115/66 119/78 119/78 O2 Sat by Pulse 100 100 99 Oximetry 09/30/21 09/30/21 09/30/21 04:51 05:00 05:11 Temperature Pulse Rate 79 106 H 130 H Respiratory 18 20 23 Rate Blood Pressure 122/73 132/85 132/85 O2 Sat by Pulse 99 99 99 Oximetry 09/30/21 09/30/21 09/30/21 05:21 05:25 05:30 Temperature Pulse Rate 134 H 91 H 87 Respiratory 20 22 Rate Blood Pressure 132/81 134/81 132/80 O2 Sat by Pulse 100 98 100 Oximetry 09/30/21 09/30/21 09/30/21 05:41 05:51 06:00 Temperature Pulse Rate 109 H 91 H 109 H Respiratory 12 18 14 Rate Blood Pressure 132/80 134/81 139/83 O2 Sat by Pulse 100 100 100 Oximetry 09/30/21 09/30/21 09/30/21 06:11 06:21 06:23 Temperature Pulse Rate 101 H 93 H Respiratory 19 15 Rate Blood Pressure 139/83 118/64 O2 Sat by Pulse 99 99 97 Oximetry 09/30/21 09/30/21 09/30/21 06:31 06:41 06:51 Temperature Pulse Rate 80 87 92 H Respiratory 24 26 H 25 H Rate Blood Pressure 119/51 119/51 112/52 O2 Sat by Pulse 100 100 99 Oximetry 09/30/21 09/30/21 09/30/21 07:00 07:11 07:21 Temperature Pulse Rate 83 111 H 95 H Respiratory 24 22 24 Rate Blood Pressure 105/52 105/52 105/52 O2 Sat by Pulse 98 97 100 Oximetry 09/30/21 09/30/21 09/30/21 07:30 07:41 07:51 Temperature Pulse Rate 88 80 113 H Respiratory 23 25 H 14 Rate Blood Pressure 102/52 102/52 101/53 O2 Sat by Pulse 99 100 99 Oximetry 09/30/21 09/30/21 09/30/21 08:00 08:11 08:21 Temperature 98.2 F Pulse Rate 121 H 106 H 78 Respiratory 23 13 26 H Rate Blood Pressure 104/48 104/48 120/67 O2 Sat by Pulse 100 99 98 Oximetry 09/30/21 09/30/21 09/30/21 08:30 08:41 08:51 Temperature Pulse Rate 79 Respiratory 16 Rate Blood Pressure 119/72 119/72 133/65 O2 Sat by Pulse 99 100 97 Oximetry 09/30/21 09/30/21 09/30/21 09:00 09:11 09:21 Temperature Pulse Rate 75 70 69 Respiratory 31 H 27 H 24 Rate Blood Pressure 108/53 108/53 112/56 O2 Sat by Pulse 98 99 98 Oximetry 09/30/21 09/30/21 09/30/21 09:30 09:38 09:41 Temperature Pulse Rate 90 Respiratory 16 Rate Blood Pressure 111/62 111/62 O2 Sat by Pulse 97 97 97 Oximetry 09/30/21 09/30/21 09/30/21 09:51 10:00 10:11 Temperature Pulse Rate Respiratory Rate Blood Pressure 109/55 110/65 110/65 O2 Sat by Pulse 97 93 97 Oximetry - General Apperance Constitutional: comfortable - EENT EENT: PERRL, mucous membranes moist - Respiratory Respiratory: lungs clear, rhonchi - Cardiovascular Cardiovascular: regular rate, normal S1, normal S2 Extremities: no peripheral edema bilat, no clubbing, cyanosis - Gastrointestinal Gastrointestinal: normoactive bowel sounds - Integumentary Integumentary: normal - Neurologic Cranial nerve examination: PERRL, EOMI, intact Speech examination: intact Detailed motor examination: grossly full strength in - Laboratory Findings CBC and BMP: 09/30/21 04:33 09/30/21 04:33 Abnormal Lab Findings: Abnormal Labs 09/28/21 09/28/21 09/28/21 21:49 21:49 21:49 WBC 13.6 H RBC 5.32 H Hct 46.1 H [place] % (Auto) [place] # (Auto) Seg Neutrophils % Seg Neuts % (Manual) 89.0 H Lymphocytes % (Manual) 6.0 L Seg Neutrophils # Man 12.1 H Lymphocytes # (Manual) 0.8 L APTT POC ABG pCO2 POC ABG pO2 ABG pO2 ABG Base Excess ABG Hemoglobin ABG Oxyhemoglobin ABG Chloride ABG Glucose Carboxyhemoglobin Chloride Carbon Dioxide 17 L Creatinine 1.4 H Glucose 103 H Total Creatine Kinase 962 H Arterial Blood Glucose Urine WBC (Auto) Salicylates < 0.3 L Acetaminophen 09/28/21 09/28/21 09/29/21 21:49 21:49 00:57 WBC RBC Hct [place] % (Auto) [place] # (Auto) Seg Neutrophils % Seg Neuts % (Manual) Lymphocytes % (Manual) Seg Neutrophils # Man Lymphocytes # (Manual) APTT 22.1 L POC ABG pCO2 28.7 L POC ABG pO2 228.9 H ABG pO2 ABG Base Excess ABG Hemoglobin ABG Oxyhemoglobin 98.9 H ABG Chloride 109.0 H ABG Glucose 105 H Carboxyhemoglobin 0 L Chloride Carbon Dioxide Creatinine Glucose Total Creatine Kinase Arterial Blood Glucose 105 H Urine WBC (Auto) Salicylates Acetaminophen 5.0 L 09/29/21 09/30/21 09/30/21 Unknown 04:00 04:33 WBC RBC Hct [place] % (Auto) 9.2 H [place] # (Auto) 0.9 H Seg Neutrophils % 75.6 H Seg Neuts % (Manual) Lymphocytes % (Manual) Seg Neutrophils # Man Lymphocytes # (Manual) APTT POC ABG pCO2 POC ABG pO2 ABG pO2 130.5 H ABG Base Excess -3.3 L ABG Hemoglobin 13.4 L ABG Oxyhemoglobin ABG Chloride ABG Glucose Carboxyhemoglobin Chloride Carbon Dioxide Creatinine Glucose Total Creatine Kinase Arterial Blood Glucose Urine WBC (Auto) 150.0 H Salicylates Acetaminophen 09/30/21 04:33 WBC RBC Hct [place] % (Auto) [place] # (Auto) Seg Neutrophils % Seg Neuts % (Manual) Lymphocytes % (Manual) Seg Neutrophils # Man Lymphocytes # (Manual) APTT POC ABG pCO2 POC ABG pO2 ABG pO2 ABG Base Excess ABG Hemoglobin ABG Oxyhemoglobin ABG Chloride ABG Glucose Carboxyhemoglobin Chloride 110.0 H Carbon Dioxide 20 L Creatinine Glucose Total Creatine Kinase Arterial Blood Glucose Urine WBC (Auto) Salicylates Acetaminophen
--- NOTE | 2021-09-30 11:25 | Electrocardiograph Report ---
[facility] Test Date: 2021-09-30 Test Time: 08:28:10 Pat Name: JULIO PARKER Department: Room: A262 1 Gender: M [place]remt: ADOLFO : 1990 Requested By: COOKIE LOPEZ Order Number: [id number] Reading MD: Martinez Morrison Measurements Intervals [place] Rate: 85 P: 52 MT: 140 QRS: 66 QRSD: 96 T: 54 QT: 342 QTc: 406 Interpretive Statements Sinus arrhythmia Probable lateral infarct, old Compared to ECG 08/18/2021 11:46:53 No significant change noted. Electronically Signed On 09-30-2021 11:24:33 EST by Martinez Morrison
--- NOTE | 2021-09-30 11:45 | Progress Note ---
Assessment and Plan Acute hypoxemic resp failure s/p MVS Fevers, possible meningitis/encephalaitis Acute renal failure Metabolic acidosis Seizures - neurology evaluation ongoing - continue empiric meningitis / encephalitis - continue empiric Keppra as AED - prn supplemental oxygen to keep O2 sats > 90% - prn bronchodilators (MAHESH) with pulm hygiene per RT - avoid nephrotoxins, renally dose all medications - mobility protocols to prevent pressure ulcers - PT/OT as tolerated - Wound care per RN/WCT - accuchecks with glycemic control per SSI for target blood glucose < 180 mg/dL - tobacco abstinence strongly counseled at the bedside - home oxygen evaluation at discharge - GI & VTE prophylaxis - Flu & pneumovax per protocol - continue other care per attending / other consultants - prn analgesia per pain score ... re-evaluate in am & prn ... transfer to medical floor [place] Subjective Principal diagnosis: Acute hypoxemic resp failure; Fevers; AMS; MICHAEL; Metabolic acidosis; Seizure Interval history: Patient is seen today for: Acute hypoxemic resp failure; Fevers; possible meningitis/encephalaitis; MICHAEL; Acute Metabolic acidosis Seen and examined at bedside; 24hour events reviewed; nursing and respiratory care staff consulted; no adverse overnight events reported to me; resting peacefully in bed; doing well post self extubation; still with cognitive dysfunction; no emesis or overt aspiration Objective Vital Signs - 12hr 09/29/21 09/30/21 09/30/21 23:52 00:00 00:40 Temperature 97.8 F Pulse Rate 71 73 Respiratory 18 Rate Blood Pressure 112/69 112/64 O2 Sat by Pulse 100 98 99 Oximetry 09/30/21 09/30/21 09/30/21 00:55 01:00 01:11 Temperature Pulse Rate 68 70 66 Respiratory 18 18 18 Rate Blood Pressure 104/68 104/68 O2 Sat by Pulse 100 99 99 Oximetry 09/30/21 09/30/21 09/30/21 01:21 01:30 01:41 Temperature Pulse Rate 72 63 59 L Respiratory 18 18 18 Rate Blood Pressure 112/64 118/64 118/64 O2 Sat by Pulse 100 100 100 Oximetry 09/30/21 09/30/21 09/30/21 01:51 02:00 02:11 Temperature Pulse Rate 111 H 99 H 95 H Respiratory 18 18 18 Rate Blood Pressure 152/100 127/81 127/81 O2 Sat by Pulse 98 98 99 Oximetry 09/30/21 09/30/21 09/30/21 02:21 02:30 02:41 Temperature Pulse Rate 88 82 77 Respiratory 18 18 18 Rate Blood Pressure 125/79 113/72 113/72 O2 Sat by Pulse 100 100 100 Oximetry 09/30/21 09/30/21 09/30/21 02:51 02:53 03:00 Temperature Pulse Rate 78 73 77 Respiratory 18 18 Rate Blood Pressure 114/70 115/66 O2 Sat by Pulse 100 98 Oximetry 09/30/21 09/30/21 09/30/21 03:11 03:21 03:30 Temperature Pulse Rate 65 72 63 Respiratory 18 18 18 Rate Blood Pressure 115/66 119/77 115/63 O2 Sat by Pulse 100 100 100 Oximetry 09/30/21 09/30/21 09/30/21 03:41 03:45 03:51 Temperature 97.6 F Pulse Rate 69 65 Respiratory 18 18 Rate Blood Pressure 115/63 111/70 O2 Sat by Pulse 100 100 Oximetry 09/30/21 09/30/21 09/30/21 04:00 04:11 04:21 Temperature Pulse Rate 55 L 61 59 L Respiratory 18 18 18 Rate Blood Pressure 122/78 122/78 116/71 O2 Sat by Pulse 100 100 100 Oximetry 09/30/21 09/30/21 09/30/21 04:24 04:30 04:41 Temperature Pulse Rate 65 62 99 H Respiratory 18 19 Rate Blood Pressure 115/66 119/78 119/78 O2 Sat by Pulse 100 100 99 Oximetry 09/30/21 09/30/21 09/30/21 04:51 05:00 05:11 Temperature Pulse Rate 79 106 H 130 H Respiratory 18 20 23 Rate Blood Pressure 122/73 132/85 132/85 O2 Sat by Pulse 99 99 99 Oximetry 09/30/21 09/30/21 09/30/21 05:21 05:25 05:30 Temperature Pulse Rate 134 H 91 H 87 Respiratory 20 22 Rate Blood Pressure 132/81 134/81 132/80 O2 Sat by Pulse 100 98 100 Oximetry 09/30/21 09/30/21 09/30/21 05:41 05:51 06:00 Temperature Pulse Rate 109 H 91 H 109 H Respiratory 12 18 14 Rate Blood Pressure 132/80 134/81 139/83 O2 Sat by Pulse 100 100 100 Oximetry 09/30/21 09/30/21 09/30/21 06:11 06:21 06:23 Temperature Pulse Rate 101 H 93 H Respiratory 19 15 Rate Blood Pressure 139/83 118/64 O2 Sat by Pulse 99 99 97 Oximetry 09/30/21 09/30/21 09/30/21 06:31 06:41 06:51 Temperature Pulse Rate 80 87 92 H Respiratory 24 26 H 25 H Rate Blood Pressure 119/51 119/51 112/52 O2 Sat by Pulse 100 100 99 Oximetry 09/30/21 09/30/21 09/30/21 07:00 07:11 07:21 Temperature Pulse Rate 83 111 H 95 H Respiratory 24 22 24 Rate Blood Pressure 105/52 105/52 105/52 O2 Sat by Pulse 98 97 100 Oximetry 09/30/21 09/30/21 09/30/21 07:30 07:41 07:51 Temperature Pulse Rate 88 80 113 H Respiratory 23 25 H 14 Rate Blood Pressure 102/52 102/52 101/53 O2 Sat by Pulse 99 100 99 Oximetry 09/30/21 09/30/21 09/30/21 08:00 08:11 08:21 Temperature 98.2 F Pulse Rate 121 H 106 H 78 Respiratory 23 13 26 H Rate Blood Pressure 104/48 104/48 120/67 O2 Sat by Pulse 100 99 98 Oximetry 09/30/21 09/30/21 09/30/21 08:30 08:41 08:51 Temperature Pulse Rate 79 Respiratory 16 Rate Blood Pressure 119/72 119/72 133/65 O2 Sat by Pulse 99 100 97 Oximetry 09/30/21 09/30/21 09/30/21 09:00 09:11 09:21 Temperature Pulse Rate 75 70 69 Respiratory 31 H 27 H 24 Rate Blood Pressure 108/53 108/53 112/56 O2 Sat by Pulse 98 99 98 Oximetry 09/30/21 09/30/21 09/30/21 09:30 09:38 09:41 Temperature Pulse Rate 90 Respiratory 16 Rate Blood Pressure 111/62 111/62 O2 Sat by Pulse 97 97 97 Oximetry 09/30/21 09/30/21 09/30/21 09:51 10:00 10:11 Temperature Pulse Rate Respiratory Rate Blood Pressure 109/55 110/65 110/65 O2 Sat by Pulse 97 93 97 Oximetry 09/30/21 09/30/21 09/30/21 10:21 10:31 10:41 Temperature Pulse Rate 104 H 84 Respiratory 21 28 H Rate Blood Pressure 148/52 110/65 121/73 O2 Sat by Pulse 96 94 95 Oximetry 09/30/21 09/30/21 10:51 11:00 Temperature Pulse Rate 93 H 103 H Respiratory 31 H 32 H Rate Blood Pressure 127/69 120/67 O2 Sat by Pulse 96 96 Oximetry Constitutional: no acute distress Eyes: non-icteric ENT: oropharynx moist Neck: supple, no lymphadenopathy, no JVD Effort: normal Ascultation: Bilateral: clear Percussion: Bilateral: not dull Cardiovascular: regular rate and rhythm, other (S1,S2) Gastrointestinal: normoactive bowel sounds, soft, non-tender, non-distended Integumentary: normal Extremities: no cyanosis, no edema, pink and warm, pulses normal Neurologic: non-focal exam (grossly), pupils equal and round, CN II-XII normal Psychiatric: mood appropriate, affect normal CBC and BMP: 10/01/21 07:00 10/01/21 07:00 ABG, PT/INR, D-dimer: ABG ABG pH 7.412 pH Units (7.350-7.450) 09/30/21 04:00 POC ABG pCO2 28.7 mmHg (32.0-48.0) L 09/29/21 00:57 ABG pCO2 32.8 mm Hg 09/30/21 04:00 POC ABG pO2 228.9 mmHg (83-108) H 09/29/21 00:57 ABG pO2 130.5 mm Hg (80.0-90.0) H 09/30/21 04:00 POC ABG HCO3 18.2 09/29/21 00:57 ABG O2 Saturation 98.6 % (95.0-99.0) 09/30/21 04:00 PT/INR, D-dimer PT 13.1 Sec. (12.2-14.9) 09/28/21 21:49 INR 0.89 (0.87-1.13) 09/28/21 21:49 Abnormal lab findings: Abnormal Labs 09/28/21 09/28/21 09/28/21 21:49 21:49 21:49 WBC 13.6 H RBC 5.32 H Hct 46.1 H [place] % (Auto) [place] # (Auto) Seg Neutrophils % Seg Neuts % (Manual) 89.0 H Lymphocytes % (Manual) 6.0 L Seg Neutrophils # Man 12.1 H Lymphocytes # (Manual) 0.8 L APTT POC ABG pCO2 POC ABG pO2 ABG pO2 ABG Base Excess ABG Hemoglobin ABG Oxyhemoglobin ABG Chloride ABG Glucose Carboxyhemoglobin Chloride Carbon Dioxide 17 L Creatinine 1.4 H Glucose 103 H Total Creatine Kinase 962 H Arterial Blood Glucose Urine WBC (Auto) Salicylates < 0.3 L Acetaminophen 09/28/21 09/28/21 09/29/21 21:49 21:49 00:57 WBC RBC Hct [place] % (Auto) [place] # (Auto) Seg Neutrophils % Seg Neuts % (Manual) Lymphocytes % (Manual) Seg Neutrophils # Man Lymphocytes # (Manual) APTT 22.1 L POC ABG pCO2 28.7 L POC ABG pO2 228.9 H ABG pO2 ABG Base Excess ABG Hemoglobin ABG Oxyhemoglobin 98.9 H ABG Chloride 109.0 H ABG Glucose 105 H Carboxyhemoglobin 0 L Chloride Carbon Dioxide Creatinine Glucose Total Creatine Kinase Arterial Blood Glucose 105 H Urine WBC (Auto) Salicylates Acetaminophen 5.0 L 09/29/21 09/30/21 09/30/21 Unknown 04:00 04:33 WBC RBC Hct [place] % (Auto) 9.2 H [place] # (Auto) 0.9 H Seg Neutrophils % 75.6 H Seg Neuts % (Manual) Lymphocytes % (Manual) Seg Neutrophils # Man Lymphocytes # (Manual) APTT POC ABG pCO2 POC ABG pO2 ABG pO2 130.5 H ABG Base Excess -3.3 L ABG Hemoglobin 13.4 L ABG Oxyhemoglobin ABG Chloride ABG Glucose Carboxyhemoglobin Chloride Carbon Dioxide Creatinine Glucose Total Creatine Kinase Arterial Blood Glucose Urine WBC (Auto) 150.0 H Salicylates Acetaminophen 09/30/21 04:33 WBC RBC Hct Henderson % (Auto) Henderson # (Auto) Seg Neutrophils % Seg Neuts % (Manual) Lymphocytes % (Manual) Seg Neutrophils # Man Lymphocytes # (Manual) APTT POC ABG pCO2 POC ABG pO2 ABG pO2 ABG Base Excess ABG Hemoglobin ABG Oxyhemoglobin ABG Chloride ABG Glucose Carboxyhemoglobin Chloride 110.0 H Carbon Dioxide 20 L Creatinine Glucose Total Creatine Kinase Arterial Blood Glucose Urine WBC (Auto) Salicylates Acetaminophen Allied health notes reviewed: nursing
--- NOTE | 2021-09-30 14:52 | Progress Note ---
Assessment and Plan Cultures: Blood culture no growth so far CSF culture no growth so far Sputum culture no growth so far A/P: 31-year-old man past medical history known seizures admitted with seizures, fever #Acute sepsis: With fevers and leukocytosis. Possibly secondary to meningitis/encephalitis. #Seizures: Questionable meningitis/encephalitis. CSF with elevated white count, however low neutrophils and normal glucose. As such unlikely bacterial me ningitis at this time. #MICHAEL: renally dose medications Recs: -Follow-up brain MRI -Continue vancomycin, ceftriaxone, acyclovir pending CSF cultures and MRI. Thank you for the consult, we will continue to follow. Burak Cabral MD [facility] ([facility]) O: [phone] F: [phone] Subjective Date of service: 09/30/21 Principal diagnosis: seizure Interval history: Afebrile now, normal white count. Cultures all remain negative so far. Imaging personally reviewed: Chest x-ray: Mild patchy pneumonia in the left lower lung Objective - Exam Narrative Exam: Physical Exam: Constitutional: Intubated, sedated Head, Ears, Nose: Normocephalic, atraumatic. External ears, nose normal Eyes: Conjunctivae/corneas clear. No icterus. No ptosis. Neck: Supple, no meningeal signs Oral: ETT Cardiovascular: S1, S2 normal. Respiratory: Good air entry, clear to auscultation bilaterally GI: Soft, non-tender; bowel sounds normal. No peritoneal signs. Musculoskeletal: No pedal edema, no cyanosis. Skin: No rash or abscess Hem/Lymphatic: No palpable cervical or supraclavicular nodes. No lymphangitis Psych: Sedated Neurological: Sedated - Constitutional Vitals: Vital Signs Temp Pulse Resp BP Pulse Ox 98.5 F 78 29 H 105/59 95 09/30/21 12:00 09/30/21 13:10 09/30/21 13:10 09/30/21 13:10 09/30/21 13:10 Temperature -Last 24 Hours Temperature 98.5 F Temperature 98.2 F Temperature 97.6 F Temperature 97.8 F Temperature 98.1 F Temperature 97.8 F - Labs CBC & Chem 7: 09/30/21 04:33 09/30/21 04:33 Labs: Abnormal lab results 09/30/21 09/30/21 09/30/21 Range/Units 04:00 04:33 04:33 [place] % (Auto) 9.2 H (0.0-7.3) % [place] # (Auto) 0.9 H (0.0-0.8) K/mm3 Seg Neutrophils % 75.6 H (40.0-70.0) % ABG pO2 130.5 H (80.0-90.0) mm Hg ABG Base Excess -3.3 L (-2.0-3.0) mmol/L ABG Hemoglobin 13.4 L (14.0-18.0) gm/dl Chloride 110.0 H (98-107) mmol/L Carbon Dioxide 20 L (22-30) mmol/L
--- NOTE | 2021-09-30 16:26 | Magnetic Resonance Report ---
MRI BRAIN WITHOUT AND WITH CONTRAST INDICATION / CLINICAL INFORMATION: Seizure disorder. TECHNIQUE: Multiplanar, multisequence MR images of the brain were obtained. COMPARISON: Head CT on 09/28/2021 FINDINGS: BRAIN / INTRACRANIAL CONTENTS: No acute ischemia, acute hemorrhage, mass effect, midline shift, or hy drocephalus. No chronic infarct or significant atrophy. No significant demyelinating changes. CRANIOCERVICAL JUNCTION: No significant abnormality. VASCULAR FLOW-VOIDS: No significant abnormality. ORBITS: No significant abnormality of visualized orbits. SINUSES / MASTOIDS: No significant abnormality of visualized sinuses and mastoid air cells. ADDITIONAL FINDINGS: None. IMPRESSION: 1. No findings to explain seizures or sequelae of seizures. Signer Name: Darian Garcia MD Signed: 09/30/2021 4:21 PM Workstation Name: [id number]
--- NOTE | 2021-09-30 17:50 | Progress Note ---
<SARAH HOLDER - Last Filed: 09/30/21 17:48> Assessment and Plan Assessment and plan: This is a 31 year old male with seizure disorders, cocaine abus admitted for seizures Neuro: Seizures, h/o cocaine and possible etoh abuse -Neurology consulted, appreciate recommendations -MRI brain showed no findings to explain seizures or sequele of seizures -EEG completed->see chart for details -Aspiration and seizure precautions -consuling on cessation of etoh and cocaine use -keppra -As needed analgesia Cardio: SR-ST -Blood pressure monitoring per protocol Resp: Acute hypoxic respiratory failure -CCM consulted, appreciate recommendations -Intubated on 09/28 and extubated on 09/30 -Supplemental oxygen as needed -Pulmonary hygiene -SPO2 monitor per protocol GI: NAD -PPI -24-hour +184 -Regular diet -Passed bedside swallow -BR: Senokot : Acute kidney injury, hyperkalemia, metabolic acidosis -likely secondary to vasomotor nephropathy -Trend CBC -Consider nephrology consult if kidney function worsens -Renally dose medications -Trend BMP Endo: NAD -Avoid hypoglycemia ID: Acute sepsis, r/o meningitis/encephailitis -presented wiht fevers, leukocytosis -ID consulted, appreciate recommendations -LP on admit -CSF with elevated WBC but normal glucose and low neutrophils -culture pending -abx per ID: vancomycin, ceftriaxone, acyclovir -follow fever and wbc curve Heme: leukocytosis (resolved) -Trend CBC -transfuse or hbg <7 -SCDs to BLE -heparin subq The high probability of a clinically significant, sudden or life threatening deterioration of the [neuro] system(s) required my full and direct attention, intervention and personal management. The aggregate critical care time was [60] minutes. This time is in addition to time spent performing reported procedures but includes the following: [x] Data Review and interpretation [x] Patient assessment and monitoring of vital signs [x] Documentation [x] Medication orders and management Disposition Plan: transfer to floor Total Time Spent with Patient (Minutes): 60 History Interval history: This is a 31-year-old -[place] male with seizure disorder, cocaine abuse and possible EtOH abuse who presented to emergency department on 09/28 via EMS with complaints of possible seizures. Upon arrival to the emergency department patient was awake but altered and nonverbal. Patient was febrile in the field via EMS. In the emergency department patient was combative and uncooperative and subsequently intubated for airway protection. Work-up in the emergency department revealed leukocytosis, metabolic acidosis, elevated BUN/creatinine, UA revealed pyuria, CSF was unremarkable UDS was significant for marijuana and benzodiazepine. Patient was admitted to the hospital service for possible meningitis and seizures with consults to ID, CCM and neurology. 09/29: Currently intubated on MV. Fentanyl and propofol running at 1mcg/kg/hr and 30mcg/kg/min respectively. Neurology evaluated patient at the bedside. Awaiting MRI. We will continue with current plan as stated in H&P. 09/30: extubated early this am. MRI brain completed. abx per ID until pending CSF cultures Hospitalist Physical - Constitutional Vitals: Temp Pulse Resp BP Pulse Ox 100.1 F H 93 H 19 120/61 98 09/30/21 17:40 09/30/21 17:40 09/30/21 17:40 09/30/21 17:40 09/30/21 17:40 General appearance: Present: no acute distress, well-nourished Results - Labs CBC & Chem 7: 09/30/21 04:33 09/30/21 04:33 Labs: Laboratory Last Values WBC 10.2 K/mm3 (4.5-11.0) 09/30/21 04:33 RBC 4.90 M/mm3 (3.65-5.03) 09/30/21 04:33 Hgb 14.1 gm/dl (11.8-15.2) 09/30/21 04:33 Hct 43.2 % (35.5-45.6) 09/30/21 04:33 MCV 88 fl (84-94) 09/30/21 04:33 MCH 29 pg (28-32) 09/30/21 04:33 MCHC 33 % (32-34) 09/30/21 04:33 RDW 14.4 % (13.2-15.2) 09/30/21 04:33 Plt Count 182 K/mm3 (140-440) 09/30/21 04:33 Lymph % (Auto) 14.9 % (13.4-35.0) 09/30/21 04:33 [place] % (Auto) 9.2 % (0.0-7.3) H 09/30/21 04:33 Eos % (Auto) 0.0 % (0.0-4.3) 09/30/21 04:33 Baso % (Auto) 0.3 % (0.0-1.8) 09/30/21 04:33 Lymph # (Auto) 1.5 K/mm3 (1.2-5.4) 09/30/21 04:33 [place] # (Auto) 0.9 K/mm3 (0.0-0.8) H 09/30/21 04:33 Eos # (Auto) 0.0 K/mm3 (0.0-0.4) 09/30/21 04:33 Baso # (Auto) 0.0 K/mm3 (0.0-0.1) 09/30/21 04:33 Add Manual Diff Complete 09/28/21 21:49 Total Counted 100 09/28/21 21:49 Seg Neutrophils % 75.6 % (40.0-70.0) H 09/30/21 04:33 Seg Neuts % (Manual) 89.0 % (40.0-70.0) H 09/28/21 21:49 Lymphocytes % (Manual) 6.0 % (13.4-35.0) L 09/28/21 21:49 Monocytes % (Manual) 5.0 % (0.0-7.3) 09/28/21 21:49 Nucleated RBC % Not Reportable 09/28/21 21:49 Seg Neutrophils # 7.7 K/mm3 (1.8-7.7) 09/30/21 04:33 Seg Neutrophils # Man 12.1 K/mm3 (1.8-7.7) H 09/28/21 21:49 Band Neutrophils # 0.0 K/mm3 09/28/21 21:49 Lymphocytes # (Manual) 0.8 K/mm3 (1.2-5.4) L 09/28/21 21:49 Abs React Lymphs (Man) 0.0 K/mm3 09/28/21 21:49 Monocytes # (Manual) 0.7 K/mm3 (0.0-0.8) 09/28/21 21:49 Eosinophils # (Manual) 0.0 K/mm3 (0.0-0.4) 09/28/21 21:49 Basophils # (Manual) 0.0 K/mm3 (0.0-0.1) 09/28/21 21:49 Metamyelocytes # 0.0 K/mm3 09/28/21 21:49 Myelocytes # 0.0 K/mm3 09/28/21 21:49 Promyelocytes # 0.0 K/mm3 09/28/21 21:49 Blast Cells # 0.0 K/mm3 09/28/21 21:49 WBC Morphology Not Reportable 09/28/21 21:49 Hypersegmented Neuts Not Reportable 09/28/21 21:49 Hyposegmented Neuts Not Reportable 09/28/21 21:49 Hypogranular Neuts Not Reportable 09/28/21 21:49 Smudge Cells Not Reportable 09/28/21 21:49 Toxic Granulation Not Reportable 09/28/21 21:49 Toxic Vacuolation Not Reportable 09/28/21 21:49 Dohle Bodies Not Reportable 09/28/21 21:49 Pelger-Huet Anomaly Not Reportable 09/28/21 21:49 Miya Rods Not Reportable 09/28/21 21:49 Platelet Estimate Not Reportable 09/28/21 21:49 Clumped Platelets Not Reportable 09/28/21 21:49 Plt Clumps, EDTA Not Reportable 09/28/21 21:49 Large Platelets Not Reportable 09/28/21 21:49 Giant Platelets Not Reportable 09/28/21 21:49 Platelet Satelliting Not Reportable 09/28/21 21:49 Plt Morphology Comment Not Reportable 09/28/21 21:49 RBC Morphology Normal 09/28/21 21:49 Dimorphic RBCs Not Reportable 09/28/21 21:49 Polychromasia Not Reportable 09/28/21 21:49 Hypochromasia Not Reportable 09/28/21 21:49 Poikilocytosis Not Reportable 09/28/21 21:49 Anisocytosis Not Reportable 09/28/21 21:49 Microcytosis Not Reportable 09/28/21 21:49 Macrocytosis Not Reportable 09/28/21 21:49 Spherocytes Not Reportable 09/28/21 21:49 Pappenheimer Bodies Not Reportable 09/28/21 21:49 Sickle Cells Not Reportable 09/28/21 21:49 Target Cells Not Reportable 09/28/21 21:49 Tear Drop Cells Not Reportable 09/28/21 21:49 Ovalocytes Not Reportable 09/28/21 21:49 Helmet Cells Not Reportable 09/28/21 21:49 [place] Bodies Not Reportable 09/28/21 21:49 [place] Rings Not Reportable 09/28/21 21:49 Moi Cells Not Reportable 09/28/21 21:49 Bite Cells Not Reportable 09/28/21 21:49 Crenated Cell Not Reportable 09/28/21 21:49 Elliptocytes Not Reportable 09/28/21 21:49 Acanthocytes (Spur) Not Reportable 09/28/21 21:49 Rouleaux Not Reportable 09/28/21 21:49 Hemoglobin C Crystals Not Reportable 09/28/21 21:49 Schistocytes Not Reportable 09/28/21 21:49 Malaria parasites Not Reportable 09/28/21 21:49 Renzo Bodies Not Reportable 09/28/21 21:49 Hem Pathologist Commnt No 09/28/21 21:49 PT 13.1 Sec. (12.2-14.9) 09/28/21 21:49 INR 0.89 (0.87-1.13) 09/28/21 21:49 APTT 22.1 Sec. (24.2-36.6) L 09/28/21 21:49 ABG pH 7.412 pH Units (7.350-7.450) 09/30/21 04:00 POC ABG pCO2 28.7 mmHg (32.0-48.0) L 09/29/21 00:57 ABG pCO2 32.8 mm Hg 09/30/21 04:00 POC ABG pO2 228.9 mmHg (83-108) H 09/29/21 00:57 ABG pO2 130.5 mm Hg (80.0-90.0) H 09/30/21 04:00 POC ABG HCO3 18.2 09/29/21 00:57 ABG HCO3 20.4 mmol/L (20.0-26.0) 09/30/21 04:00 ABG O2 Saturation 98.6 % (95.0-99.0) 09/30/21 04:00 ABG O2 Content 18.5 (0.0-44) 09/30/21 04:00 POC ABG Base Excess -4.8 09/29/21 00:57 ABG Base Excess -3.3 mmol/L (-2.0-3.0) L 09/30/21 04:00 ABG Hemoglobin 13.4 gm/dl (14.0-18.0) L 09/30/21 04:00 ABG Oxyhemoglobin 98.9 (94-98) H 09/29/21 00:57 ABG Carboxyhemoglobin 0.8 % (0.0-5.0) 09/30/21 04:00 ABG Methemoglobin 0.5 % (0.0-1.5) 09/30/21 04:00 ABG Sodium 139.4 mmol/L (136.0-145.0) 09/29/21 00:57 ABG Potassium 3.7 mmol/L (3.40-4.50) 09/29/21 00:57 ABG Chloride 109.0 mmol/L (98-107) H 09/29/21 00:57 ABG Glucose 105 mg/dL (65-95) H 09/29/21 00:57 Oxyhemoglobin 97.3 % (95.0-99.0) 09/30/21 04:00 Carboxyhemoglobin 0 (0.5-1.5) L 09/29/21 00:57 FiO2 35 % 09/30/21 04:00 FiO2 % 80.0 09/29/21 00:57 Sodium 145 mmol/L (137-145) 09/30/21 04:33 Potassium 4.3 mmol/L (3.6-5.0) 09/30/21 04:33 Chloride 110.0 mmol/L (98-107) H 09/30/21 04:33 Carbon Dioxide 20 mmol/L (22-30) L 09/30/21 04:33 Anion Gap 19 mmol/L 09/30/21 04:33 BUN 14 mg/dL (9-20) 09/30/21 04:33 Creatinine 1.0 mg/dL (0.8-1.3) 09/30/21 04:33 Estimated GFR > 60 ml/min 09/30/21 04:33 BUN/Creatinine Ratio 14 % 09/30/21 04:33 Glucose 78 mg/dL (75-100) 09/30/21 04:33 POC Glucose 77 mg/dL (70-105) 09/30/21 00:49 Lactic Acid 1.00 mmol/L (0.7-2.0) 09/28/21 21:49 Calcium 8.5 mg/dL (8.4-10.2) 09/30/21 04:33 Total Bilirubin 0.60 mg/dL (0.1-1.2) 09/28/21 21:49 AST 35 units/L (5-40) 09/28/21 21:49 ALT 27 units/L (7-56) 09/28/21 21:49 Alkaline Phosphatase 76 units/L (35-129) 09/28/21 21:49 Total Creatine Kinase 962 units/L (55-170) H 09/28/21 21:49 Total Protein 8.2 g/dL (6.3-8.2) 09/28/21 21:49 Albumin 4.7 g/dL (3.9-5) 09/28/21 21:49 Albumin/Globulin Ratio 1.3 % 09/28/21 21:49 Arterial Blood Glucose 105 mg/dL (65-95) H 09/29/21 00:57 Urine Color Colorless (Yellow) 09/29/21 Unknown Urine Turbidity Turbid (Clear) 09/29/21 Unknown Urine pH 5.0 (5.0-7.0) 09/29/21 Unknown Ur Specific [place] 1.012 (1.003-1.030) 09/29/21 Unknown Urine Protein <15 mg/dl mg/dL (Negative) 09/29/21 Unknown Urine Glucose (UA) Neg mg/dL (Negative) 09/29/21 Unknown Urine Ketones 20 mg/dL (Negative) 09/29/21 Unknown Urine Blood Neg (Negative) 09/29/21 Unknown Urine Nitrite Neg (Negative) 09/29/21 Unknown Urine Bilirubin Neg (Negative) 09/29/21 Unknown Urine Urobilinogen < 2.0 mg/dL (<2.0) 09/29/21 Unknown Ur Leukocyte Esterase Neg (Negative) 09/29/21 Unknown Urine WBC (Auto) 150.0 /HPF (0.0-6.0) H 09/29/21 Unknown Urine RBC (Auto) 64.0 /HPF (0.0-6.0) 09/29/21 Unknown U Epithel Cells (Auto) < 1.0 /HPF (0-13.0) 09/29/21 Unknown Urine Mucus Few /HPF 09/29/21 Unknown Urine Yeast (Budding) Few /HPF 09/29/21 Unknown CSF Appearance Clear 09/28/21 00:30 CSF Color Colorless 09/28/21 00:30 CSF WBC 32 /mm3 (1-10) 09/28/21 00:30 CSF RBC 11 /mm3 (0-0) 09/28/21 00:30 CSF Seg Neutrophils 66.0 % (0-6) 09/28/21 00:30 CSF Lymphocytes % 14.0 % (40-80) 09/28/21 00:30 CSF Reactive Lymphs 0 % 09/28/21 00:30 CSF Monocytes % 18.0 % (15-45) 09/28/21 00:30 CSF Eosinophils % 2.0 % 09/28/21 00:30 CSF Basophils 0 % 09/28/21 00:30 CSF Pathologist Review C 09/28/21 00:30 CSF Glucose 78 mg/dL 09/28/21 00:30 CSF Total Protein 28 mg/dL 09/28/21 00:30 Salicylates < 0.3 mg/dL (2.8-20.0) L 09/28/21 21:49 Urine Opiates Screen Negative 09/29/21 Unknown Urine Methadone Screen Negative 09/29/21 Unknown Acetaminophen 5.0 ug/mL (10.0-30.0) L 09/28/21 21:49 Ur Barbiturates Screen Negative 09/29/21 Unknown Ur Phencyclidine Scrn Negative 09/29/21 Unknown Ur Amphetamines Screen Negative 09/29/21 Unknown U Benzodiazepines Scrn Positive 09/29/21 Unknown Urine Cocaine Screen Negative 09/29/21 Unknown U Marijuana (THC) Screen Positive 09/29/21 Unknown Drugs of Abuse Note Disclamer 09/29/21 Unknown Plasma/Serum Alcohol < 0.01 % (0-0.07) 09/28/21 21:49 Coronavirus (PCR) Negative (Negative) 09/29/21 Unknown Microbiology: Microbiology 09/29/21 00:50 Tracheal Aspirate Sputum Culture - Preliminary 09/28/21 00:30 Cerebral Spinal Fluid CSF Culture - Preliminary 09/28/21 21:49 Peripheral/Venous Blood Culture - Preliminary NO GROWTH AFTER 24 HOURS 09/28/21 21:55 Peripheral/Venous Blood Culture - Preliminary NO GROWTH AFTER 24 HOURS Active Medications - Current Medications Current Medications: Generic Name Dose Route Start Last Admin Trade Name Freq PRN Reason Stop Dose Admin Acetaminophen 650 mg 09/29/21 02:08 Acetaminophen 325 Mg Tab PO Q6H PRN Pain MILD(1-3)/Fever >100.5/DOE Famotidine 20 mg 09/30/21 10:00 09/30/21 09:27 Famotidine 20 Mg Tab PO 20 mg QDAY IZA Administration Heparin Sodium (Porcine) 5,000 unit 09/29/21 06:00 09/30/21 05:26 Heparin 5,000 Unit/1 Ml Vial SUB-Q 5,000 unit Q8HR IZA Administration Hydrophilic Ointment 1 applic 09/28/21 21:52 Lip Therapy Vaseline TP Q2HR PRN Dry Lips Ceftriaxone Sodium 2 gm in 100 mls @ 200 mls/hr 09/29/21 06:00 09/30/21 05:17 Rocephin/Ns 2 Gm/100 Ml IV 200 mls/hr Q12H IZA Administration Protocol Vancomycin HCl 1,500 mg/ 530 mls @ 333.333 mls/hr 09/29/21 12:00 09/30/21 11:57 Sodium Chloride IV 333.333 mls/hr Q12H IZA Administration Acyclovir 800 mg/ Sodium 116 mls @ 100 mls/hr 09/29/21 14:00 09/30/21 05:18 Chloride IV 100 mls/hr Q8HR IZA Administration Protocol Levetiracetam 500 mg 09/30/21 22:00 Levetiracetam 500 Mg Tab PO BID IZA Magnesium Hydroxide 30 ml 09/29/21 02:17 Magnesium Hydroxide (Mom) Oral Liqd Udc PO Q4H PRN Constipation Oxycodone HCl 5 mg 09/30/21 08:47 Oxycodone 5 Mg Tab PO Q8H PRN Pain, Moderate (4-6) Senna/Docusate Sodium 1 tab 09/30/21 22:00 Sennosides/Docusate Sodium 8.6/50 Mg Tab PO QHS IZA Sodium Chloride 10 ml 09/29/21 10:00 09/30/21 09:27 Sodium Chloride 0.9% 10 Ml Flush Syringe IV 10 ml BID IZA Administration Sodium Chloride 10 ml 09/29/21 02:08 Sodium Chloride 0.9% 10 Ml Flush Syringe IV PRN PRN LINE FLUSH Nutrition/Malnutrition Assess - Dietary Evaluation Nutrition/Malnutrition Findings: Nutrition Notes Start: 09/29/21 12:28 Freq: Status: Active Protocol: Document 09/30/21 15:24 NHALL (Rec: 09/30/21 15:25 NHALL [email or web address]) Nutrition Notes Initial or Follow up Brief Note Current Diet Regular Subjective/Other Information Pt extubated this am and passed bedside swallow test. Diet advanced for lunch today. Nutrition Intervention Follow-Up By: 10/03/21 Additional Comments F/U: intakes <DILMA SMITH - Last Filed: 10/02/21 07:21> Assessment and Plan Assessment and plan: I saw and evaluated the patient. Discussed with the nurse practitioner and agree with their findings and plan as documented in this note. Hospitalist Physical - Constitutional Vitals: Temp Pulse Resp BP Pulse Ox 99.1 F 65 18 124/77 100 10/02/21 04:26 10/02/21 04:26 10/02/21 04:26 10/02/21 04:26 10/02/21 04:26 Results - Labs CBC & Chem 7: 10/01/21 07:00 10/01/21 07:00 Labs: Laboratory Last Values WBC 5.4 K/mm3 (4.5-11.0) 10/01/21 07:00 RBC 4.42 M/mm3 (3.65-5.03) 10/01/21 07:00 Hgb 12.7 gm/dl (11.8-15.2) 10/01/21 07:00 Hct 38.7 % (35.5-45.6) 10/01/21 07:00 MCV 88 fl (84-94) 10/01/21 07:00 MCH 29 pg (28-32) 10/01/21 07:00 MCHC 33 % (32-34) 10/01/21 07:00 RDW 14.1 % (13.2-15.2) 10/01/21 07:00 Plt Count 190 K/mm3 (140-440) 10/01/21 07:00 Lymph % (Auto) 14.9 % (13.4-35.0) 09/30/21 04:33 [place] % (Auto) 9.2 % (0.0-7.3) H 09/30/21 04:33 Eos % (Auto) 0.0 % (0.0-4.3) 09/30/21 04:33 Baso % (Auto) 0.3 % (0.0-1.8) 09/30/21 04:33 Lymph # (Auto) 1.5 K/mm3 (1.2-5.4) 09/30/21 04:33 [place] # (Auto) 0.9 K/mm3 (0.0-0.8) H 09/30/21 04:33 Eos # (Auto) 0.0 K/mm3 (0.0-0.4) 09/30/21 04:33 Baso # (Auto) 0.0 K/mm3 (0.0-0.1) 09/30/21 04:33 Add Manual Diff Complete 09/28/21 21:49 Total Counted 100 09/28/21 21:49 Seg Neutrophils % 75.6 % (40.0-70.0) H 09/30/21 04:33 Seg Neuts % (Manual) 89.0 % (40.0-70.0) H 09/28/21 21:49 Lymphocytes % (Manual) 6.0 % (13.4-35.0) L 09/28/21 21:49 Monocytes % (Manual) 5.0 % (0.0-7.3) 09/28/21 21:49 Nucleated RBC % Not Reportable 09/28/21 21:49 Seg Neutrophils # 7.7 K/mm3 (1.8-7.7) 09/30/21 04:33 Seg Neutrophils # Man 12.1 K/mm3 (1.8-7.7) H 09/28/21 21:49 Band Neutrophils # 0.0 K/mm3 09/28/21 21:49 Lymphocytes # (Manual) 0.8 K/mm3 (1.2-5.4) L 09/28/21 21:49 Abs React Lymphs (Man) 0.0 K/mm3 09/28/21 21:49 Monocytes # (Manual) 0.7 K/mm3 (0.0-0.8) 09/28/21 21:49 Eosinophils # (Manual) 0.0 K/mm3 (0.0-0.4) 09/28/21 21:49 Basophils # (Manual) 0.0 K/mm3 (0.0-0.1) 09/28/21 21:49 Metamyelocytes # 0.0 K/mm3 09/28/21 21:49 Myelocytes # 0.0 K/mm3 09/28/21 21:49 Promyelocytes # 0.0 K/mm3 09/28/21 21:49 Blast Cells # 0.0 K/mm3 09/28/21 21:49 WBC Morphology Not Reportable 09/28/21 21:49 Hypersegmented Neuts Not Reportable 09/28/21 21:49 Hyposegmented Neuts Not Reportable 09/28/21 21:49 Hypogranular Neuts Not Reportable 09/28/21 21:49 Smudge Cells Not Reportable 09/28/21 21:49 Toxic Granulation Not Reportable 09/28/21 21:49 Toxic Vacuolation Not Reportable 09/28/21 21:49 Dohle Bodies Not Reportable 09/28/21 21:49 Pelger-Huet Anomaly Not Reportable 09/28/21 21:49 Imya Rods Not Reportable 09/28/21 21:49 Platelet Estimate Not Reportable 09/28/21 21:49 Clumped Platelets Not Reportable 09/28/21 21:49 Plt Clumps, EDTA Not Reportable 09/28/21 21:49 Large Platelets Not Reportable 09/28/21 21:49 Giant Platelets Not Reportable 09/28/21 21:49 Platelet Satelliting Not Reportable 09/28/21 21:49 Plt Morphology Comment Not Reportable 09/28/21 21:49 RBC Morphology Normal 09/28/21 21:49 Dimorphic RBCs Not Reportable 09/28/21 21:49 Polychromasia Not Reportable 09/28/21 21:49 Hypochromasia Not Reportable 09/28/21 21:49 Poikilocytosis Not Reportable 09/28/21 21:49 Anisocytosis Not Reportable 09/28/21 21:49 Microcytosis Not Reportable 09/28/21 21:49 Macrocytosis Not Reportable 09/28/21 21:49 Spherocytes Not Reportable 09/28/21 21:49 Pappenheimer Bodies Not Reportable 09/28/21 21:49 Sickle Cells Not Reportable 09/28/21 21:49 Target Cells Not Reportable 09/28/21 21:49 Tear Drop Cells Not Reportable 09/28/21 21:49 Ovalocytes Not Reportable 09/28/21 21:49 Helmet Cells Not Reportable 09/28/21 21:49 [place] Bodies Not Reportable 09/28/21 21:49 [place] Rings Not Reportable 09/28/21 21:49 [place] Cells Not Reportable 09/28/21 21:49 Bite Cells Not Reportable 09/28/21 21:49 Crenated Cell Not Reportable 09/28/21 21:49 Elliptocytes Not Reportable 09/28/21 21:49 Acanthocytes (Spur) Not Reportable 09/28/21 21:49 Rouleaux Not Reportable 09/28/21 21:49 Hemoglobin C Crystals Not Reportable 09/28/21 21:49 Schistocytes Not Reportable 09/28/21 21:49 Malaria parasites Not Reportable 09/28/21 21:49 Renzo Bodies Not Reportable 09/28/21 21:49 Hem Pathologist Commnt No 09/28/21 21:49 PT 13.1 Sec. (12.2-14.9) 09/28/21 21:49 INR 0.89 (0.87-1.13) 09/28/21 21:49 APTT 22.1 Sec. (24.2-36.6) L 09/28/21 21:49 ABG pH 7.412 pH Units (7.350-7.450) 09/30/21 04:00 POC ABG pCO2 28.7 mmHg (32.0-48.0) L 09/29/21 00:57 ABG pCO2 32.8 mm Hg 09/30/21 04:00 POC ABG pO2 228.9 mmHg (83-108) H 09/29/21 00:57 ABG pO2 130.5 mm Hg (80.0-90.0) H 09/30/21 04:00 POC ABG HCO3 18.2 09/29/21 00:57 ABG HCO3 20.4 mmol/L (20.0-26.0) 09/30/21 04:00 ABG O2 Saturation 98.6 % (95.0-99.0) 09/30/21 04:00 ABG O2 Content 18.5 (0.0-44) 09/30/21 04:00 POC ABG Base Excess -4.8 09/29/21 00:57 ABG Base Excess -3.3 mmol/L (-2.0-3.0) L 09/30/21 04:00 ABG Hemoglobin 13.4 gm/dl (14.0-18.0) L 09/30/21 04:00 ABG Oxyhemoglobin 98.9 (94-98) H 09/29/21 00:57 ABG Carboxyhemoglobin 0.8 % (0.0-5.0) 09/30/21 04:00 ABG Methemoglobin 0.5 % (0.0-1.5) 09/30/21 04:00 ABG Sodium 139.4 mmol/L (136.0-145.0) 09/29/21 00:57 ABG Potassium 3.7 mmol/L (3.40-4.50) 09/29/21 00:57 ABG Chloride 109.0 mmol/L (98-107) H 09/29/21 00:57 ABG Glucose 105 mg/dL (65-95) H 09/29/21 00:57 Oxyhemoglobin 97.3 % (95.0-99.0) 09/30/21 04:00 Carboxyhemoglobin 0 (0.5-1.5) L 09/29/21 00:57 FiO2 35 % 09/30/21 04:00 FiO2 % 80.0 09/29/21 00:57 Sodium 141 mmol/L (137-145) 10/01/21 07:00 Potassium 3.0 mmol/L (3.6-5.0) L D 10/01/21 07:00 Chloride 107.4 mmol/L (98-107) H 10/01/21 07:00 Carbon Dioxide 24 mmol/L (22-30) 10/01/21 07:00 Anion Gap 13 mmol/L 10/01/21 07:00 BUN 10 mg/dL (9-20) 10/01/21 07:00 Creatinine 1.0 mg/dL (0.8-1.3) 10/01/21 07:00 Estimated GFR > 60 ml/min 10/01/21 07:00 BUN/Creatinine Ratio 10 % 10/01/21 07:00 Glucose 96 mg/dL (75-100) 10/01/21 07:00 POC Glucose 120 mg/dL (70-105) H 10/01/21 21:27 Lactic Acid 1.00 mmol/L (0.7-2.0) 09/28/21 21:49 Calcium 8.3 mg/dL (8.4-10.2) L 10/01/21 07:00 Total Bilirubin 0.60 mg/dL (0.1-1.2) 09/28/21 21:49 AST 35 units/L (5-40) 09/28/21 21:49 ALT 27 units/L (7-56) 09/28/21 21:49 Alkaline Phosphatase 76 units/L (35-129) 09/28/21 21:49 Total Creatine Kinase 962 units/L (55-170) H 09/28/21 21:49 Total Protein 8.2 g/dL (6.3-8.2) 09/28/21 21:49 Albumin 4.7 g/dL (3.9-5) 09/28/21 21:49 Albumin/Globulin Ratio 1.3 % 09/28/21 21:49 Arterial Blood Glucose 105 mg/dL (65-95) H 09/29/21 00:57 Urine Color Colorless (Yellow) 09/29/21 Unknown Urine Turbidity Turbid (Clear) 09/29/21 Unknown Urine pH 5.0 (5.0-7.0) 09/29/21 Unknown Ur Specific [place] 1.012 (1.003-1.030) 09/29/21 Unknown Urine Protein <15 mg/dl mg/dL (Negative) 09/29/21 Unknown Urine Glucose (UA) Neg mg/dL (Negative) 09/29/21 Unknown Urine Ketones 20 mg/dL (Negative) 09/29/21 Unknown Urine Blood Neg (Negative) 09/29/21 Unknown Urine Nitrite Neg (Negative) 09/29/21 Unknown Urine Bilirubin Neg (Negative) 09/29/21 Unknown Urine Urobilinogen < 2.0 mg/dL (<2.0) 09/29/21 Unknown Ur Leukocyte Esterase Neg (Negative) 09/29/21 Unknown Urine WBC (Auto) 150.0 /HPF (0.0-6.0) H 09/29/21 Unknown Urine RBC (Auto) 64.0 /HPF (0.0-6.0) 09/29/21 Unknown U Epithel Cells (Auto) < 1.0 /HPF (0-13.0) 09/29/21 Unknown Urine Mucus Few /HPF 09/29/21 Unknown Urine Yeast (Budding) Few /HPF 09/29/21 Unknown CSF Appearance Clear 09/28/21 00:30 CSF Color Colorless 09/28/21 00:30 CSF WBC 32 /mm3 (1-10) 09/28/21 00:30 CSF RBC 11 /mm3 (0-0) 09/28/21 00:30 CSF Seg Neutrophils 66.0 % (0-6) 09/28/21 00:30 CSF Lymphocytes % 14.0 % (40-80) 09/28/21 00:30 CSF Reactive Lymphs 0 % 09/28/21 00:30 CSF Monocytes % 18.0 % (15-45) 09/28/21 00:30 CSF Eosinophils % 2.0 % 09/28/21 00:30 CSF Basophils 0 % 09/28/21 00:30 CSF Pathologist Review C 09/28/21 00:30 CSF Glucose 78 mg/dL 09/28/21 00:30 CSF Total Protein 28 mg/dL 09/28/21 00:30 Vancomycin Trough 20.6 ug/mL (5.0-20.0) H 10/02/21 04:22 Salicylates < 0.3 mg/dL (2.8-20.0) L 09/28/21 21:49 Urine Opiates Screen Negative 09/29/21 Unknown Urine Methadone Screen Negative 09/29/21 Unknown Acetaminophen 5.0 ug/mL (10.0-30.0) L 09/28/21 21:49 Ur Barbiturates Screen Negative 09/29/21 Unknown Ur Phencyclidine Scrn Negative 09/29/21 Unknown Ur Amphetamines Screen Negative 09/29/21 Unknown U Benzodiazepines Scrn Positive 09/29/21 Unknown Urine Cocaine Screen Negative 09/29/21 Unknown U Marijuana (THC) Screen Positive 09/29/21 Unknown Drugs of Abuse Note Disclamer 09/29/21 Unknown Plasma/Serum Alcohol < 0.01 % (0-0.07) 09/28/21 21:49 Coronavirus (PCR) Negative (Negative) 09/29/21 Unknown Microbiology: Microbiology 09/28/21 21:49 Peripheral/Venous Blood Culture - Preliminary NO GROWTH AFTER 72 HOURS 09/28/21 21:55 Peripheral/Venous Blood Culture - Preliminary NO GROWTH AFTER 72 HOURS 09/28/21 00:30 Cerebral Spinal Fluid CSF Culture - Preliminary Warner/IV: Voiding Method Urinal Active Medications - Current Medications Current Medications: Generic Name Dose Route Start Last Admin Trade Name Freq PRN Reason Stop Dose Admin Acetaminophen 650 mg 09/29/21 02:08 Acetaminophen 325 Mg Tab PO Q6H PRN Pain MILD(1-3)/Fever >100.5/DOE Famotidine 20 mg 09/30/21 10:00 10/01/21 10:53 Famotidine 20 Mg Tab PO 20 mg QDAY IZA Administration Heparin Sodium (Porcine) 5,000 unit 09/29/21 06:00 10/02/21 06:12 Heparin 5,000 Unit/1 Ml Vial SUB-Q 5,000 unit Q8HR IZA Administration Hydrophilic Ointment 1 applic 09/28/21 21:52 Lip Therapy Vaseline TP Q2HR PRN Dry Lips Ceftriaxone Sodium 2 gm in 100 mls @ 200 mls/hr 09/29/21 06:00 10/02/21 06:13 Rocephin/Ns 2 Gm/100 Ml IV 200 mls/hr Q12H IZA Administration Protocol Vancomycin HCl 1,500 mg/ 530 mls @ 333.333 mls/hr 09/29/21 12:00 10/01/21 23:47 Sodium Chloride IV 333.333 mls/hr Q12H IZA Administration Acyclovir 800 mg/ Sodium 116 mls @ 100 mls/hr 09/29/21 14:00 10/02/21 06:12 Chloride IV 100 mls/hr Q8HR IZA Administration Protocol Levetiracetam 500 mg 09/30/21 22:00 10/01/21 21:56 Levetiracetam 500 Mg Tab PO 500 mg BID IZA Administration Magnesium Hydroxide 30 ml 09/29/21 02:17 Magnesium Hydroxide (Mom) Oral Liqd Udc PO Q4H PRN Constipation Oxycodone HCl 5 mg 09/30/21 08:47 Oxycodone 5 Mg Tab PO Q8H PRN Pain, Moderate (4-6) Senna/Docusate Sodium 1 tab 09/30/21 22:00 10/01/21 21:56 Sennosides/Docusate Sodium 8.6/50 Mg Tab PO 1 tab QHS IZA Administration Sodium Chloride 10 ml 09/29/21 10:00 10/01/21 21:57 Sodium Chloride 0.9% 10 Ml Flush Syringe IV 10 ml BID IZA Administration Sodium Chloride 10 ml 09/29/21 02:08 Sodium Chloride 0.9% 10 Ml Flush Syringe IV PRN PRN LINE FLUSH Nutrition/Malnutrition Assess - Dietary Evaluation Nutrition/Malnutrition Findings: Nutrition Notes Start: 09/29/21 12:28 Freq: Status: Active Protocol: Document 09/30/21 15:24 [facility] (Rec: 09/30/21 15:25 [facility] [id number]) Nutrition Notes Initial or Follow up Brief Note Current Diet Regular Subjective/Other Information Pt extubated this am and passed bedside swallow test. Diet advanced for lunch today. Nutrition Intervention Follow-Up By: 10/03/21 Additional Comments F/U: intakes
[2021-09-30] MEDS: levETIRAcetam 500 MG TAB PO SCH (21:52)
[2021-09-30] MEDS: SENNOSIDES/DOCUSATE SODIUM 8.6/50 MG TAB PO SCH (21:52)
[2021-10-01] MEDS: VANCOMYCIN 1,500 MG in SODIUM CHLORIDE 0.9% 500 ML 500 ML IV SCH ×3 (00:19→23:47)
[2021-10-01] MEDS: ACYCLOVIR 800 MG in SODIUM CHLORIDE 0.9% 100 ML IV SCH ×3 (06:35→21:57)
[2021-10-01] MEDS: HEPARIN 5,000 UNIT/1 ML VIAL SUB-Q SCH ×3 (06:35→21:56)
[2021-10-01] MEDS: cefTRIAXone/NS 2 GM/100 ML 2 GM/100 ML BAG IV SCH ×2 (06:49→18:10)
[2021-10-01 07:23] LABS: Hematocrit 38.7 % (35.5-45.6); Hemoglobin 12.7 gm/dl (11.8-15.2); Mean Corpuscular HGB Conc 33 % (32-34); Mean Corpuscular Volume 88 fl (84-94); Platelet Count 190 K/mm3 (140-440); Red Blood Count 4.42 M/mm3 (3.65-5.03); Red Cell Distribution Width 14.1 % (13.2-15.2)
[2021-10-01 07:42] LABS: BUN/Creatinine Ratio 10; Blood Urea Nitrogen 10 mg/dL (9-20); Calcium 8.3 mg/dL (8.4-10.2); Hemolysis Index 3
--- NOTE | 2021-10-01 07:43 | Progress Note ---
Assessment and Plan Assessment and plan: Assessment and plan: This is a 31-year-old -Mauritian male with seizure disorder, cocaine abuse and possible EtOH abuse who presented to emergency department on 09/28 via EMS with complaints of possible seizures. Upon arrival to the emergency department patient was awake but altered and nonverbal. Patient was febrile in the field via EMS. In the emergency department patient was combative and uncooperative and subsequently intubated for airway protection. Work-up in the emergency department revealed leukocytosis, metabolic acidosis, elevated BUN/creatinine, UA revealed pyuria, CSF was unremarkable UDS was significant for marijuana and benzodiazepine. Patient was admitted to the hospital service for possible meningitis and seizures with consults to ID, CCM and neurology. 09/29: Currently intubated on MV. Fentanyl and propofol running at 1mcg/kg/hr and 30mcg/kg/min respectively. Neurology evaluated patient at the bedside. Awaiting MRI. We will continue with current plan as stated in H&P. 09/30: extubated early this am. MRI brain completed. abx per ID until pending CSF cultures 10/01: MRI brain completed, no findings consistent with seizure. Neuro input noted. Also discussed alcohol cessation as this could have very well caused patient seizures. Patient should be on isolation since meningitis is suspected. D/w RN about this. LP culture and sensitivities pending. continue empriic antibiotics.Will follow ID recs. Neuro: Seizures, h/o cocaine and possible etoh abuse -Neurology consulted, appreciate recommendations -MRI brain showed no findings to explain seizures or sequele of seizures -EEG completed->see chart for details -Aspiration and seizure precautions -consuling on cessation of etoh and cocaine use -lulu - behavioral health counseling +15 min re: ETOH abuse -As needed analgesia Cardio: SR-ST -Blood pressure monitoring per protocol Resp: Acute hypoxic respiratory failure -CCM consulted, appreciate recommendations -Intubated on 09/28 and extubated on 09/30 -Supplemental oxygen as needed -Pulmonary hygiene -SPO2 monitor per protocol GI: NAD -PPI -24-hour +184 -Regular diet -Passed bedside swallow -BR: Senokot : Acute kidney injury, hyperkalemia, metabolic acidosis -likely secondary to vasomotor nephropathy -Trend CBC -Consider nephrology consult if kidney function worsens -Renally dose medications -Trend BMP Endo: NAD -Avoid hypoglycemia ID: Acute sepsis, r/o meningitis/encephailitis -presented wiht fevers, leukocytosis, states he was never vaccinated for meningitis. -ID consulted, appreciate recommendations -LP on admit -CSF with elevated WBC but normal glucose and low neutrophils -cultures and sensitivities pending -abx per ID: vancomycin, ceftriaxone, acyclovir -follow fever and wbc curve Heme: leukocytosis (resolved) -Trend CBC -transfuse or hbg <7 -SCDs to BLE -heparin subq #Advance care planning Disease education conducted, care plan discussed, diagnoses discussed, prognosis discussed, patient is full code, patient acknowledges understanding and agree with care plan, +30 minutes. History Interval history: Patient resting comfortably on encounter. There are documented fevers overnight of 101.1 Fahrenheit. Patient states that he had chills overnight. He denied any headache, neck pain, photophobia, fever, myalgia. He did state that he is unvaccinated for meningitis. He denied any prior history of meningitis. We also discussed his use of alcohol. Patient states that he typically finishes a bottle of Charmaine on a daily basis. We discussed alcohol cessation and how this would be important for the patient's overall health including but not limited to his issues with recurrent seizures. Hospitalist Physical - Physical exam Narrative exam: Physical Exam: VITAL SIGNS: Reviewed. GENERAL: The patient appears normally developed, Vital signs as documented. HEAD: No signs of head trauma. EYES: Pupils are equal. Extraocular motions intact. EARS: Hearing grossly intact. MOUTH: Oropharynx is normal. NECK: No adenopathy, no JVD. CHEST: Chest with clear breath sounds bilaterally. No wheezes, rales, or rhonchi. CARDIAC: Regular rate and rhythm. S1 and S2, without murmurs, gallops, or rubs. VASCULAR: No Edema. Peripheral pulses normal and equal in all extremities. ABDOMEN: Soft, non tender and non distended. No rebound or guarding, and no masses palpated. Bowel Sounds normal. MUSCULOSKELETAL: Good range of motion of all major joints. Extremities without clubbing, cyanosis or edema. NEUROLOGIC EXAM: Alert and oriented x 4. no focal sensory or strength deficits. PSYCHIATRIC: Mood normal. SKIN: detail exam as documented in skin assessment - Constitutional Vitals: Temp Pulse Resp BP Pulse Ox 99.6 F 83 16 108/66 95 10/01/21 05:06 10/01/21 05:06 10/01/21 05:06 10/01/21 05:06 10/01/21 05:06 General appearance: Present: no acute distress, well-nourished Results - Labs CBC & Chem 7: 10/01/21 07:00 10/01/21 07:00 Labs: Laboratory Last Values WBC 5.4 K/mm3 (4.5-11.0) 10/01/21 07:00 RBC 4.42 M/mm3 (3.65-5.03) 10/01/21 07:00 Hgb 12.7 gm/dl (11.8-15.2) 10/01/21 07:00 Hct 38.7 % (35.5-45.6) 10/01/21 07:00 MCV 88 fl (84-94) 10/01/21 07:00 MCH 29 pg (28-32) 10/01/21 07:00 MCHC 33 % (32-34) 10/01/21 07:00 RDW 14.1 % (13.2-15.2) 10/01/21 07:00 Plt Count 190 K/mm3 (140-440) 10/01/21 07:00 Lymph % (Auto) 14.9 % (13.4-35.0) 09/30/21 04:33 [place] % (Auto) 9.2 % (0.0-7.3) H 09/30/21 04:33 Eos % (Auto) 0.0 % (0.0-4.3) 09/30/21 04:33 Baso % (Auto) 0.3 % (0.0-1.8) 09/30/21 04:33 Lymph # (Auto) 1.5 K/mm3 (1.2-5.4) 09/30/21 04:33 [place] # (Auto) 0.9 K/mm3 (0.0-0.8) H 09/30/21 04:33 Eos # (Auto) 0.0 K/mm3 (0.0-0.4) 09/30/21 04:33 Baso # (Auto) 0.0 K/mm3 (0.0-0.1) 09/30/21 04:33 Add Manual Diff Complete 09/28/21 21:49 Total Counted 100 09/28/21 21:49 Seg Neutrophils % 75.6 % (40.0-70.0) H 09/30/21 04:33 Seg Neuts % (Manual) 89.0 % (40.0-70.0) H 09/28/21 21:49 Lymphocytes % (Manual) 6.0 % (13.4-35.0) L 09/28/21 21:49 Monocytes % (Manual) 5.0 % (0.0-7.3) 09/28/21 21:49 Nucleated RBC % Not Reportable 09/28/21 21:49 Seg Neutrophils # 7.7 K/mm3 (1.8-7.7) 09/30/21 04:33 Seg Neutrophils # Man 12.1 K/mm3 (1.8-7.7) H 09/28/21 21:49 Band Neutrophils # 0.0 K/mm3 09/28/21 21:49 Lymphocytes # (Manual) 0.8 K/mm3 (1.2-5.4) L 09/28/21 21:49 Abs React Lymphs (Man) 0.0 K/mm3 09/28/21 21:49 Monocytes # (Manual) 0.7 K/mm3 (0.0-0.8) 09/28/21 21:49 Eosinophils # (Manual) 0.0 K/mm3 (0.0-0.4) 09/28/21 21:49 Basophils # (Manual) 0.0 K/mm3 (0.0-0.1) 09/28/21 21:49 Metamyelocytes # 0.0 K/mm3 09/28/21 21:49 Myelocytes # 0.0 K/mm3 09/28/21 21:49 Promyelocytes # 0.0 K/mm3 09/28/21 21:49 Blast Cells # 0.0 K/mm3 09/28/21 21:49 WBC Morphology Not Reportable 09/28/21 21:49 Hypersegmented Neuts Not Reportable 09/28/21 21:49 Hyposegmented Neuts Not Reportable 09/28/21 21:49 Hypogranular Neuts Not Reportable 09/28/21 21:49 Smudge Cells Not Reportable 09/28/21 21:49 Toxic Granulation Not Reportable 09/28/21 21:49 Toxic Vacuolation Not Reportable 09/28/21 21:49 Dohle Bodies Not Reportable 09/28/21 21:49 Pelger-Huet Anomaly Not Reportable 09/28/21 21:49 Miya Rods Not Reportable 09/28/21 21:49 Platelet Estimate Not Reportable 09/28/21 21:49 Clumped Platelets Not Reportable 09/28/21 21:49 Plt Clumps, EDTA Not Reportable 09/28/21 21:49 Large Platelets Not Reportable 09/28/21 21:49 Giant Platelets Not Reportable 09/28/21 21:49 Platelet Satelliting Not Reportable 09/28/21 21:49 Plt Morphology Comment Not Reportable 09/28/21 21:49 RBC Morphology Normal 09/28/21 21:49 Dimorphic RBCs Not Reportable 09/28/21 21:49 Polychromasia Not Reportable 09/28/21 21:49 Hypochromasia Not Reportable 09/28/21 21:49 Poikilocytosis Not Reportable 09/28/21 21:49 Anisocytosis Not Reportable 09/28/21 21:49 Microcytosis Not Reportable 09/28/21 21:49 Macrocytosis Not Reportable 09/28/21 21:49 Spherocytes Not Reportable 09/28/21 21:49 Pappenheimer Bodies Not Reportable 09/28/21 21:49 Sickle Cells Not Reportable 09/28/21 21:49 Target Cells Not Reportable 09/28/21 21:49 Tear Drop Cells Not Reportable 09/28/21 21:49 Ovalocytes Not Reportable 09/28/21 21:49 Helmet Cells Not Reportable 09/28/21 21:49 [place]-Elrod Bodies Not Reportable 09/28/21 21:49 [place] Rings Not Reportable 09/28/21 21:49 Lula Cells Not Reportable 09/28/21 21:49 Bite Cells Not Reportable 09/28/21 21:49 Crenated Cell Not Reportable 09/28/21 21:49 Elliptocytes Not Reportable 09/28/21 21:49 Acanthocytes (Spur) Not Reportable 09/28/21 21:49 Rouleaux Not Reportable 09/28/21 21:49 Hemoglobin C Crystals Not Reportable 09/28/21 21:49 Schistocytes Not Reportable 09/28/21 21:49 Malaria parasites Not Reportable 09/28/21 21:49 Renzo Bodies Not Reportable 09/28/21 21:49 Hem Pathologist Commnt No 09/28/21 21:49 PT 13.1 Sec. (12.2-14.9) 09/28/21 21:49 INR 0.89 (0.87-1.13) 09/28/21 21:49 APTT 22.1 Sec. (24.2-36.6) L 09/28/21 21:49 ABG pH 7.412 pH Units (7.350-7.450) 09/30/21 04:00 POC ABG pCO2 28.7 mmHg (32.0-48.0) L 09/29/21 00:57 ABG pCO2 32.8 mm Hg 09/30/21 04:00 POC ABG pO2 228.9 mmHg (83-108) H 09/29/21 00:57 ABG pO2 130.5 mm Hg (80.0-90.0) H 09/30/21 04:00 POC ABG HCO3 18.2 09/29/21 00:57 ABG HCO3 20.4 mmol/L (20.0-26.0) 09/30/21 04:00 ABG O2 Saturation 98.6 % (95.0-99.0) 09/30/21 04:00 ABG O2 Content 18.5 (0.0-44) 09/30/21 04:00 POC ABG Base Excess -4.8 09/29/21 00:57 ABG Base Excess -3.3 mmol/L (-2.0-3.0) L 09/30/21 04:00 ABG Hemoglobin 13.4 gm/dl (14.0-18.0) L 09/30/21 04:00 ABG Oxyhemoglobin 98.9 (94-98) H 09/29/21 00:57 ABG Carboxyhemoglobin 0.8 % (0.0-5.0) 09/30/21 04:00 ABG Methemoglobin 0.5 % (0.0-1.5) 09/30/21 04:00 ABG Sodium 139.4 mmol/L (136.0-145.0) 09/29/21 00:57 ABG Potassium 3.7 mmol/L (3.40-4.50) 09/29/21 00:57 ABG Chloride 109.0 mmol/L (98-107) H 09/29/21 00:57 ABG Glucose 105 mg/dL (65-95) H 09/29/21 00:57 Oxyhemoglobin 97.3 % (95.0-99.0) 09/30/21 04:00 Carboxyhemoglobin 0 (0.5-1.5) L 09/29/21 00:57 FiO2 35 % 09/30/21 04:00 FiO2 % 80.0 09/29/21 00:57 Sodium 145 mmol/L (137-145) 09/30/21 04:33 Potassium 4.3 mmol/L (3.6-5.0) 09/30/21 04:33 Chloride 110.0 mmol/L (98-107) H 09/30/21 04:33 Carbon Dioxide 20 mmol/L (22-30) L 09/30/21 04:33 Anion Gap 19 mmol/L 09/30/21 04:33 BUN 14 mg/dL (9-20) 09/30/21 04:33 Creatinine 1.0 mg/dL (0.8-1.3) 09/30/21 04:33 Estimated GFR > 60 ml/min 09/30/21 04:33 BUN/Creatinine Ratio 14 % 09/30/21 04:33 Glucose 78 mg/dL (75-100) 09/30/21 04:33 POC Glucose 77 mg/dL (70-105) 09/30/21 00:49 Lactic Acid 1.00 mmol/L (0.7-2.0) 09/28/21 21:49 Calcium 8.5 mg/dL (8.4-10.2) 09/30/21 04:33 Total Bilirubin 0.60 mg/dL (0.1-1.2) 09/28/21 21:49 AST 35 units/L (5-40) 09/28/21 21:49 ALT 27 units/L (7-56) 09/28/21 21:49 Alkaline Phosphatase 76 units/L (35-129) 09/28/21 21:49 Total Creatine Kinase 962 units/L (55-170) H 09/28/21 21:49 Total Protein 8.2 g/dL (6.3-8.2) 09/28/21 21:49 Albumin 4.7 g/dL (3.9-5) 09/28/21 21:49 Albumin/Globulin Ratio 1.3 % 09/28/21 21:49 Arterial Blood Glucose 105 mg/dL (65-95) H 09/29/21 00:57 Urine Color Colorless (Yellow) 09/29/21 Unknown Urine Turbidity Turbid (Clear) 09/29/21 Unknown Urine pH 5.0 (5.0-7.0) 09/29/21 Unknown Ur Specific [place] 1.012 (1.003-1.030) 09/29/21 Unknown Urine Protein <15 mg/dl mg/dL (Negative) 09/29/21 Unknown Urine Glucose (UA) Neg mg/dL (Negative) 09/29/21 Unknown Urine Ketones 20 mg/dL (Negative) 09/29/21 Unknown Urine Blood Neg (Negative) 09/29/21 Unknown Urine Nitrite Neg (Negative) 09/29/21 Unknown Urine Bilirubin Neg (Negative) 09/29/21 Unknown Urine Urobilinogen < 2.0 mg/dL (<2.0) 09/29/21 Unknown Ur Leukocyte Esterase Neg (Negative) 09/29/21 Unknown Urine WBC (Auto) 150.0 /HPF (0.0-6.0) H 09/29/21 Unknown Urine RBC (Auto) 64.0 /HPF (0.0-6.0) 09/29/21 Unknown U Epithel Cells (Auto) < 1.0 /HPF (0-13.0) 09/29/21 Unknown Urine Mucus Few /HPF 09/29/21 Unknown Urine Yeast (Budding) Few /HPF 09/29/21 Unknown CSF Appearance Clear 09/28/21 00:30 CSF Color Colorless 09/28/21 00:30 CSF WBC 32 /mm3 (1-10) 09/28/21 00:30 CSF RBC 11 /mm3 (0-0) 09/28/21 00:30 CSF Seg Neutrophils 66.0 % (0-6) 09/28/21 00:30 CSF Lymphocytes % 14.0 % (40-80) 09/28/21 00:30 CSF Reactive Lymphs 0 % 09/28/21 00:30 CSF Monocytes % 18.0 % (15-45) 09/28/21 00:30 CSF Eosinophils % 2.0 % 09/28/21 00:30 CSF Basophils 0 % 09/28/21 00:30 CSF Pathologist Review C 09/28/21 00:30 CSF Glucose 78 mg/dL 09/28/21 00:30 CSF Total Protein 28 mg/dL 09/28/21 00:30 Salicylates < 0.3 mg/dL (2.8-20.0) L 09/28/21 21:49 Urine Opiates Screen Negative 09/29/21 Unknown Urine Methadone Screen Negative 09/29/21 Unknown Acetaminophen 5.0 ug/mL (10.0-30.0) L 09/28/21 21:49 Ur Barbiturates Screen Negative 09/29/21 Unknown Ur Phencyclidine Scrn Negative 09/29/21 Unknown Ur Amphetamines Screen Negative 09/29/21 Unknown U Benzodiazepines Scrn Positive 09/29/21 Unknown Urine Cocaine Screen Negative 09/29/21 Unknown U Marijuana (THC) Screen Positive 09/29/21 Unknown Drugs of Abuse Note Disclamer 09/29/21 Unknown Plasma/Serum Alcohol < 0.01 % (0-0.07) 09/28/21 21:49 Coronavirus (PCR) Negative (Negative) 09/29/21 Unknown Microbiology: Microbiology 09/28/21 21:49 Peripheral/Venous Blood Culture - Preliminary NO GROWTH AFTER 48 HOURS 09/28/21 21:55 Peripheral/Venous Blood Culture - Preliminary NO GROWTH AFTER 48 HOURS 09/29/21 00:50 Tracheal Aspirate Sputum Culture - Preliminary 09/28/21 00:30 Cerebral Spinal Fluid CSF Culture - Preliminary Warner/IV: Voiding Method Toilet Active Medications - Current Medications Current Medications: Generic Name Dose Route Start Last Admin Trade Name Freq PRN Reason Stop Dose Admin Acetaminophen 650 mg 09/29/21 02:08 Acetaminophen 325 Mg Tab PO Q6H PRN Pain MILD(1-3)/Fever >100.5/DOE Famotidine 20 mg 09/30/21 10:00 09/30/21 09:27 Famotidine 20 Mg Tab PO 20 mg QDAY IZA Administration Heparin Sodium (Porcine) 5,000 unit 09/29/21 06:00 10/01/21 06:35 Heparin 5,000 Unit/1 Ml Vial SUB-Q 5,000 unit Q8HR IZA Administration Hydrophilic Ointment 1 applic 09/28/21 21:52 Lip Therapy Vaseline TP Q2HR PRN Dry Lips Ceftriaxone Sodium 2 gm in 100 mls @ 200 mls/hr 09/29/21 06:00 10/01/21 06:49 Rocephin/Ns 2 Gm/100 Ml IV 200 mls/hr Q12H IZA Administration Protocol Vancomycin HCl 1,500 mg/ 530 mls @ 333.333 mls/hr 09/29/21 12:00 10/01/21 00:19 Sodium Chloride IV 333.333 mls/hr Q12H IZA Administration Acyclovir 800 mg/ Sodium 116 mls @ 100 mls/hr 09/29/21 14:00 10/01/21 06:35 Chloride IV 100 mls/hr Q8HR IZA Administration Protocol Levetiracetam 500 mg 09/30/21 22:00 09/30/21 21:52 Levetiracetam 500 Mg Tab PO 500 mg BID IZA Administration Magnesium Hydroxide 30 ml 09/29/21 02:17 Magnesium Hydroxide (Mom) Oral Liqd Udc PO Q4H PRN Constipation Oxycodone HCl 5 mg 09/30/21 08:47 Oxycodone 5 Mg Tab PO Q8H PRN Pain, Moderate (4-6) Senna/Docusate Sodium 1 tab 09/30/21 22:00 09/30/21 21:52 Sennosides/Docusate Sodium 8.6/50 Mg Tab PO 1 tab QHS IZA Administration Sodium Chloride 10 ml 09/29/21 10:00 09/30/21 21:52 Sodium Chloride 0.9% 10 Ml Flush Syringe IV 10 ml BID IZA Administration Sodium Chloride 10 ml 09/29/21 02:08 Sodium Chloride 0.9% 10 Ml Flush Syringe IV PRN PRN LINE FLUSH Nutrition/Malnutrition Assess - Dietary Evaluation Nutrition/Malnutrition Findings: Nutrition Notes Start: 09/29/21 12:28 Freq: Status: Active Protocol: Document 09/30/21 15:24 [facility] (Rec: 09/30/21 15:25 [facility] [id number]) Nutrition Notes Initial or Follow up Brief Note Current Diet Regular Subjective/Other Information Pt extubated this am and passed bedside swallow test. Diet advanced for lunch today. Nutrition Intervention Follow-Up By: 10/03/21 Additional Comments F/U: intakes
[2021-10-01] MEDS ORDERED: POTASSIUM CHLORIDE ER 20 MEQ TAB PO NR (10:00)
[2021-10-01] MEDS: FAMOTIDINE 20 MG TAB PO SCH (10:53)
[2021-10-01] MEDS: levETIRAcetam 500 MG TAB PO SCH ×2 (10:53→21:56)
--- NOTE | 2021-10-01 11:12 | Progress Note ---
Assessment and Plan Assessment and Plan 31-year-old -[place]ine[place] male with known history of seizure brought into the emergency room today by EMS with a complaint of possible seizures. Upon arrival in the emergency room patient was awake but was altered and nonverbal. Most of the history was obtained from EMS. EMS was said to have been called for possible seizure, Accu-Chek was said to be within normal limits however patient had a temperature of about 101F on the field. -LP is done and started on keppra and broad spectrum abs - Patient Problems # Acute encephalopathy Possibly secondary to seizure disorder/meningitis. Patient currently admitted into the intensive care unit We will continue on empiric IV antibiotics and IV fluid. We will monitor mental status. # Acute febrile illness Possibly secondary to underlying meningitis/encephalitis and or UTI We will continue on empiric IV antibiotics. Will await culture results. # History of seizure We will place on seizure precautions. Patient started on IV Keppra. EEG is pending MRI with gd is unremarkable # DVT prophylaxis Patient placed on subcutaneous heparin. # Full code status Patient is full code. Plan 1- As above 2- seizure precaution 3- EEG 4- Brain MRI is unremarkable done wo Gd 4- Maintain Keppra 5- maintain Abs until result of LP c/s is back 6- no driving , no drinking will follow Subjective Date of service: 10/01/21 Principal diagnosis: seizure Interval history: pt. is alert extubated responsive he is oriented to place and date he recall having seizure according to pt. he is with hx of seizure for few years since he started taking cocaine According to him he stopped using cocaine but had significant problem with daily heavy alcohol intake According to pt. he average 3-4 seizures a year , he continues to drive and drink . MRI is unremarkable EEG is scheduled for tomorrow Objective - Vital Sign Vital Signs - 12hr 10/01/21 10/01/21 10/01/21 00:00 04:00 05:06 Temperature 99.6 F Pulse Rate 83 Respiratory 16 Rate Blood Pressure 108/66 O2 Sat by Pulse 99 99 95 Oximetry 10/01/21 10/01/21 08:15 09:36 Temperature 98.8 F Pulse Rate 71 Respiratory 15 Rate Blood Pressure 119/59 O2 Sat by Pulse 96 97 Oximetry - General Apperance Constitutional: comfortable - EENT EENT: PERRL, mucous membranes moist - Respiratory Respiratory: chest non-tender, lungs clear, rhonchi - Cardiovascular Cardiovascular: regular rate, normal S1, normal S2 Extremities: no peripheral edema bilat, no clubbing, cyanosis - Gastrointestinal Gastrointestinal: normoactive bowel sounds - Integumentary Integumentary: normal - Neurologic Cranial nerve examination: intact Speech examination: intact Detailed motor examination: grossly full strength in - Laboratory Findings CBC and BMP: 10/01/21 07:00 10/01/21 07:00 Abnormal Lab Findings: Abnormal Labs 09/28/21 09/28/21 09/28/21 21:49 21:49 21:49 WBC 13.6 H RBC 5.32 H Hct 46.1 H [place] % (Auto) [place] # (Auto) Seg Neutrophils % Seg Neuts % (Manual) 89.0 H Lymphocytes % (Manual) 6.0 L Seg Neutrophils # Man 12.1 H Lymphocytes # (Manual) 0.8 L APTT POC ABG pCO2 POC ABG pO2 ABG pO2 ABG Base Excess ABG Hemoglobin ABG Oxyhemoglobin ABG Chloride ABG Glucose Carboxyhemoglobin Potassium Chloride Carbon Dioxide 17 L Creatinine 1.4 H Glucose 103 H Calcium Total Creatine Kinase 962 H Arterial Blood Glucose Urine WBC (Auto) Salicylates < 0.3 L Acetaminophen 09/28/21 09/28/21 09/29/21 21:49 21:49 00:57 WBC RBC Hct [place] % (Auto) [place] # (Auto) Seg Neutrophils % Seg Neuts % (Manual) Lymphocytes % (Manual) Seg Neutrophils # Man Lymphocytes # (Manual) APTT 22.1 L POC ABG pCO2 28.7 L POC ABG pO2 228.9 H ABG pO2 ABG Base Excess ABG Hemoglobin ABG Oxyhemoglobin 98.9 H ABG Chloride 109.0 H ABG Glucose 105 H Carboxyhemoglobin 0 L Potassium Chloride Carbon Dioxide Creatinine Glucose Calcium Total Creatine Kinase Arterial Blood Glucose 105 H Urine WBC (Auto) Salicylates Acetaminophen 5.0 L 09/29/21 09/30/21 09/30/21 Unknown 04:00 04:33 WBC RBC Hct [place] % (Auto) 9.2 H [place] # (Auto) 0.9 H Seg Neutrophils % 75.6 H Seg Neuts % (Manual) Lymphocytes % (Manual) Seg Neutrophils # Man Lymphocytes # (Manual) APTT POC ABG pCO2 POC ABG pO2 ABG pO2 130.5 H ABG Base Excess -3.3 L ABG Hemoglobin 13.4 L ABG Oxyhemoglobin ABG Chloride ABG Glucose Carboxyhemoglobin Potassium Chloride Carbon Dioxide Creatinine Glucose Calcium Total Creatine Kinase Arterial Blood Glucose Urine WBC (Auto) 150.0 H Salicylates Acetaminophen 09/30/21 10/01/21 04:33 07:00 WBC RBC Hct [place] % (Auto) [place] # (Auto) Seg Neutrophils % Seg Neuts % (Manual) Lymphocytes % (Manual) Seg Neutrophils # Man Lymphocytes # (Manual) APTT POC ABG pCO2 POC ABG pO2 ABG pO2 ABG Base Excess ABG Hemoglobin ABG Oxyhemoglobin ABG Chloride ABG Glucose Carboxyhemoglobin Potassium 3.0 L D Chloride 110.0 H 107.4 H Carbon Dioxide 20 L Creatinine Glucose Calcium 8.3 L Total Creatine Kinase Arterial Blood Glucose Urine WBC (Auto) Salicylates Acetaminophen
--- NOTE | 2021-10-01 14:33 | Progress Note ---
Assessment and Plan Cultures: Blood culture no growth so far CSF culture no growth so far Sputum culture no growth so far A/P: 31-year-old man past medical history known seizures admitted with seizures, fever #Acute sepsis: With fevers and leukocytosis. Possibly secondary to meningitis/encephalitis. #Seizures: Questionable meningitis/encephalitis. CSF with elevated white count, however low neutrophils and normal glucose. As such unlikely bacterial me ningitis at this time. #MICHAEL: renally dose medications Recs: -Follow-up brain MRI -Continue vancomycin, ceftriaxone pending CSF cultures. I doubt acute bacterial meningitis, should they finalize as negative ok to stop antibiotics -Stopped acyclovir given no temporal enhancement on MRI. Thank you for the consult, we will continue to follow. Burak Cabral MD [facility] ([facility]) O: [phone] F: [phone] Subjective Date of service: 10/01/21 Principal diagnosis: seizure Interval history: Afebrile with low-grade temperatures to 100.1 overnight, white count 5.4. Cultures all remain negative. Imaging personally reviewed: Brain MRI: No acute findings Objective - Exam Narrative Exam: Physical Exam: Constitutional: Intubated, sedated Head, Ears, Nose: Normocephalic, atraumatic. External ears, nose normal Eyes: Conjunctivae/corneas clear. No icterus. No ptosis. Neck: Supple, no meningeal signs Oral: ETT Cardiovascular: S1, S2 normal. Respiratory: Good air entry, clear to auscultation bilaterally GI: Soft, non-tender; bowel sounds normal. No peritoneal signs. Musculoskeletal: No pedal edema, no cyanosis. Skin: No rash or abscess Hem/Lymphatic: No palpable cervical or supraclavicular nodes. Psych: Sedated Neurological: Sedated - Constitutional Vitals: Vital Signs Temp Pulse Resp BP Pulse Ox 98.8 F 71 15 119/59 97 10/01/21 08:15 10/01/21 08:15 10/01/21 08:15 10/01/21 08:15 10/01/21 09:36 Temperature -Last 24 Hours Temperature 98.8 F Temperature 99.6 F Temperature 100.1 F Temperature 100.1 F Temperature 100.1 F - Labs CBC & Chem 7: 10/01/21 07:00 10/01/21 07:00 Labs: Abnormal lab results 10/01/21 Range/Units 07:00 Potassium 3.0 L D (3.6-5.0) mmol/L Chloride 107.4 H (98-107) mmol/L Calcium 8.3 L (8.4-10.2) mg/dL
--- NOTE | 2021-10-01 19:27 | Progress Note ---
Assessment and Plan 31-year-old -[place] male with known history of seizure brought into the emergency room by EMS with a complaint of possible seizures. Upon arrival in the emergency room patient was awake but was altered and nonverbal. Most of the history was obtained from EMS. EMS was said to have been called for possible seizure, Accu-Chek was said to be within normal limits however patient had a temperature of about 101F on the field. Patient was found to be quite combative upon arrival in the emergency room and was uncooperative for evaluation. Patient was subsequently intubated for airway protection. Work-up in the emergency room , lab reveals a leukocytosis of 13.6, CO2 of 17, creatinine of 1.4. Urinalysis reveals turbid urine with 150 WBC. CSF shows WBC of 32, RBC 11, neutrophils 66, monocytes 18, monocyte 14, glucose 78, total protein 28. UDS was significant for marijuana and benzodiazepine. CT of the head, cervical spine and chest x-ray were unremarkable. Patient is being treated for possible meningitis/encephalitis. He was also placed on IV Keppra for seizure disorder. Patient intubated and extubated. Patient transfered to medical floor. patient alert, awake. No complaint of chest pain, shortness of breath or cough. Patient resting on room air. O2 saturation 99%. Running low grade temp at times. No leukocytosis. Patients blood pressure 119/64, Pulse 63 , respirations 18. Patient is on ceftriaxone, vancomycin ,S/C heparin and famotidine. - Patient Problems (1) Acute encephalopathy Current Visit: Yes Status: Acute Plan to address problem: Management as per primary care and neurology. (2) Acute febrile illness Current Visit: Yes Status: Acute Plan to address problem: PPatient is on ceftriaxone and vancomycine. (3) History of seizure Current Visit: Yes Status: Acute Plan to address problem: Management as per neurology. (4) History of mechanical ventilation Current Visit: Yes Status: Acute Plan to address problem: Patient intubated for air way protection during this admission and extubated. Subjective Date of service: 10/01/21 Principal diagnosis: seizure Interval history: 31-year-old -[place] male with known history of seizure brought into the emergency room by EMS with a complaint of possible seizures. Upon arrival in the emergency room patient was awake but was altered and nonverbal. Most of the history was obtained from EMS. EMS was said to have been called for possible seizure, Accu-Chek was said to be within normal limits however patient had a temperature of about 101F on the field. Patient was found to be quite combative upon arrival in the emergency room and was uncooperative for evaluation. Patient was subsequently intubated for airway protection. Work-up in the emergency room , lab reveals a leukocytosis of 13.6, CO2 of 17, creatinine of 1.4. Urinalysis reveals turbid urine with 150 WBC. CSF shows WBC of 32, RBC 11, neutrophils 66, monocytes 18, monocyte 14, glucose 78, total protein 28. UDS was significant for marijuana and benzodiazepine. CT of the head, cervical spine and chest x-ray were unremarkable. Patient is being treated for possible meningitis/encephalitis. He was also placed on IV Keppra for seizure disorder. Patient intubated and extubated. Patient transfered to medical floor. patient alert, awake. No complaint of chest pain, shortness of breath or cough. Patient resting on room air. O2 saturation 99%. Running low grade temp at times. No leukocytosis. Patients blood pressure 119/64, Pulse 63 , respirations 18. Patient is on ceftriaxone, vancomycin ,S/C heparin and famotidine. Objective Vital Signs - 12hr 10/01/21 10/01/21 10/01/21 08:00 08:15 09:36 Temperature 98.8 F Pulse Rate 71 Respiratory 15 Rate Blood Pressure 119/59 O2 Sat by Pulse 96 96 97 Oximetry 10/01/21 10/01/21 12:00 12:06 Temperature 99.6 F Pulse Rate 84 Respiratory 18 Rate Blood Pressure 119/64 O2 Sat by Pulse 96 96 Oximetry Constitutional: no acute distress, alert Eyes: non-icteric ENT: oropharynx moist Neck: supple, no lymphadenopathy, no JVD Effort: normal Ascultation: Bilateral: diminished breath sounds Cardiovascular: regular rate and rhythm, other (S1,S2) Gastrointestinal: normoactive bowel sounds Integumentary: normal Extremities: no cyanosis, no edema Neurologic: non-focal exam, pupils equal and round, CN II-XII normal Psychiatric: mood appropriate CBC and BMP: 10/01/21 07:00 10/01/21 07:00 ABG, PT/INR, D-dimer: ABG ABG pH 7.412 pH Units (7.350-7.450) 11/30/21 04:00 POC ABG pCO2 28.7 mmHg (32.0-48.0) L 09/29/21 00:57 ABG pCO2 32.8 mm Hg 09/30/21 04:00 POC ABG pO2 228.9 mmHg (83-108) H 09/29/21 00:57 ABG pO2 130.5 mm Hg (80.0-90.0) H 09/30/21 04:00 POC ABG HCO3 18.2 09/29/21 00:57 ABG O2 Saturation 98.6 % (95.0-99.0) 09/30/21 04:00 PT/INR, D-dimer PT 13.1 Sec. (12.2-14.9) 09/28/21 21:49 INR 0.89 (0.87-1.13) 09/28/21 21:49 Abnormal lab findings: Abnormal Labs 09/28/21 09/28/21 09/28/21 21:49 21:49 21:49 WBC 13.6 H RBC 5.[address] [facility] % (Auto) [facility] # (Auto) Seg Neutrophils % Seg Neuts % (Manual) 89.0 H Lymphocytes % (Manual) 6.0 L Seg Neutrophils # Man 12.1 H Lymphocytes # (Manual) 0.8 L APTT POC ABG pCO2 POC ABG pO2 ABG pO2 ABG Base Excess ABG Hemoglobin ABG Oxyhemoglobin ABG Chloride ABG Glucose Carboxyhemoglobin Potassium Chloride Carbon Dioxide 17 L Creatinine 1.4 H Glucose 103 H Calcium Total Creatine Kinase 962 H Arterial Blood Glucose Urine WBC (Auto) Salicylates < 0.3 L Acetaminophen 09/28/21 09/28/21 09/29/21 21:49 21:49 00:[address] [facility] % (Auto) [facility] # (Auto) Seg Neutrophils % Seg Neuts % (Manual) Lymphocytes % (Manual) Seg Neutrophils # Man Lymphocytes # (Manual) APTT 22.1 L POC ABG pCO2 28.7 L POC ABG pO2 228.9 H ABG pO2 ABG Base Excess ABG Hemoglobin ABG Oxyhemoglobin 98.9 H ABG Chloride 109.0 H ABG Glucose 105 H Carboxyhemoglobin 0 L Potassium Chloride Carbon Dioxide Creatinine Glucose Calcium Total Creatine Kinase Arterial Blood Glucose 105 H Urine WBC (Auto) Salicylates Acetaminophen 5.0 L 09/29/21 09/30/21 09/30/21 Unknown 04:00 04:[address] [facility] % (Auto) 9.[address] [facility] # (Auto) 0.9 H Seg Neutrophils % 75.6 H Seg Neuts % (Manual) Lymphocytes % (Manual) Seg Neutrophils # Man Lymphocytes # (Manual) APTT POC ABG pCO2 POC ABG pO2 ABG pO2 130.5 H ABG Base Excess -3.3 L ABG Hemoglobin 13.4 L ABG Oxyhemoglobin ABG Chloride ABG Glucose Carboxyhemoglobin Potassium Chloride Carbon Dioxide Creatinine Glucose Calcium Total Creatine Kinase Arterial Blood Glucose Urine WBC (Auto) 150.0 H Salicylates Acetaminophen 09/30/21 10/01/21 04:33 07:[address] [facility] % (Auto) [facility] # (Auto) Seg Neutrophils % Seg Neuts % (Manual) Lymphocytes % (Manual) Seg Neutrophils # Man Lymphocytes # (Manual) APTT POC ABG pCO2 POC ABG pO2 ABG pO2 ABG Base Excess ABG Hemoglobin ABG Oxyhemoglobin ABG Chloride ABG Glucose Carboxyhemoglobin Potassium 3.0 L D Chloride 110.0 H 107.4 H Carbon Dioxide 20 L Creatinine Glucose Calcium 8.3 L Total Creatine Kinase Arterial Blood Glucose Urine WBC (Auto) Salicylates Acetaminophen Chest x-ray: report reviewed, image reviewed Additional Studies: CHEST 1 VIEW 09/30/2021 3:45 AM INDICATION / CLINICAL INFORMATION: Follow-up respiratory failure. COMPARISON: 09/28/21. FINDINGS: SUPPORT DEVICES: The position of the endotracheal tube has not changed significantly. HEART / MEDIASTINUM: The heart size and pulmonary vasculature are normal. LUNGS / PLEURA: Mild patchy parenchymal disease in the left lower lung is new. The right lung is clear. No pneumothorax. ADDITIONAL FINDINGS: No significant additional findings. IMPRESSION: Interval development of mild patchy pneumonia in the left lower lung. CHEST 1 VIEW 09/28/21 INDICATION / CLINICAL INFORMATION: ETT placement. COMPARISON: None available. FINDINGS: SUPPORT DEVICES: Endotracheal tube noted with tip approximately 3 cm above the elena. HEART / MEDIASTINUM: No significant abnormality. LUNGS / PLEURA: No significant pulmonary or pleural abnormality. No pneumothorax. ADDITIONAL FINDINGS: No significant additional findings. IMPRESSION: 1. Endotracheal tube with tip noted approximately 3 cm above the elena. 2. No acute cardiopulmonary abnormality.
[2021-10-01] MEDS: SENNOSIDES/DOCUSATE SODIUM 8.6/50 MG TAB PO SCH (21:56)
[2021-10-02] MEDS: HEPARIN 5,000 UNIT/1 ML VIAL SUB-Q SCH ×2 (06:12→13:23)
[2021-10-02] MEDS: ACYCLOVIR 800 MG in SODIUM CHLORIDE 0.9% 100 ML IV SCH (06:12)
[2021-10-02] MEDS: cefTRIAXone/NS 2 GM/100 ML 2 GM/100 ML BAG IV SCH ×2 (06:13→19:10)
--- NOTE | 2021-10-02 07:59 | Progress Note ---
Assessment and Plan Assessment and plan: This is a 31-year-old -[place] male with seizure disorder, cocaine abuse and possible EtOH abuse who presented to emergency department on 09/28 via EMS with complaints of possible seizures. Upon arrival to the emergency department patient was awake but altered and nonverbal. Patient was febrile in the field via EMS. In the emergency department patient was combative and uncooperative and subsequently intubated for airway protection. Work-up in the emergency department revealed leukocytosis, metabolic acidosis, elevated BUN/creatinine, UA revealed pyuria, CSF was unremarkable UDS was significant for marijuana and benzodiazepine. Patient was admitted to the hospital service for possible meningitis and seizures with consults to ID, CCM and neurology. 09/29: Currently intubated on MV. Fentanyl and propofol running at 1mcg/kg/hr and 30mcg/kg/min respectively. Neurology evaluated patient at the bedside. Awaiting MRI. We will continue with current plan as stated in H&P. 09/30: extubated early this am. MRI brain completed. abx per ID until pending CSF cultures 10/01: MRI brain completed, no findings consistent with seizure. Neuro input noted. Also discussed alcohol cessation as this could have very well caused patient seizures. Patient should be on isolation since meningitis is suspected. D/w RN about this. LP culture and sensitivities pending. continue empiric antibiotics.Will follow ID recs. 10/02: ID recommended d/c acyclovir. Continue vanc and rocephin at this time until spinal cultures finalize. Afebrile currently, no complaints. Neuro: Seizures, h/o cocaine and possible etoh abuse -Neurology consulted, appreciate recommendations -MRI brain showed no findings to explain seizures or sequele of seizures -EEG completed->see chart for details -Aspiration and seizure precautions -consuling on cessation of etoh and cocaine use -keppra - behavioral health counseling +15 min re: ETOH abuse -As needed analgesia Cardio: SR-ST -Blood pressure monitoring per protocol Resp: Acute hypoxic respiratory failure -CCM consulted, appreciate recommendations -Intubated on 09/28 and extubated on 09/30 -Supplemental oxygen as needed -Pulmonary hygiene -SPO2 monitor per protocol GI: NAD -PPI -24-hour +184 -Regular diet -Passed bedside swallow -BR: Senokot : Acute kidney injury, hyperkalemia, metabolic acidosis -likely secondary to vasomotor nephropathy -Trend CBC -Consider nephrology consult if kidney function worsens -Renally dose medications -Trend BMP Endo: NAD -Avoid hypoglycemia ID: Acute sepsis, r/o meningitis/encephailitis -presented wiht fevers, leukocytosis, states he was never vaccinated for meningitis. -ID consulted, appreciate recommendations -LP on admit -CSF with elevated WBC but normal glucose and low neutrophils -cultures and sensitivities pending -abx per ID: doubt acute bacterial meningitis, can d/.c vancomycin+ceftriaxone once spinal fluid cx finalize, dc acyclovir -follow fever and wbc curve Heme: leukocytosis (resolved) -Trend CBC -transfuse or hbg <7 -SCDs to BLE -heparin subq #Advance care planning Disease education conducted, care plan discussed, diagnoses discussed, prognosis discussed, patient is full code, patient acknowledges understanding and agree with care plan, +30 minutes. History Interval history: No complaints this morning on encounter. Hospitalist Physical - Physical exam Narrative exam: Physical Exam: VITAL SIGNS: Reviewed. GENERAL: The patient appears normally developed, Vital signs as documented. HEAD: No signs of head trauma. EYES: Pupils are equal. Extraocular motions intact. EARS: Hearing grossly intact. MOUTH: Oropharynx is normal. NECK: No adenopathy, no JVD. CHEST: Chest with clear breath sounds bilaterally. No wheezes, rales, or rhonchi. CARDIAC: Regular rate and rhythm. S1 and S2, without murmurs, gallops, or rubs. VASCULAR: No Edema. Peripheral pulses normal and equal in all extremities. ABDOMEN: Soft, non tender and non distended. No rebound or guarding, and no masses palpated. Bowel Sounds normal. MUSCULOSKELETAL: Good range of motion of all major joints. Extremities without clubbing, cyanosis or edema. NEUROLOGIC EXAM: Alert and oriented x 4. no focal sensory or strength deficits. PSYCHIATRIC: Mood normal. SKIN: detail exam as documented in skin assessment - Constitutional Vitals: Temp Pulse Resp BP Pulse Ox 99.1 F 65 18 124/77 100 10/02/21 04:26 10/02/21 04:26 10/02/21 04:26 10/02/21 04:26 10/02/21 04:26 General appearance: Present: no acute distress, well-nourished Results - Labs CBC & Chem 7: 10/01/21 07:00 10/01/21 07:00 Labs: Laboratory Last Values WBC 5.4 K/mm3 (4.5-11.0) 10/01/21 07:00 RBC 4.42 M/mm3 (3.65-5.03) 10/01/21 07:00 Hgb 12.7 gm/dl (11.8-15.2) 10/01/21 07:00 Hct 38.7 % (35.5-45.6) 10/01/21 07:00 MCV 88 fl (84-94) 10/01/21 07:00 MCH 29 pg (28-32) 10/01/21 07:00 MCHC 33 % (32-34) 10/01/21 07:00 RDW 14.1 % (13.2-15.2) 10/01/21 07:00 Plt Count 190 K/mm3 (140-440) 10/01/21 07:00 Lymph % (Auto) 14.9 % (13.4-35.0) 09/30/21 04:33 [place] % (Auto) 9.2 % (0.0-7.3) H 09/30/21 04:33 Eos % (Auto) 0.0 % (0.0-4.3) 09/30/21 04:33 Baso % (Auto) 0.3 % (0.0-1.8) 09/30/21 04:33 Lymph # (Auto) 1.5 K/mm3 (1.2-5.4) 09/30/21 04:33 [place] # (Auto) 0.9 K/mm3 (0.0-0.8) H 09/30/21 04:33 Eos # (Auto) 0.0 K/mm3 (0.0-0.4) 09/30/21 04:33 Baso # (Auto) 0.0 K/mm3 (0.0-0.1) 09/30/21 04:33 Add Manual Diff Complete 09/28/21 21:49 Total Counted 100 09/28/21 21:49 Seg Neutrophils % 75.6 % (40.0-70.0) H 09/30/21 04:33 Seg Neuts % (Manual) 89.0 % (40.0-70.0) H 09/28/21 21:49 Lymphocytes % (Manual) 6.0 % (13.4-35.0) L 09/28/21 21:49 Monocytes % (Manual) 5.0 % (0.0-7.3) 09/28/21 21:49 Nucleated RBC % Not Reportable 09/28/21 21:49 Seg Neutrophils # 7.7 K/mm3 (1.8-7.7) 09/30/21 04:33 Seg Neutrophils # Man 12.1 K/mm3 (1.8-7.7) H 09/28/21 21:49 Band Neutrophils # 0.0 K/mm3 09/28/21 21:49 Lymphocytes # (Manual) 0.8 K/mm3 (1.2-5.4) L 09/28/21 21:49 Abs React Lymphs (Man) 0.0 K/mm3 09/28/21 21:49 Monocytes # (Manual) 0.7 K/mm3 (0.0-0.8) 09/28/21 21:49 Eosinophils # (Manual) 0.0 K/mm3 (0.0-0.4) 09/28/21 21:49 Basophils # (Manual) 0.0 K/mm3 (0.0-0.1) 09/28/21 21:49 Metamyelocytes # 0.0 K/mm3 09/28/21 21:49 Myelocytes # 0.0 K/mm3 09/28/21 21:49 Promyelocytes # 0.0 K/mm3 09/28/21 21:49 Blast Cells # 0.0 K/mm3 09/28/21 21:49 WBC Morphology Not Reportable 09/28/21 21:49 Hypersegmented Neuts Not Reportable 09/28/21 21:49 Hyposegmented Neuts Not Reportable 09/28/21 21:49 Hypogranular Neuts Not Reportable 09/28/21 21:49 Smudge Cells Not Reportable 09/28/21 21:49 Toxic Granulation Not Reportable 09/28/21 21:49 Toxic Vacuolation Not Reportable 09/28/21 21:49 Dohle Bodies Not Reportable 09/28/21 21:49 Pelger-Huet Anomaly Not Reportable 09/28/21 21:49 Miya Rods Not Reportable 09/28/21 21:49 Platelet Estimate Not Reportable 09/28/21 21:49 Clumped Platelets Not Reportable 09/28/21 21:49 Plt Clumps, EDTA Not Reportable 09/28/21 21:49 Large Platelets Not Reportable 09/28/21 21:49 Giant Platelets Not Reportable 09/28/21 21:49 Platelet Satelliting Not Reportable 09/28/21 21:49 Plt Morphology Comment Not Reportable 09/28/21 21:49 RBC Morphology Normal 09/28/21 21:49 Dimorphic RBCs Not Reportable 09/28/21 21:49 Polychromasia Not Reportable 09/28/21 21:49 Hypochromasia Not Reportable 09/28/21 21:49 Poikilocytosis Not Reportable 09/28/21 21:49 Anisocytosis Not Reportable 09/28/21 21:49 Microcytosis Not Reportable 09/28/21 21:49 Macrocytosis Not Reportable 09/28/21 21:49 Spherocytes Not Reportable 09/28/21 21:49 Pappenheimer Bodies Not Reportable 09/28/21 21:49 Sickle Cells Not Reportable 09/28/21 21:49 Target Cells Not Reportable 09/28/21 21:49 Tear Drop Cells Not Reportable 09/28/21 21:49 Ovalocytes Not Reportable 09/28/21 21:49 Helmet Cells Not Reportable 09/28/21 21:49 [place] Bodies Not Reportable 09/28/21 21:49 [place] Rings Not Reportable 09/28/21 21:49 [place] Cells Not Reportable 09/28/21 21:49 Bite Cells Not Reportable 09/28/21 21:49 Crenated Cell Not Reportable 09/28/21 21:49 Elliptocytes Not Reportable 09/28/21 21:49 Acanthocytes (Spur) Not Reportable 09/28/21 21:49 Rouleaux Not Reportable 09/28/21 21:49 Hemoglobin C Crystals Not Reportable 09/28/21 21:49 Schistocytes Not Reportable 09/28/21 21:49 Malaria parasites Not Reportable 09/28/21 21:49 Renzo Bodies Not Reportable 09/28/21 21:49 Hem Pathologist Commnt No 09/28/21 21:49 PT 13.1 Sec. (12.2-14.9) 09/28/21 21:49 INR 0.89 (0.87-1.13) 09/28/21 21:49 APTT 22.1 Sec. (24.2-36.6) L 09/28/21 21:49 ABG pH 7.412 pH Units (7.350-7.450) 09/30/21 04:00 POC ABG pCO2 28.7 mmHg (32.0-48.0) L 09/29/21 00:57 ABG pCO2 32.8 mm Hg 09/30/21 04:00 POC ABG pO2 228.9 mmHg (83-108) H 09/29/21 00:57 ABG pO2 130.5 mm Hg (80.0-90.0) H 09/30/21 04:00 POC ABG HCO3 18.2 09/29/21 00:57 ABG HCO3 20.4 mmol/L (20.0-26.0) 09/30/21 04:00 ABG O2 Saturation 98.6 % (95.0-99.0) 09/30/21 04:00 ABG O2 Content 18.5 (0.0-44) 09/30/21 04:00 POC ABG Base Excess -4.8 09/29/21 00:57 ABG Base Excess -3.3 mmol/L (-2.0-3.0) L 09/30/21 04:00 ABG Hemoglobin 13.4 gm/dl (14.0-18.0) L 09/30/21 04:00 ABG Oxyhemoglobin 98.9 (94-98) H 09/29/21 00:57 ABG Carboxyhemoglobin 0.8 % (0.0-5.0) 09/30/21 04:00 ABG Methemoglobin 0.5 % (0.0-1.5) 09/30/21 04:00 ABG Sodium 139.4 mmol/L (136.0-145.0) 09/29/21 00:57 ABG Potassium 3.7 mmol/L (3.40-4.50) 09/29/21 00:57 ABG Chloride 109.0 mmol/L (98-107) H 09/29/21 00:57 ABG Glucose 105 mg/dL (65-95) H 09/29/21 00:57 Oxyhemoglobin 97.3 % (95.0-99.0) 09/30/21 04:00 Carboxyhemoglobin 0 (0.5-1.5) L 09/29/21 00:57 FiO2 35 % 09/30/21 04:00 FiO2 % 80.0 09/29/21 00:57 Sodium 141 mmol/L (137-145) 10/01/21 07:00 Potassium 3.0 mmol/L (3.6-5.0) L D 10/01/21 07:00 Chloride 107.4 mmol/L (98-107) H 10/01/21 07:00 Carbon Dioxide 24 mmol/L (22-30) 10/01/21 07:00 Anion Gap 13 mmol/L 10/01/21 07:00 BUN 10 mg/dL (9-20) 10/01/21 07:00 Creatinine 1.0 mg/dL (0.8-1.3) 10/01/21 07:00 Estimated GFR > 60 ml/min 10/01/21 07:00 BUN/Creatinine Ratio 10 % 10/01/21 07:00 Glucose 96 mg/dL (75-100) 10/01/21 07:00 POC Glucose 120 mg/dL (70-105) H 10/01/21 21:27 Lactic Acid 1.00 mmol/L (0.7-2.0) 09/28/21 21:49 Calcium 8.3 mg/dL (8.4-10.2) L 10/01/21 07:00 Total Bilirubin 0.60 mg/dL (0.1-1.2) 09/28/21 21:49 AST 35 units/L (5-40) 09/28/21 21:49 ALT 27 units/L (7-56) 09/28/21 21:49 Alkaline Phosphatase 76 units/L (35-129) 09/28/21 21:49 Total Creatine Kinase 962 units/L (55-170) H 09/28/21 21:49 Total Protein 8.2 g/dL (6.3-8.2) 09/28/21 21:49 Albumin 4.7 g/dL (3.9-5) 09/28/21 21:49 Albumin/Globulin Ratio 1.3 % 09/28/21 21:49 Arterial Blood Glucose 105 mg/dL (65-95) H 09/29/21 00:57 Urine Color Colorless (Yellow) 09/29/21 Unknown Urine Turbidity Turbid (Clear) 09/29/21 Unknown Urine pH 5.0 (5.0-7.0) 09/29/21 Unknown Ur Specific [place] 1.012 (1.003-1.030) 09/29/21 Unknown Urine Protein <15 mg/dl mg/dL (Negative) 09/29/21 Unknown Urine Glucose (UA) Neg mg/dL (Negative) 09/29/21 Unknown Urine Ketones 20 mg/dL (Negative) 09/29/21 Unknown Urine Blood Neg (Negative) 09/29/21 Unknown Urine Nitrite Neg (Negative) 09/29/21 Unknown Urine Bilirubin Neg (Negative) 09/29/21 Unknown Urine Urobilinogen < 2.0 mg/dL (<2.0) 09/29/21 Unknown Ur Leukocyte Esterase Neg (Negative) 09/29/21 Unknown Urine WBC (Auto) 150.0 /HPF (0.0-6.0) H 09/29/21 Unknown Urine RBC (Auto) 64.0 /HPF (0.0-6.0) 09/29/21 Unknown U Epithel Cells (Auto) < 1.0 /HPF (0-13.0) 09/29/21 Unknown Urine Mucus Few /HPF 09/29/21 Unknown Urine Yeast (Budding) Few /HPF 09/29/21 Unknown CSF Appearance Clear 09/28/21 00:30 CSF Color Colorless 09/28/21 00:30 CSF WBC 32 /mm3 (1-10) 09/28/21 00:30 CSF RBC 11 /mm3 (0-0) 09/28/21 00:30 CSF Seg Neutrophils 66.0 % (0-6) 09/28/21 00:30 CSF Lymphocytes % 14.0 % (40-80) 09/28/21 00:30 CSF Reactive Lymphs 0 % 09/28/21 00:30 CSF Monocytes % 18.0 % (15-45) 09/28/21 00:30 CSF Eosinophils % 2.0 % 09/28/21 00:30 CSF Basophils 0 % 09/28/21 00:30 CSF Pathologist Review C 09/28/21 00:30 CSF Glucose 78 mg/dL 09/28/21 00:30 CSF Total Protein 28 mg/dL 09/28/21 00:30 Vancomycin Trough 20.6 ug/mL (5.0-20.0) H 10/02/21 04:22 Salicylates < 0.3 mg/dL (2.8-20.0) L 09/28/21 21:49 Urine Opiates Screen Negative 09/29/21 Unknown Urine Methadone Screen Negative 09/29/21 Unknown Acetaminophen 5.0 ug/mL (10.0-30.0) L 09/28/21 21:49 Ur Barbiturates Screen Negative 09/29/21 Unknown Ur Phencyclidine Scrn Negative 09/29/21 Unknown Ur Amphetamines Screen Negative 09/29/21 Unknown U Benzodiazepines Scrn Positive 09/29/21 Unknown Urine Cocaine Screen Negative 09/29/21 Unknown U Marijuana (THC) Screen Positive 09/29/21 Unknown Drugs of Abuse Note Disclamer 09/29/21 Unknown Plasma/Serum Alcohol < 0.01 % (0-0.07) 09/28/21 21:49 Coronavirus (PCR) Negative (Negative) 09/29/21 Unknown Microbiology: Microbiology 09/28/21 21:49 Peripheral/Venous Blood Culture - Preliminary NO GROWTH AFTER 72 HOURS 09/28/21 21:55 Peripheral/Venous Blood Culture - Preliminary NO GROWTH AFTER 72 HOURS 09/28/21 00:30 Cerebral Spinal Fluid CSF Culture - Preliminary Warner/IV: Voiding Method Urinal Active Medications - Current Medications Current Medications: Generic Name Dose Route Start Last Admin Trade Name Freq PRN Reason Stop Dose Admin Acetaminophen 650 mg 09/29/21 02:08 Acetaminophen 325 Mg Tab PO Q6H PRN Pain MILD(1-3)/Fever >100.5/DOE Famotidine 20 mg 09/30/21 10:00 10/01/21 10:53 Famotidine 20 Mg Tab PO 20 mg QDAY IZA Administration Heparin Sodium (Porcine) 5,000 unit 09/29/21 06:00 10/02/21 06:12 Heparin 5,000 Unit/1 Ml Vial SUB-Q 5,000 unit Q8HR IZA Administration Hydrophilic Ointment 1 applic 09/28/21 21:52 Lip Therapy Vaseline TP Q2HR PRN Dry Lips Ceftriaxone Sodium 2 gm in 100 mls @ 200 mls/hr 09/29/21 06:00 10/02/21 06:13 Rocephin/Ns 2 Gm/100 Ml IV 200 mls/hr Q12H IZA Administration Protocol Vancomycin HCl 1,500 mg/ 530 mls @ 333.333 mls/hr 09/29/21 12:00 10/01/21 23:47 Sodium Chloride IV 333.333 mls/hr Q12H IZA Administration Levetiracetam 500 mg 09/30/21 22:00 10/01/21 21:56 Levetiracetam 500 Mg Tab PO 500 mg BID IZA Administration Magnesium Hydroxide 30 ml 09/29/21 02:17 Magnesium Hydroxide (Mom) Oral Liqd Udc PO Q4H PRN Constipation Oxycodone HCl 5 mg 09/30/21 08:47 Oxycodone 5 Mg Tab PO Q8H PRN Pain, Moderate (4-6) Senna/Docusate Sodium 1 tab 09/30/21 22:00 10/01/21 21:56 Sennosides/Docusate Sodium 8.6/50 Mg Tab PO 1 tab QHS IZA Administration Sodium Chloride 10 ml 09/29/21 10:00 10/01/21 21:57 Sodium Chloride 0.9% 10 Ml Flush Syringe IV 10 ml BID IZA Administration Sodium Chloride 10 ml 09/29/21 02:08 Sodium Chloride 0.9% 10 Ml Flush Syringe IV PRN PRN LINE FLUSH Nutrition/Malnutrition Assess - Dietary Evaluation Nutrition/Malnutrition Findings: Nutrition Notes Start: 09/29/21 12:28 Freq: Status: Active Protocol: Document 09/30/21 15:24 [facility] (Rec: 09/30/21 15:25 [facility] [email or web address]) Nutrition Notes Initial or Follow up Brief Note Current Diet Regular Subjective/Other Information Pt extubated this am and passed bedside swallow test. Diet advanced for lunch today. Nutrition Intervention Follow-Up By: 10/03/21 Additional Comments F/U: intakes
--- NOTE | 2021-10-02 10:50 | Progress Note ---
Assessment and Plan Acute hypoxemic resp failure s/p MVS Fevers, possible meningitis/encephalaitis Acute renal failure Metabolic acidosis Seizures - discharge planning ok pulmonary-rollins - neurology evaluation negative for acute process so far - de-escalate AB's per ID recommendations - Acyclovir discontinued and neuro imaging negative for classic pathognomonic features - continue care as below for now; - continue empiric meningitis / encephalitis - continue empiric Keppra as AED - prn supplemental oxygen to keep O2 sats > 90% - prn bronchodilators (MAHESH) with pulm hygiene per RT - avoid nephrotoxins, renally dose all medications - mobility protocols to prevent pressure ulcers - PT/OT as tolerated - Wound care per RN/WCT - accuchecks with glycemic control per SSI for target blood glucose < 180 mg/dL - tobacco abstinence strongly counseled at the bedside - home oxygen evaluation at discharge - GI & VTE prophylaxis - Flu & pneumovax per protocol - continue other care per attending / other consultants - prn analgesia per pain score ... re-evaluate in am & prn Subjective Date of service: 10/02/21 Principal diagnosis: Acute hypoxemic resp failure; Fevers; AMS; MICHAEL; Metabolic acidosis; Seizure Interval history: Patient is seen today for: Acute hypoxemic resp failure; Fevers; possible meningitis/encephalaitis; MICHAEL; Acute Metabolic acidosis Seen and examined at bedside; 24hour events reviewed; nursing and respiratory care staff consulted; no adverse overnight events reported to me; resting peacefully in bed; up in chair; A&O X 3; denies acute chest pains or palpitations; no seizures Objective Vital Signs - 12hr 10/02/21 10/02/21 00:00 04:26 Temperature 99.1 F Pulse Rate 65 Respiratory 18 Rate Blood Pressure 124/77 O2 Sat by Pulse 96 100 Oximetry Constitutional: no acute distress Eyes: non-icteric ENT: oropharynx moist Neck: supple, no lymphadenopathy, no JVD Effort: normal Ascultation: Bilateral: clear Percussion: Bilateral: not dull Cardiovascular: regular rate and rhythm, other (S1,S2) Gastrointestinal: normoactive bowel sounds, soft, non-tender, non-distended Integumentary: normal Extremities: no cyanosis, no edema, pulses normal, no ischemia or petechiae Neurologic: non-focal exam (grossly), pupils equal and round, CN II-XII normal, motor strength normal and Psychiatric: mood appropriate, affect normal CBC and BMP: 10/01/21 07:00 10/01/21 07:00 ABG, PT/INR, D-dimer: ABG ABG pH 7.412 pH Units (7.350-7.450) 09/30/21 04:00 POC ABG pCO2 28.7 mmHg (32.0-48.0) L 09/29/21 00:57 ABG pCO2 32.8 mm Hg 09/30/21 04:00 POC ABG pO2 228.9 mmHg (83-108) H 09/29/21 00:57 ABG pO2 130.5 mm Hg (80.0-90.0) H 09/30/21 04:00 POC ABG HCO3 18.2 09/29/21 00:57 ABG O2 Saturation 98.6 % (95.0-99.0) 09/30/21 04:00 PT/INR, D-dimer PT 13.1 Sec. (12.2-14.9) 09/28/21 21:49 INR 0.89 (0.87-1.13) 09/28/21 21:49 Abnormal lab findings: Abnormal Labs 09/28/21 09/28/21 09/28/21 21:49 21:49 21:49 WBC 13.6 H RBC 5.32 H Hct 46.1 H [place] % (Auto) [place] # (Auto) Seg Neutrophils % Seg Neuts % (Manual) 89.0 H Lymphocytes % (Manual) 6.0 L Seg Neutrophils # Man 12.1 H Lymphocytes # (Manual) 0.8 L APTT POC ABG pCO2 POC ABG pO2 ABG pO2 ABG Base Excess ABG Hemoglobin ABG Oxyhemoglobin ABG Chloride ABG Glucose Carboxyhemoglobin Potassium Chloride Carbon Dioxide 17 L Creatinine 1.4 H Glucose 103 H POC Glucose Calcium Total Creatine Kinase 962 H Arterial Blood Glucose Urine WBC (Auto) Vancomycin Trough Salicylates < 0.3 L Acetaminophen 09/28/21 09/28/21 09/29/21 21:49 21:49 00:57 WBC RBC Hct [place] % (Auto) [place] # (Auto) Seg Neutrophils % Seg Neuts % (Manual) Lymphocytes % (Manual) Seg Neutrophils # Man Lymphocytes # (Manual) APTT 22.1 L POC ABG pCO2 28.7 L POC ABG pO2 228.9 H ABG pO2 ABG Base Excess ABG Hemoglobin ABG Oxyhemoglobin 98.9 H ABG Chloride 109.0 H ABG Glucose 105 H Carboxyhemoglobin 0 L Potassium Chloride Carbon Dioxide Creatinine Glucose POC Glucose Calcium Total Creatine Kinase Arterial Blood Glucose 105 H Urine WBC (Auto) Vancomycin Trough Salicylates Acetaminophen 5.0 L 09/29/21 09/30/21 09/30/21 Unknown 04:00 04:33 WBC RBC Hct [place] % (Auto) 9.2 H [place] # (Auto) 0.9 H Seg Neutrophils % 75.6 H Seg Neuts % (Manual) Lymphocytes % (Manual) Seg Neutrophils # Man Lymphocytes # (Manual) APTT POC ABG pCO2 POC ABG pO2 ABG pO2 130.5 H ABG Base Excess -3.3 L ABG Hemoglobin 13.4 L ABG Oxyhemoglobin ABG Chloride ABG Glucose Carboxyhemoglobin Potassium Chloride Carbon Dioxide Creatinine Glucose POC Glucose Calcium Total Creatine Kinase Arterial Blood Glucose Urine WBC (Auto) 150.0 H Vancomycin Trough Salicylates Acetaminophen 09/30/21 10/01/21 10/01/21 04:33 07:00 21:27 WBC RBC Hct [place] % (Auto) [place] # (Auto) Seg Neutrophils % Seg Neuts % (Manual) Lymphocytes % (Manual) Seg Neutrophils # Man Lymphocytes # (Manual) APTT POC ABG pCO2 POC ABG pO2 ABG pO2 ABG Base Excess ABG Hemoglobin ABG Oxyhemoglobin ABG Chloride ABG Glucose Carboxyhemoglobin Potassium 3.0 L D Chloride 110.0 H 107.4 H Carbon Dioxide 20 L Creatinine Glucose POC Glucose 120 H Calcium 8.3 L Total Creatine Kinase Arterial Blood Glucose Urine WBC (Auto) Vancomycin Trough Salicylates Acetaminophen 10/02/21 04:22 WBC RBC Hct [place] % (Auto) [place] # (Auto) Seg Neutrophils % Seg Neuts % (Manual) Lymphocytes % (Manual) Seg Neutrophils # Man Lymphocytes # (Manual) APTT POC ABG pCO2 POC ABG pO2 ABG pO2 ABG Base Excess ABG Hemoglobin ABG Oxyhemoglobin ABG Chloride ABG Glucose Carboxyhemoglobin Potassium Chloride Carbon Dioxide Creatinine Glucose POC Glucose Calcium Total Creatine Kinase Arterial Blood Glucose Urine WBC (Auto) Vancomycin Trough 20.6 H Salicylates Acetaminophen Allied health notes reviewed: nursing
--- NOTE | 2021-10-02 12:19 | Progress Note ---
Assessment and Plan Cultures: Blood culture no growth so far CSF culture no growth so far Sputum culture no growth so far A/P: 31-year-old man past medical history known seizures admitted with seizures, fever #Acute sepsis: With fevers and leukocytosis. Possibly secondary to meningitis/encephalitis. #Seizures: Questionable meningitis/encephalitis. CSF with elevated white count, however low neutrophils and normal glucose. As such unlikely bacterial me ningitis at this time. #MICHAEL: renally dose medications Recs: -Continue vancomycin, ceftriaxone pending CSF cultures. I doubt acute bacterial meningitis, should they finalize as negative ok to stop antibiotics -Stopped acyclovir given no temporal enhancement on MRI. Thank you for the consult, we will continue to follow. Burak Cabral MD [facility] ([facility]) O: [phone] F: [phone] Subjective Date of service: 10/02/21 Principal diagnosis: Acute hypoxemic resp failure; Fevers; AMS; MICHAEL; Metabolic acidosis; Seizure Interval history: Afebrile., Normal white count. Cultures remain negative. Objective - Exam Narrative Exam: Physical Exam: Constitutional: Intubated, sedated Head, Ears, Nose: Normocephalic, atraumatic. External ears, nose normal Eyes: Conjunctivae/corneas clear. No icterus. No ptosis. Neck: Supple, no meningeal signs Oral: ETT Cardiovascular: S1, S2 normal. Respiratory: Good air entry, clear to auscultation bilaterally GI: Soft, non-tender; bowel sounds normal. No peritoneal signs. Musculoskeletal: No pedal edema, no cyanosis. Skin: No rash or abscess Hem/Lymphatic: No palpable cervical or supraclavicular nodes. Psych: Sedated Neurological: Sedated - Constitutional Vitals: Vital Signs Temp Pulse Resp BP Pulse Ox 99.1 F 65 18 124/77 100 10/02/21 04:26 10/02/21 04:26 10/02/21 04:26 10/02/21 04:26 10/02/21 04:26 Temperature -Last 24 Hours Temperature 99.1 F Temperature 98.7 F - Labs CBC & Chem 7: 10/01/21 07:00 10/01/21 07:00 Labs: Abnormal lab results 10/01/21 10/02/21 Range/Units 21:27 04:22 POC Glucose 120 H (70-105) mg/dL Vancomycin Trough 20.6 H (5.0-20.0) ug/mL
[2021-10-02] MEDS: levETIRAcetam 500 MG TAB PO SCH (13:23)
[2021-10-02] MEDS: FAMOTIDINE 20 MG TAB PO SCH (13:23)
[2021-10-02] MEDS: VANCOMYCIN 1,500 MG in SODIUM CHLORIDE 0.9% 500 ML 500 ML IV SCH (13:24)
[2021-10-02] MEDS ORDERED: POTASSIUM CHLORIDE ER 20 MEQ TAB PO ONE (17:59)
[2021-10-03] MEDS: levETIRAcetam 500 MG TAB PO SCH ×2 (00:01→09:42)
[2021-10-03] MEDS: SENNOSIDES/DOCUSATE SODIUM 8.6/50 MG TAB PO SCH (00:01)
[2021-10-03] MEDS: HEPARIN 5,000 UNIT/1 ML VIAL SUB-Q SCH ×2 (00:01→06:16)
[2021-10-03] MEDS: VANCOMYCIN 1,500 MG in SODIUM CHLORIDE 0.9% 500 ML 500 ML IV SCH (00:09)
[2021-10-03] MEDS: cefTRIAXone/NS 2 GM/100 ML 2 GM/100 ML BAG IV SCH (06:14)
--- NOTE | 2021-10-03 07:36 | Discharge Summary ---
Providers - Providers Date of Admission: 09/29/21 00:47 Attending physician: DILMA SMITH MD 09/28/21 21:52 Consult to Physician [CONS] Stat Comment: Consulting Provider: SANKET HUTCHINSON Physician Instructions: Reason For Exam: AMS FEVER INTUBATED 09/29/21 02:11 Consult to Dietitian/Nutrition [CONS] Routine Physician Instructions: Reason For Exam: Reason for Consult: Diet education 09/29/21 02:48 Consult to Physician [CONS] Routine Comment: Consulting Provider: ROMEL KAUFFMAN Physician Instructions: Reason For Exam: SEIZURES 09/29/21 05:35 Consult to Physician [CONS] Routine Comment: Consulting Provider: FADI ROSEN Physician Instructions: Reason For Exam: Acute febrile illness,R/O meningitis/encephalitis Primary care physician: [employer] Hospitalization Reason for admission: seizure Condition: Critical Hospital course: This is a 31-year-old -[place] male with seizure disorder, cocaine abuse and possible EtOH abuse who presented to emergency department on 09/28 via EMS with complaints of possible seizures. Upon arrival to the emergency department patient was awake but altered and nonverbal. Patient was febrile in the field via EMS. In the emergency department patient was combative and uncooperative and subsequently intubated for airway protection. Work-up in the emergency department revealed leukocytosis, metabolic acidosis, elevated BUN/creatinine, UA revealed pyuria, CSF was unremarkable UDS was significant for marijuana and benzodiazepine. Patient was admitted to the hospital service for possible meningitis and seizures with consults to ID, CCM and neurology. 09/29: Currently intubated on MV. Fentanyl and propofol running at 1mcg/kg/hr and 30mcg/kg/min respectively. Neurology evaluated patient at the bedside. Awaiting MRI. We will continue with current plan as stated in H&P. 09/30: extubated early this am. MRI brain completed. abx per ID until pending CSF cultures 10/01: MRI brain completed, no findings consistent with seizure. Neuro input noted. Also discussed alcohol cessation as this could have very well caused patient seizures. Patient should be on isolation since meningitis is suspected. D/w RN about this. LP culture and sensitivities pending. continue empiric antibiotics.Will follow ID recs. 10/02: ID recommended d/c acyclovir. Continue vanc and rocephin at this time until spinal cultures finalize. Afebrile currently, no complaints. 10/03: Spinal culture has been negative for any growth. Meningitis/encephalitis ruled out. OK to d/c antibiotics and antiviral therapy per infectious disease. It is believed patient experienced seizures from prior history of alcohol abuse. I discussed at length at bedside about discontinuing alcohol and seeking help through outpatient behavioral health services. He is also advised to abstain for operating a motorized vehicle until cleared by a physician. Patient will be discharged home with antiepileptic Keppra 500 mg po bid for seizure. This has been transmitted to his pharmacy. He will be discharged home and given instructions to follow up with his primary care physician. Neuro: Seizures, h/o cocaine and possible etoh abuse -Neurology consulted, appreciate recommendations -MRI brain showed no findings to explain seizures or sequele of seizures -EEG completed->see chart for details -Aspiration and seizure precautions -consuling on cessation of etoh and cocaine use -keppra - behavioral health counseling +15 min re: ETOH abuse -As needed analgesia Cardio: SR-ST -Blood pressure monitoring per protocol Resp: Acute hypoxic respiratory failure -CCM consulted, appreciate recommendations -Intubated on 09/28 and extubated on 09/30 -Supplemental oxygen as needed -Pulmonary hygiene -SPO2 monitor per protocol GI: NAD -PPI -24-hour +184 -Regular diet -Passed bedside swallow -BR: Sen[place] : Acute kidney injury due to vasomotor nephropathy, hyperkalemia, metabolic acidosis -likely secondary to vasomotor nephropathy -Trend CBC -Consider nephrology consult if kidney function worsens -Renally dose medications -Trend BMP Endo: NAD -Avoid hypoglycemia ID: Acute sepsis on arrival (ruled out), r/o meningitis/encephailitis (ruled out) -presented wiht fevers, leukocytosis, states he was never vaccinated for meningitis. -ID consulted, appreciate recommendations -LP on admit -CSF with elevated WBC but normal glucose and low neutrophils -cultures and sensitivities pending -abx per ID: all antibiotics and antivirals have been discontinued. Meningitis/encephalitis ruled out. -follow fever and wbc curve - Heme: leukocytosis (resolved) -Trend CBC -transfuse or hbg <7 -SCDs to BLE -heparin subq #Advance care planning Disease education conducted, care plan discussed, diagnoses discussed, prognosis discussed, patient is full code, patient acknowledges understanding and agree with care plan, +30 minutes. Disposition: 01 HOME / SELF CARE / HOMELESS Final Discharge Diagnosis (Prints w/discharge instructions): [place] Time spent for discharge: 35 Core Measure Documentation - Palliative Care Palliative Care/ Comfort Measures: Not Applicable - Core Measures Any of the following diagnoses?: none Exam - Physical Exam Narrative exam: Physical Exam: VITAL SIGNS: Reviewed. GENERAL: The patient appears normally developed, Vital signs as documented. HEAD: No signs of head trauma. EYES: Pupils are equal. Extraocular motions intact. EARS: Hearing grossly intact. MOUTH: Oropharynx is normal. NECK: No adenopathy, no JVD. CHEST: Chest with clear breath sounds bilaterally. No wheezes, rales, or rhonchi. CARDIAC: Regular rate and rhythm. S1 and S2, without murmurs, gallops, or rubs. VASCULAR: No Edema. Peripheral pulses normal and equal in all extremities. ABDOMEN: Soft, non tender and non distended. No rebound or guarding, and no masses palpated. Bowel Sounds normal. MUSCULOSKELETAL: Good range of motion of all major joints. Extremities without clubbing, cyanosis or edema. NEUROLOGIC EXAM: Alert and oriented x 4. no focal sensory or strength deficits. PSYCHIATRIC: Mood normal. SKIN: detail exam as documented in skin assessment - Constitutional Vitals: Temp Pulse Resp BP Pulse Ox 99.2 F 59 L 18 123/64 93 10/03/21 04:37 10/03/21 04:37 10/03/21 04:37 10/03/21 04:37 10/03/21 04:37 Plan Follow up with: PRIMARY CARE, [Primary Care Provider] - 3-5 Days Prescriptions: levETIRAcetam [Keppra TAB] 500 mg PO BID 30 Days #60 tablet
[2021-10-03] MEDS: FAMOTIDINE 20 MG TAB PO SCH (09:42)
--- NOTE | 2021-10-03 09:51 | Progress Note ---
Assessment and Plan Cultures: Blood culture no growth so far CSF culture no growth so far Sputum culture no growth so far A/P: 31-year-old man past medical history known seizures admitted with seizures, fever #Acute sepsis: With fevers and leukocytosis. Possibly secondary to meningitis/encephalitis. #Seizures: Questionable meningitis/encephalitis. CSF with elevated white count, however low neutrophils and normal glucose. As such unlikely bacterial me ningitis at this time. #MICHAEL: renally dose medications Recs: -ok to stop antibiotics -Stopped acyclovir given no temporal enhancement on MRI. Thank you for the consult, we will sign off. PLease call with questions. Burak Cabral MD [facility] ([facility]) O: [phone] F: [phone] Subjective Date of service: 10/03/21 Principal diagnosis: Acute hypoxemic resp failure; Fevers; AMS; MICHAEL; Metabolic acidosis; Seizure Interval history: Afebrile. normal white count. Objective - Exam Narrative Exam: Physical Exam: Constitutional: Intubated, sedated Head, Ears, Nose: Normocephalic, atraumatic. External ears, nose normal Eyes: Conjunctivae/corneas clear. No icterus. No ptosis. Neck: Supple, no meningeal signs Oral: ETT Cardiovascular: S1, S2 normal. Respiratory: Good air entry, clear to auscultation bilaterally GI: Soft, non-tender; bowel sounds normal. No peritoneal signs. Musculoskeletal: No pedal edema, no cyanosis. Skin: No rash or abscess Hem/Lymphatic: No palpable cervical or supraclavicular nodes. Psych: Sedated Neurological: Sedated - Constitutional Vitals: Vital Signs Temp Pulse Resp BP Pulse Ox 99.2 F 59 L 18 123/64 93 10/03/21 04:37 10/03/21 04:37 10/03/21 04:37 10/03/21 04:37 10/03/21 04:37 Temperature -Last 24 Hours Temperature 99.2 F Temperature 98.2 F Temperature 99.7 F - Labs CBC & Chem 7: 10/01/21 07:00 10/02/21 15:08 Labs: Abnormal lab results 10/02/21 Range/Units 15:08 Potassium 3.5 L (3.6-5.0) mmol/L
[2021-10-03 12:49] VITALS: BP 123/75
--- NOTE | 2021-10-03 13:21 | Progress Note ---
Assessment and Plan Acute hypoxemic resp failure s/p MVS Fevers, possible meningitis/encephalaitis Acute renal failure Metabolic acidosis Seizures - discharge planning ok pulmonary-rollins - neurology evaluation negative for acute process so far - de-escalate AB's per ID recommendations - Acyclovir discontinued and neuro imaging negative for classic pathognomonic features - continue care as below for now; - continue empiric meningitis / encephalitis - continue empiric Keppra as AED - prn supplemental oxygen to keep O2 sats > 90% - prn bronchodilators (MAHESH) with pulm hygiene per RT - avoid nephrotoxins, renally dose all medications - mobility protocols to prevent pressure ulcers - PT/OT as tolerated - Wound care per RN/WCT - accuchecks with glycemic control per SSI for target blood glucose < 180 mg/dL - tobacco abstinence strongly counseled at the bedside - home oxygen evaluation at discharge - GI & VTE prophylaxis - Flu & pneumovax per protocol - continue other care per attending / other consultants - prn analgesia per pain score ... re-evaluate in am & prn Subjective Date of service: 10/03/21 Principal diagnosis: Acute hypoxemic resp failure; Fevers; AMS; MICHAEL; Metabolic acidosis; Seizure Interval history: Patient is seen today for: Acute hypoxemic resp failure; Fevers; possible meningitis/encephalaitis; MICHAEL; Acute Metabolic acidosis Seen and examined at bedside; 24hour events reviewed; nursing and respiratory care staff consulted; no adverse overnight events reported to me; resting peacefully in bed; Objective Vital Signs - 12hr 10/03/21 10/03/21 04:37 12:14 Temperature 99.2 F 99.2 F Pulse Rate 59 L 64 Respiratory 18 22 Rate Blood Pressure 123/64 123/75 O2 Sat by Pulse 93 100 Oximetry Constitutional: no acute distress Eyes: non-icteric ENT: oropharynx moist Neck: supple, no lymphadenopathy, no JVD Effort: normal Ascultation: Bilateral: clear, diminished breath sounds Percussion: Bilateral: not dull Cardiovascular: regular rate and rhythm, other (S1,S2) Gastrointestinal: normoactive bowel sounds, soft, non-tender, non-distended Integumentary: normal Extremities: no cyanosis, no edema, pulses normal, no ischemia or petechiae Neurologic: non-focal exam (grossly), pupils equal and round, CN II-XII normal, motor strength normal and Psychiatric: mood appropriate, affect normal CBC and BMP: 10/01/21 07:00 10/02/21 15:08 ABG, PT/INR, D-dimer: ABG ABG pH 7.412 pH Units (7.350-7.450) 09/30/21 04:00 POC ABG pCO2 28.7 mmHg (32.0-48.0) L 09/29/21 00:57 ABG pCO2 32.8 mm Hg 09/30/21 04:00 POC ABG pO2 228.9 mmHg (83-108) H 09/29/21 00:57 ABG pO2 130.5 mm Hg (80.0-90.0) H 09/30/21 04:00 POC ABG HCO3 18.2 09/29/21 00:57 ABG O2 Saturation 98.6 % (95.0-99.0) 09/30/21 04:00 PT/INR, D-dimer PT 13.1 Sec. (12.2-14.9) 09/28/21 21:49 INR 0.89 (0.87-1.13) 09/28/21 21:49 Abnormal lab findings: Abnormal Labs 09/28/21 09/28/21 09/28/21 21:49 21:49 21:49 WBC 13.6 H RBC 5.32 H Hct 46.1 H [place] % (Auto) [place] # (Auto) Seg Neutrophils % Seg Neuts % (Manual) 89.0 H Lymphocytes % (Manual) 6.0 L Seg Neutrophils # Man 12.1 H Lymphocytes # (Manual) 0.8 L APTT POC ABG pCO2 POC ABG pO2 ABG pO2 ABG Base Excess ABG Hemoglobin ABG Oxyhemoglobin ABG Chloride ABG Glucose Carboxyhemoglobin Potassium Chloride Carbon Dioxide 17 L Creatinine 1.4 H Glucose 103 H POC Glucose Calcium Total Creatine Kinase 962 H Arterial Blood Glucose Urine WBC (Auto) Vancomycin Trough Salicylates < 0.3 L Acetaminophen 09/28/21 09/28/21 09/29/21 21:49 21:49 00:57 WBC RBC Hct [place] % (Auto) [place] # (Auto) Seg Neutrophils % Seg Neuts % (Manual) Lymphocytes % (Manual) Seg Neutrophils # Man Lymphocytes # (Manual) APTT 22.1 L POC ABG pCO2 28.7 L POC ABG pO2 228.9 H ABG pO2 ABG Base Excess ABG Hemoglobin ABG Oxyhemoglobin 98.9 H ABG Chloride 109.0 H ABG Glucose 105 H Carboxyhemoglobin 0 L Potassium Chloride Carbon Dioxide Creatinine Glucose POC Glucose Calcium Total Creatine Kinase Arterial Blood Glucose 105 H Urine WBC (Auto) Vancomycin Trough Salicylates Acetaminophen 5.0 L 09/29/21 09/30/21 09/30/21 Unknown 04:00 04:33 WBC RBC Hct [place] % (Auto) 9.2 H [place] # (Auto) 0.9 H Seg Neutrophils % 75.6 H Seg Neuts % (Manual) Lymphocytes % (Manual) Seg Neutrophils # Man Lymphocytes # (Manual) APTT POC ABG pCO2 POC ABG pO2 ABG pO2 130.5 H ABG Base Excess -3.3 L ABG Hemoglobin 13.4 L ABG Oxyhemoglobin ABG Chloride ABG Glucose Carboxyhemoglobin Potassium Chloride Carbon Dioxide Creatinine Glucose POC Glucose Calcium Total Creatine Kinase Arterial Blood Glucose Urine WBC (Auto) 150.0 H Vancomycin Trough Salicylates Acetaminophen 09/30/21 10/01/21 10/01/21 04:33 07:00 21:27 WBC RBC Hct [place] % (Auto) [place] # (Auto) Seg Neutrophils % Seg Neuts % (Manual) Lymphocytes % (Manual) Seg Neutrophils # Man Lymphocytes # (Manual) APTT POC ABG pCO2 POC ABG pO2 ABG pO2 ABG Base Excess ABG Hemoglobin ABG Oxyhemoglobin ABG Chloride ABG Glucose Carboxyhemoglobin Potassium 3.0 L D Chloride 110.0 H 107.4 H Carbon Dioxide 20 L Creatinine Glucose POC Glucose 120 H Calcium 8.3 L Total Creatine Kinase Arterial Blood Glucose Urine WBC (Auto) Vancomycin Trough Salicylates Acetaminophen 10/02/21 10/02/21 04:22 15:08 WBC RBC Hct [place] % (Auto) [place] # (Auto) Seg Neutrophils % Seg Neuts % (Manual) Lymphocytes % (Manual) Seg Neutrophils # Man Lymphocytes # (Manual) APTT POC ABG pCO2 POC ABG pO2 ABG pO2 ABG Base Excess ABG Hemoglobin ABG Oxyhemoglobin ABG Chloride ABG Glucose Carboxyhemoglobin Potassium 3.5 L Chloride Carbon Dioxide Creatinine Glucose POC Glucose Calcium Total Creatine Kinase Arterial Blood Glucose Urine WBC (Auto) Vancomycin Trough 20.6 H Salicylates Acetaminophen Allied health notes reviewed: nursing
== END 2021-10-03 13:22 | disposition home or self-care (01) | DRG 97 ==
LOC: ED 19:15 → CC1 09-29 00:47 → 3A 09-30 15:56
PROVIDERS: ADMIT Internal Medicine Geriatric Medicine; ATTEND Internal Medicine
PROC: 5A1945Z Respiratory Ventilation, 24-96 Consecutive Hours (ICD-10-PCS; principal; 2021-09-28)
PROC: 0BH17EZ Insertion of Endotracheal Airway into Trachea, Via Natural or Artificial Opening (ICD-10-PCS; 2021-09-28)
PROC: 4A033R1 Measurement of Arterial Saturation, Peripheral, Percutaneous Approach (ICD-10-PCS; 2021-09-30)
DX: G03.9 Meningitis, unspecified (principal); J96.01 Acute respiratory failure with hypoxia; N17.0 Acute kidney failure with tubular necrosis; G04.90 Encephalitis and encephalomyelitis, unspecified; G40.89 Other seizures; E87.2 Acidosis; E87.5 Hyperkalemia; Z20.822 Contact with and (suspected) exposure to COVID-19
CPT/HCPCS: 36415; 36600; 70450; 70553; 71045; 72125; 80048; 80053; 80202; 80307; 80320; 81001; 82140; 82550; 82803; 82805; 82947; 82962; 84132; 84160; 85007; 85025; 85027; 85610; 85730; 87040; 87070; 87116; 87205; 87498; 87799; 89051; 93005; 94002; 94003; 94760; 95819; G0378; J3490; J7060; Q0162; A9575; G0480; J0133; J0696; J1100; J1200; J1630; J1644; J1953; J2060; J2250; J2704; J3010; J3370; J7030; J7040; U0003

== ENCOUNTER 2021-11-09 20:02 | Emergency (ER) | payer SELFPAY ==
[2021-11-09] MEDS ORDERED: levETIRAcetam 1000 MG/NS 0.75% 1,000 MG/100 ML BAG IV ONE (20:40)
--- NOTE | 2021-11-09 20:40 | Emergency Department Report ---
ED Seizure HPI - General Chief Complaint: Headache Stated Complaint: SEIZURE Time Seen by Provider: 11/09/21 20:39 - History of Present Illness Initial Comments: Patient presents by EMS secondary to seizure. EMS was called because his 2 roommates witnessed him seizing. They brought him here for evaluation. He has been postictal for EMS. EMS states that he is starting to come around and wake up a little bit. History cannot be obtained for the patient as he is still postictal and confused. He does have a known history of seizures. Reportedly, he had been out of his Keppra. He states that he did not have a refill on his medication. Again, this history was provided by EMS. - Related Data Previous Rx's Medication Instructions Recorded Last Taken Type levETIRAcetam [Keppra] 500 mg PO BID #60 udc 08/18/21 Unknown Rx levETIRAcetam [Keppra TAB] 500 mg PO BID 30 Days #60 tablet 11/10/21 Unknown Rx Allergies Allergy/AdvReac Type Severity Reaction Status Date / Time No Known Allergies Allergy Verified 09/28/21 19:35 ED Review of Systems ROS: Stated complaint: SEIZURE Other details as noted in HPI ED Past Medical Hx - Past Medical History Hx Seizures: Yes - Social History Smoking Status: Never Smoker - Medications Home Medications: Home Medications Medication Instructions Recorded Confirmed Last Taken Type levETIRAcetam [Keppra] 500 mg PO BID #60 udc 08/18/21 09/30/21 Unknown Rx levETIRAcetam [Keppra TAB] 500 mg PO BID 30 Days #60 tablet 11/10/21 Unknown Rx ED Course Vital Signs 11/09/21 11/09/21 11/10/21 21:35 22:50 00:10 Temperature 102 F H Pulse Rate 64 77 77 Respiratory 17 26 H 24 Rate Blood Pressure 127/70 107/61 111/65 [Right] O2 Sat by Pulse 96 99 97 Oximetry 11/10/21 11/10/21 02:40 04:22 Temperature 102.7 F H 99.5 F Pulse Rate 72 71 Respiratory 16 17 Rate Blood Pressure 113/56 129/75 [Right] O2 Sat by Pulse 96 98 Oximetry - Reevaluation(s) Reevaluation #1: 11/09/21 20:40 EMS was met. Labs ordered. Old records noted. Reevaluation #2: 11/09/21 21:57 temp noted. sz stopped w/ativan and versed. sepsis orders placed. Reevaluation #3: 11/10/21 02:10 There has been no further seizure activity. Labs have been reviewed. UA is pending. Patient is starting to come around. He is at least able to sit up and intermittently drink some liquids. UA is pending. Reevaluation #4: 11/10/21 04:51 Patient is now awake and conversant. He is back to baseline. He will be discharged. He has been loaded with Keppra. We will have him follow-up with his regular doctor and maintain Keppra dosing. There was no clinical evidence to suggest subdural or epidural hematomas. He did have leukocytosis but did not have any differential neck or meningeal signs on exam to suggest meningitis. I do not believe requires LP. I did discuss this with him and he has declined. He does have the capacity to make this decision at this time. ED Medical Decision Making - Lab Data Result diagrams: 11/09/21 22:00 11/09/21 20:49 - Medical Decision Making Patient presents with seizure. He did have 2 seizures total. He was loaded with Keppra as we know he is noncompliant. He does have evidence of an acute febrile illness but does not have evidence of urinary tract infection, pn eumonia, or meningitis based on his current presentation. There is no peritoneal findings. He has no evidence of cellulitis. He certainly could have coronavirus to account for some of the symptoms. Regardless, he feels well. He has been stabilized. We will have him follow-up as an outpatient. Critical Care Time: No Critical care attestation.: If time is entered above; I have spent that time in minutes in the direct care of this critically ill patient, excluding procedure time. ED Disposition Clinical Impression: Recurrent seizures, Acute febrile illness Disposition: 01 HOME / SELF CARE / HOMELESS Is pt being admited?: No Condition: Stable Instructions: Epilepsy, [id number] Additional Instructions: Take your medication. Follow-up with your primary care physician. Drink plenty water. Avoid stimulants. Return for any problems or concerns. Prescriptions: levETIRAcetam [Keppra TAB] 500 mg PO BID 30 Days #60 tablet Referrals: PRIMARY CARE, [Primary Care Provider] - 3-5 Days MALENA PALOMINO MD [Staff Physician] - 3-5 Days
[2021-11-09 21:23] LABS: BUN/Creatinine Ratio 8; Blood Urea Nitrogen 12 mg/dL (9-20); Calcium 9.3 mg/dL (8.4-10.2); Hemolysis Index 3
[2021-11-09] MEDS ORDERED: ACETAMINOPHEN 500 MG TAB PO ONE (21:39)
[2021-11-09] MEDS ORDERED: LORazepam 2 MG/ML VIAL ONE (21:42)
[2021-11-09] MEDS ORDERED: LORazepam 2 MG/ML VIAL IV ONE (21:43)
[2021-11-09] MEDS ORDERED: MIDAZOLAM 2 MG/2 ML INJ ONE (21:55)
[2021-11-09] MEDS ORDERED: LACTATED RINGERS 1000 ML IV SOLN IV ONE (21:58)
[2021-11-09] MEDS ORDERED: MIDAZOLAM 5 MG/5 ML INJ MDV IV NR (22:00)
[2021-11-09 22:05] LABS: Hematocrit 45.6 % (35.5-45.6); Hemoglobin 15.1 gm/dl (11.8-15.2); Mean Corpuscular HGB Conc 33 % (32-34); Mean Corpuscular Volume 87 fl (84-94); Platelet Count 259 K/mm3 (140-440); Red Blood Count 5.23 M/mm3 (3.65-5.03); Red Cell Distribution Width 14.6 % (13.2-15.2)
--- NOTE | 2021-11-09 22:21 | XRay Report ---
CHEST 1 VIEW 11/09/2021 10:03 PM INDICATION / CLINICAL INFORMATION: Sepsis. COMPARISON: 09/30/21. FINDINGS: SUPPORT DEVICES: The endotracheal tube has been removed. HEART / MEDIASTINUM: The heart size and pulmonary vasculature are normal. LUNGS / PLEURA: No significant pulmonary or pleural abnormality. Patchy parenchymal disease in the le ft lower lung has cleared.. No pneumothorax. ADDITIONAL FINDINGS: No significant additional findings. IMPRESSION: No acute findings. Signer Name: Cheo Darling MD Signed: 11/09/2021 10:16 PM Workstation Name: [id number]
[2021-11-09] MEDS ORDERED: HALOPERIDOL LACTATE 5 MG/1 ML INJ ONE (22:41)
[2021-11-09] MEDS: HALOPERIDOL LACTATE 5 MG/1 ML INJ IV ONE ×2 (22:43→22:44)
[2021-11-10] MEDS ORDERED: LACTATED RINGERS 1,000 ML IV ONE (01:08)
[2021-11-10] MEDS ORDERED: ACETAMINOPHEN 325 MG/10.15 ML ORAL LIQD UNIT DOSE PO ONE (01:17)
[2021-11-10] MEDS ORDERED: KETOROLAC 30 MG/1 ML INJ IV ONE (02:28)
[2021-11-10 04:20] LABS: Amphetamine Screen,Urine Negative; Cocaine Screen,Urine Negative; Methadone Screen,Urine Negative; Opiate Screen,Urine Negative
[2021-11-10 04:43] LABS: Benzodiazepines Screen,Urine PRESUMPTIVE POSITIVE; Cannabinoid Screen,Urine PRESUMPTIVE POSITIVE
[2021-11-10 04:49] LABS: Bilirubin,Urine NEG (Negative); Blood,Urine SM (Negative); Color,Urine Straw (Yellow); Mucus,Urine FEW /HPF; Urobilinogen,Urine < 2.0 mg/dL (<2.0)
[2021-11-10 05:56] VITALS: BP 123/61
[2021-11-10 07:04] LABS: Band Neutrophils # (Manual) 0.2 K/mm3; Basophils % (Manual) 0 % (0.0-1.8); Eosinophils % (Manual) 0 % (0.0-4.3); Myelocytes # (Manual) 0.2 K/mm3; Total Cells Counted 100
== END 2021-11-10 06:12 | disposition home or self-care (01) ==
LOC: ED 20:02
DX: R56.9 Unspecified convulsions (principal); R50.9 Fever, unspecified; Z79.899 Other long term (current) drug therapy
CPT/HCPCS: 36415; 71045; 80048; 80307; 81001; 82140; 83735; 85007; 85025; 87040; 96361; 96365; 96375; 99284; J1630; J1885; J1953; J2060; J2250; J7120

== ENCOUNTER 2021-12-30 16:42 | Emergency (ER) | payer SELFPAY ==
[2021-12-30] MEDS ORDERED: levETIRAcetam 1000 MG/NS 0.75% 1,000 MG/100 ML BAG IV ONE (17:05)
[2021-12-30] MEDS ORDERED: SODIUM CHLORIDE 0.9% 1000 ML 1,000 ML IV ONE (17:05)
--- NOTE | 2021-12-30 17:06 | Emergency Department Report ---
HPI - General Chief Complaint: Seizure Time Seen by Provider: 12/30/21 16:54 - HPI HPI: 31-year-old -B[place] male presents to the emergency department with complaint of 4 seizures prior to arrival. EMS reports that there were 4 total seizures and they gave 2 mg of Ativan in route for at least one witnessed seizure. In reviewing the patient's chart he does have a history of previous seizure and has been seen here before after medication noncompliance with his Keppra. Patient is currently postictal and therefore a poor historian. ED Past Medical Hx - Past Medical History Hx Seizures: Yes - Social History Smoking Status: Never Smoker - Medications Home Medications: Home Medications Medication Instructions Recorded Confirmed Last Taken Type levETIRAcetam [Keppra] 500 mg PO BID #60 udc 08/18/21 09/30/21 Unknown Rx levETIRAcetam [Keppra TAB] 500 mg PO BID 30 Days #60 tablet 12/30/21 Unknown Rx ED Review of Systems ROS: Stated complaint: SEIZURE Other details as noted in HPI Comment: Unobtainable due to pts medical conditions Physical Exam - Physical Exam Vital Signs: Vital Signs 12/30/21 16:45 Temperature 98.0 F Pulse Rate 110 H Respiratory 16 Rate Blood Pressure 152/72 [Right] O2 Sat by Pulse 99 Oximetry Physical Exam: GENERAL: The patient is ill-appearing and postictal. HENT: Normocephalic. Atraumatic. Patient has moist mucous membranes. EYES: Pupils equal reactive to light bilaterally. NECK: Supple. Trachea is midline. CHEST/LUNGS: Clear to auscultation. There is no respiratory distress noted. HEART/CARDIOVASCULAR: Regular. There is no tachycardia. There is no murmur. ABDOMEN: Abdomen is soft, nontender. Patient has normal bowel sounds. There is no abdominal distention. SKIN: Skin is warm and dry. NEURO: Patient is somewhat arousable but remains nonverbal and not following commands. Postictal. MUSCULOSKELETAL: There is no tenderness or deformity. There is no evidence of acute injury. ED Course Vital Signs 12/30/21 16:45 Temperature 98.0 F Pulse Rate 110 H Respiratory 16 Rate Blood Pressure 152/72 [Right] O2 Sat by Pulse 99 Oximetry ED Medical Decision Making - Lab Data Result diagrams: 12/30/21 18:23 12/30/21 18:23 Lab Results 12/30/21 12/30/21 12/30/21 Range/Units 18:23 18:23 18:23 WBC 13.0 H (4.5-11.0) K/mm3 RBC 5.12 H (3.65-5.03) M/mm3 Hgb 15.2 (11.8-15.2) gm/dl Hct 44.3 (35.5-45.6) % MCV 87 (84-94) fl MCH 30 (28-32) pg MCHC 34 (32-34) % RDW 14.2 (13.2-15.2) % Plt Count 252 (140-440) K/mm3 Add Manual Diff Complete Total Counted 100 Seg Neutrophils % Security Sales Manager Seg Neuts % (Manual) 88.0 H (40.0-70.0) % Band Neutrophils % 0 % Lymphocytes % (Manual) 9.0 L (13.4-35.0) % Reactive Lymphs % (Man) 0 % Monocytes % (Manual) 3.0 (0.0-7.3) % Eosinophils % (Manual) 0 (0.0-4.3) % Basophils % (Manual) 0 (0.0-1.8) % Metamyelocytes % 0 % Myelocytes % 0 % Promyelocytes % 0 % Blast Cells % 0 % Nucleated RBC % Not Reportable Seg Neutrophils # Man 11.4 H (1.8-7.7) K/mm3 Band Neutrophils # 0.0 K/mm3 Lymphocytes # (Manual) 1.2 (1.2-5.4) K/mm3 Abs React Lymphs (Man) 0.0 K/mm3 Monocytes # (Manual) 0.4 (0.0-0.8) K/mm3 Eosinophils # (Manual) 0.0 (0.0-0.4) K/mm3 Basophils # (Manual) 0.0 (0.0-0.1) K/mm3 Metamyelocytes # 0.0 K/mm3 Myelocytes # 0.0 K/mm3 Promyelocytes # 0.0 K/mm3 Blast Cells # 0.0 K/mm3 WBC Morphology Not Reportable Hypersegmented Neuts Not Reportable Hyposegmented Neuts Not Reportable Hypogranular Neuts Not Reportable Smudge Cells Not Reportable Toxic Granulation Not Reportable Toxic Vacuolation Not Reportable Dohle Bodies Not Reportable Pelger-Huet Anomaly Not Reportable Miya Rods Not Reportable Platelet Estimate Consistent w auto Clumped Platelets Not Reportable Plt Clumps, EDTA Not Reportable Large Platelets Not Reportable Giant Platelets Not Reportable Platelet Satelliting Not Reportable Plt Morphology Comment Not Reportable RBC Morphology Normal Dimorphic RBCs Not Reportable Polychromasia Not Reportable Hypochromasia Not Reportable Poikilocytosis Not Reportable Anisocytosis Not Reportable Microcytosis Not Reportable Macrocytosis Not Reportable Spherocytes Not Reportable Pappenheimer Bodies Not Reportable Sickle Cells Not Reportable Target Cells Not Reportable Tear Drop Cells Not Reportable Ovalocytes Not Reportable Helmet Cells Not Reportable Soto-Coulter Bodies Not Reportable [place] Rings Not Reportable Moi Cells Not Reportable Bite Cells Not Reportable Crenated Cell Not Reportable Elliptocytes Not Reportable Acanthocytes (Spur) Not Reportable Rouleaux Not Reportable Hemoglobin C Crystals Not Reportable Schistocytes Not Reportable Malaria parasites Not Reportable Renzo Bodies Not Reportable Hem Pathologist Commnt No Sodium 138 (137-145) mmol/L Potassium 4.3 (3.6-5.0) mmol/L Chloride 104.0 (98-107) mmol/L Carbon Dioxide 20 L (22-30) mmol/L Anion Gap 18 mmol/L BUN 12 (9-20) mg/dL Creatinine 1.3 (0.8-1.3) mg/dL Estimated GFR > 60 ml/min BUN/Creatinine Ratio 9 % Glucose 95 (75-100) mg/dL Calcium 9.5 (8.4-10.2) mg/dL Total Bilirubin 0.60 (0.1-1.2) mg/dL AST 27 (5-40) units/L ALT 22 (7-56) units/L Alkaline Phosphatase 80 (35-129) units/L Total Creatine Kinase 545 H (55-170) units/L Total Protein 7.9 (6.3-8.2) g/dL Albumin 4.9 (3.9-5) g/dL Albumin/Globulin Ratio 1.6 % TSH 0.391 (0.270-4.200) mlU/mL Urine Color (Yellow) Urine Turbidity (Clear) Urine pH (5.0-7.0) Ur Specific [place] (1.003-1.030) Urine Protein (Negative) mg/dL Urine Glucose (UA) (Negative) mg/dL Urine Ketones (Negative) mg/dL Urine Blood (Negative) Urine Nitrite (Negative) Urine Bilirubin (Negative) Urine Urobilinogen (<2.0) mg/dL Ur Leukocyte Esterase (Negative) Urine WBC (Auto) (0.0-6.0) /HPF Urine RBC (Auto) (0.0-6.0) /HPF Uric Acid Crystals Urine Opiates Screen Urine Methadone Screen Ur Barbiturates Screen Ur Phencyclidine Scrn Ur Amphetamines Screen U Benzodiazepines Scrn Urine Cocaine Screen U Marijuana (THC) Screen Drugs of Abuse Note Plasma/Serum Alcohol (0-0.07) % 12/30/21 12/30/21 12/30/21 Range/Units 18:23 22:30 22:30 WBC (4.5-11.0) K/mm3 RBC (3.65-5.03) M/mm3 Hgb (11.8-15.2) gm/dl Hct (35.5-45.6) % MCV (84-94) fl MCH (28-32) pg MCHC (32-34) % RDW (13.2-15.2) % Plt Count (140-440) K/mm3 Add Manual Diff Total Counted Seg Neutrophils % Seg Neuts % (Manual) (40.0-70.0) % Band Neutrophils % % Lymphocytes % (Manual) (13.4-35.0) % Reactive Lymphs % (Man) % Monocytes % (Manual) (0.0-7.3) % Eosinophils % (Manual) (0.0-4.3) % Basophils % (Manual) (0.0-1.8) % Metamyelocytes % % Myelocytes % % Promyelocytes % % Blast Cells % % Nucleated RBC % Seg Neutrophils # Man (1.8-7.7) K/mm3 Band Neutrophils # K/mm3 Lymphocytes # (Manual) (1.2-5.4) K/mm3 Abs React Lymphs (Man) K/mm3 Monocytes # (Manual) (0.0-0.8) K/mm3 Eosinophils # (Manual) (0.0-0.4) K/mm3 Basophils # (Manual) (0.0-0.1) K/mm3 Metamyelocytes # K/mm3 Myelocytes # K/mm3 Promyelocytes # K/mm3 Blast Cells # K/mm3 WBC Morphology Hypersegmented Neuts Hyposegmented Neuts Hypogranular Neuts Smudge Cells Toxic Granulation Toxic Vacuolation Dohle Bodies Pelger-Huet Anomaly Miya Rods Platelet Estimate Clumped Platelets Plt Clumps, EDTA Large Platelets Giant Platelets Platelet Satelliting Plt Morphology Comment RBC Morphology Dimorphic RBCs Polychromasia Hypochromasia Poikilocytosis Anisocytosis Microcytosis Macrocytosis Spherocytes Pappenheimer Bodies Sickle Cells Target Cells Tear Drop Cells Ovalocytes Helmet Cells Soto-Coulter Bodies [place] Rings [place] Cells Bite Cells Crenated Cell Elliptocytes Acanthocytes (Spur) Rouleaux Hemoglobin C Crystals Schistocytes Malaria parasites Renzo Bodies Hem Pathologist Commnt Sodium (137-145) mmol/L Potassium (3.6-5.0) mmol/L Chloride (98-107) mmol/L Carbon Dioxide (22-30) mmol/L Anion Gap mmol/L BUN (9-20) mg/dL Creatinine (0.8-1.3) mg/dL Estimated GFR ml/min BUN/Creatinine Ratio % Glucose (75-100) mg/dL Calcium (8.4-10.2) mg/dL Total Bilirubin (0.1-1.2) mg/dL AST (5-40) units/L ALT (7-56) units/L Alkaline Phosphatase (35-129) units/L Total Creatine Kinase (55-170) units/L Total Protein (6.3-8.2) g/dL Albumin (3.9-5) g/dL Albumin/Globulin Ratio % TSH (0.270-4.200) mlU/mL Urine Color Yellow (Yellow) Urine Turbidity Turbid (Clear) Urine pH 5.0 (5.0-7.0) Ur Specific [place] 1.011 (1.003-1.030) Urine Protein <15 mg/dl (Negative) mg/dL Urine Glucose (UA) Neg (Negative) mg/dL Urine Ketones Tr (Negative) mg/dL Urine Blood Sm (Negative) Urine Nitrite Neg (Negative) Urine Bilirubin Neg (Negative) Urine Urobilinogen < 2.0 (<2.0) mg/dL Ur Leukocyte Esterase Neg (Negative) Urine WBC (Auto) 47.0 H (0.0-6.0) /HPF Urine RBC (Auto) 31.0 (0.0-6.0) /HPF Uric Acid Crystals 3+ Urine Opiates Screen Presumptive negative Urine Methadone Screen Presumptive negative Ur Barbiturates Screen Presumptive negative Ur Phencyclidine Scrn Presumptive negative Ur Amphetamines Screen Presumptive negative U Benzodiazepines Scrn Presumptive negative Urine Cocaine Screen Presumptive negative U Marijuana (THC) Screen Presumptive positive Drugs of Abuse Note Disclamer Plasma/Serum Alcohol < 0.01 (0-0.07) % - Medical Decision Making This patient presented to the emergency department after having 4 seizures prior to presentation. He does appear postictal initially. The plan was to place an IV and give the patient Keppra and IV fluid resuscitation. Due to his postictal state, the patient was not compliant and pulled out the first IV and continued to lay on his side or lay facedown. The patient was given some Ativan for both treatment of his seizures, as well as for some sedation so that his work-up/evaluation could continue. We were then able to place another periphe ral IV and the patient received the loading dose of Keppra and IV fluid. Labs have been mostly unremarkable except for a mild leukocytosis of 13,000, and urinalysis does show WBCs but he is negative for nitrites and leukocyte esterase. Patient was reevaluated multiple times for multiple hours and has become progressively more awake, alert, oriented. Prior to discharge patient is able to exhibit that he is AAO x3, and he was ambulatory in the emergency department and both appears and feels stable. The patient does admit that he ran out of his Keppra and therefore has been noncompliant over the past week. The patient has been in the emergency department for about 5 hours and there has been no further seizure-like activity. He will be discharged home with a refill of his Keppra and an outpatient referral for neurology. Critical Care Time: No Critical care attestation.: If time is entered above; I have spent that time in minutes in the direct care of this critically ill patient, excluding procedure time. ED Disposition Clinical Impression: Seizure Disposition: 01 HOME / SELF CARE / HOMELESS Is pt being admited?: No Condition: Stable Instructions: Seizure, Adult Additional Instructions: Please follow-up with a primary care physician in the next few days. I have given you a referral for a local primary care physician, Dr. Kim, and a primary care clinic, [facility]. I am giving you a referral for a local neurologist, Dr. Aragon, to follow-up regarding your seizures. Because of your seizures you are not allowed to drive or operate any heavy machinery for at least 6 months or until cleared by a neurologist to do so. Avoid alcohol and excessive caffeine use. Take all medications as previously prescribed. Return to the emergency department with any worsening of your symptoms, new or concerning symptoms not addressed during this current emergency department visit, or with any acute distress. Prescriptions: levETIRAcetam [Keppra TAB] 500 mg PO BID 30 Days #60 tablet Referrals: ANDRAE ARAGON MD [Referring] - 3-5 Days DAYSI KIM MD [Staff Physician] - 3-5 Days [facility] [Provider Group] - 3-5 Days Time of Disposition: 23:23
[2021-12-30] MEDS ORDERED: LORazepam 2 MG/ML VIAL IM ONE (17:21)
[2021-12-30 18:30] LABS: Hematocrit 44.3 % (35.5-45.6); Hemoglobin 15.2 gm/dl (11.8-15.2); Mean Corpuscular HGB Conc 34 % (32-34); Mean Corpuscular Volume 87 fl (84-94); Platelet Count 252 K/mm3 (140-440); Red Blood Count 5.12 M/mm3 (3.65-5.03); Red Cell Distribution Width 14.2 % (13.2-15.2)
[2021-12-30 18:54] LABS: Alanine Aminotransferase 22 units/L (7-56); Albumin 4.9 g/dL (3.9-5); BUN/Creatinine Ratio 9; Blood Urea Nitrogen 12 mg/dL (9-20); Calcium 9.5 mg/dL (8.4-10.2); Hemolysis Index 8
[2021-12-30 22:58] LABS: Amphetamine Screen,Urine PRESUMPTIVE NEGATIVE; Benzodiazepines Screen,Urine PRESUMPTIVE NEGATIVE; Cannabinoid Screen,Urine PRESUMPTIVE POSITIVE; Cocaine Screen,Urine PRESUMPTIVE NEGATIVE; Methadone Screen,Urine PRESUMPTIVE NEGATIVE; Opiate Screen,Urine PRESUMPTIVE NEGATIVE
[2021-12-30 22:59] VITALS: BP 107/49
[2021-12-30 23:01] LABS: Bilirubin,Urine NEG (Negative); Blood,Urine SM (Negative); Protein,Urine <15 mg/dL mg/dL (Negative); Urobilinogen,Urine < 2.0 mg/dL (<2.0)
[2021-12-30 23:10] LABS: Color,Urine Yellow (Yellow)
[2021-12-30 23:20] LABS: Basophils % (Manual) 0 % (0.0-1.8); Eosinophils % (Manual) 0 % (0.0-4.3); Platelet Estimate Consistent w Auto; RBC Morphology Normal; Total Cells Counted 100
== END 2021-12-31 01:00 | disposition home or self-care (01) ==
LOC: ED 16:42
DX: G40.909 Epilepsy, unspecified, not intractable, without status epilepticus (principal)
CPT/HCPCS: 36415; 80053; 80307; 81001; 82550; 84443; 85007; 85025; 87086; 96372; 96374; 99284; J1953; J2060; J7030; 80320; Q0162; G0480

== ENCOUNTER 2022-06-26 23:18 | Emergency (ER) | payer SELFPAY ==
[2022-06-26 23:39] VITALS: BP 130/72
[2022-06-27 00:25] LABS: Amphetamine Screen,Urine PRESUMPTIVE NEGATIVE; Benzodiazepines Screen,Urine PRESUMPTIVE NEGATIVE; Cannabinoid Screen,Urine PRESUMPTIVE POSITIVE; Cocaine Screen,Urine PRESUMPTIVE NEGATIVE; Methadone Screen,Urine PRESUMPTIVE NEGATIVE; Opiate Screen,Urine PRESUMPTIVE NEGATIVE
--- NOTE | 2022-06-27 07:01 | Emergency Department Report ---
ED General Adult HPI - General Chief complaint: Medical Clearance Stated complaint: FEEL WEIRD Time Seen by Provider: 06/27/22 06:58 Source: patient Mode of arrival: Ambulatory Limitations: No Limitations - History of Present Illness Initial comments: History of seizures and may have had a seizure 4 days ago due to running out of Keppra and seeks a medication refill. Denies current issues. -: Gradual Severity scale (0 -10): 0 - Related Data Previous Rx's Medication Instructions Recorded Last Taken Type levETIRAcetam [Keppra] 500 mg PO BID #60 udc 08/18/21 Unknown Rx levETIRAcetam [Keppra TAB] 500 mg PO BID 30 Days #60 tablet 06/27/22 Unknown Rx Allergies Allergy/AdvReac Type Severity Reaction Status Date / Time No Known Allergies Allergy Verified 09/28/21 19:35 ED Review of Systems ROS: Stated complaint: FEEL WEIRD Other details as noted in HPI Comment: All other systems reviewed and negative ED Past Medical Hx - Past Medical History Previous Medical History?: Yes Hx Seizures: Yes - Surgical History Past Surgical History?: No - Social History Smoking Status: Never Smoker - Medications Home Medications: Home Medications Medication Instructions Recorded Confirmed Last Taken Type levETIRAcetam [Keppra] 500 mg PO BID #60 udc 08/18/21 09/30/21 Unknown Rx levETIRAcetam [Keppra TAB] 500 mg PO BID 30 Days #60 tablet 06/27/22 Unknown Rx ED Physical Exam - General Limitations: No Limitations General appearance: alert, in no apparent distress - Head Head exam: Present: atraumatic, normocephalic - Eye Eye exam: Present: normal appearance, PERRL, EOMI Pupils: Present: normal accommodation - ENT ENT exam: Present: normal exam, mucous membranes moist - Neck Neck exam: Present: normal inspection, full ROM - Respiratory Respiratory exam: Present: normal lung sounds bilaterally. Absent: respiratory distress - Cardiovascular Cardiovascular Exam: Present: regular rate, normal rhythm. Absent: systolic murmur, diastolic murmur, rubs, gallop - GI/Abdominal GI/Abdominal exam: Present: soft, normal bowel sounds - Rectal Rectal exam: Present: deferred - Extremities Exam Extremities exam: Present: normal inspection - Back Exam Back exam: Present: normal inspection - Neurological Exam Neurological exam: Present: alert, oriented X3 - Psychiatric Psychiatric exam: Present: normal affect, normal mood - Skin Skin exam: Present: warm, dry, intact, normal color. Absent: rash ED Course Vital Signs 06/26/22 23:36 Temperature 97.3 F L Pulse Rate 64 Respiratory 16 Rate Blood Pressure 130/72 [Right] O2 Sat by Pulse 96 Oximetry Critical care attestation.: If time is entered above; I have spent that time in minutes in the direct care of this critically ill patient, excluding procedure time. ED Disposition Condition: Stable Instructions: Medicine Refill at the Emergency Department Prescriptions: levETIRAcetam [Keppra TAB] 500 mg PO BID 30 Days #60 tablet Referrals: DAYSI HERNANDEZ MD [Staff Physician] - 3-5 Days
== END 2022-06-27 07:30 | disposition home or self-care (01) ==
LOC: ED 23:18
DX: R56.9 Unspecified convulsions (principal); Z76.0 Encounter for issue of repeat prescription
CPT/HCPCS: 80307; 99283